=== PATIENT | male | born 1955 | race Two or more races ===

== ENCOUNTER → 2016-05-04 | Outpatient (CLI) | payer BC ==
--- NOTE | 2016-05-04 09:31 | MR ---
EXAMINATION TYPE: MR cervical spine wo con DATE OF EXAM: 05/04/2016 7:42 AM COMPARISON: NONE HISTORY: csp disc degeneration, neck and right shoulder pain TECHNIQUE: Multiplanar, multisequence images of the cervical spine were acquired. C2-C3: No evidence for degenerative disc disease. No disc bulge/herniation or protrusion. No Canal stenosis. Foramina are patent bilaterally. C3-C4: Broad-based disc bulges anterior thecal sac compression. This may be slightly greater to the l eft paracentral left lateral direction. There is severe left and moderate right foraminal stenosis. C orrelate with radicular symptoms. C4-C5: Small central disc protrusion is present with anterior thecal sac contact. No AP spinal canal stenosis is present. Cord contact may be present. There is moderate bilateral foraminal narrowing fro m uncovertebral joint hypertrophy. C5-C6: There is central disc bulging some left paracentral and left lateral disc bulge may be present at the origin of the foramen. Correlate with left radicular symptoms. Uncovertebral joint hypertroph y is contributing to bilateral foraminal narrowing. Some endplate spurring is present bilaterally. No definite cord contact is evident. This is in close approximation with spinal cord however. C6-C7: Some minimal subsequent ligamentous central disc herniation may be present. Mild broad-based d isc bulge is present without cord contact. Mild anterior thecal sac flattening is present. Uncoverteb ral joint hypertrophy is present with moderate left and mild right foraminal narrowing. C7-T1: Uncovertebral joint hypertrophy is causing bilateral mild foraminal narrowing. Mild disc bulgi ng is anterior thecal sac contact. No cord contact is evident. No spinal canal stenosis is present. Cervical segments are intact. There is normal alignment. Cervical spinal cord is of normal signal. Craniovertebral junction relationships are within normal limits. IMPRESSION: Foraminal stenosis greatest at C3-4 on the left. 4 moderate foraminal narrowing is present within the mid cervical spine from uncovertebral joint hypertrophy. 2. Disc bulging notably at C3-4 C4-5 with anterior thecal sac compression. This comes in close approx imation with spinal cord without deformity. 3. Correlate with left C5-C6 radicular symptoms do uncovertebral joint hypertrophy, left paracentral left lateral disc bulge and endplate spurring.
== END | disposition home or self-care (01) ==
LOC: RADMRIMAIN 07:05
PROVIDERS: ATTEND Internal Medicine
DX: M48.02 Spinal stenosis, cervical region (principal); M50.221 Other cervical disc displacement at C4-C5 level; M50.222 Other cervical disc displacement at C5-C6 level; M50.30 Other cervical disc degeneration, unspecified cervical region
CPT/HCPCS: 72141

== ENCOUNTER → 2021-11-11 | Outpatient (CLI) | payer BC, MEDICARE ==
[~2021-11-11] MED LIST: BEBTELOVIMAB (EUA) 175 MG/2 ML VIAL IV NR; SODIUM CHLORIDE 0.9% 500 ML 500 ML in EMPTY BAG 1 BAG IV PRN
[2021-11-11 14:03] VITALS: TEMP 98.4
[2021-11-11 14:27] VITALS: BP 143/73; PULSE 71; RESP 16
== END ==
LOC: PROCWHC3 12:45
PROVIDERS: ATTEND Nurse Practitioner Adult Health
DX: U07.1 COVID-19 (principal); Z88.0 Allergy status to penicillin; Z88.1 Allergy status to other antibiotic agents; Z91.030 Bee allergy status
CPT/HCPCS: Q0222; M0222

== ENCOUNTER → 2023-05-19 | Outpatient (CLI) | payer MEDICARE ==
--- NOTE | 2023-05-25 14:00 | MR ---
EXAMINATION TYPE: MR sacroiliac joints wo con DATE OF EXAM: 05/19/2023 COMPARISON: None HISTORY: Low back pain into left side x4 months CONTRAST: 0 mL intravenous Gadavist. TECHNIQUE: Multiplanar, multisequence images of the lumbar spine were acquired. Images were obtained through the sacrum and coccyx. FINDINGS: Cord terminates at the L1 level. Sacrum: The sacrum from S2 through the coccyx has a normal signal no spinal canal stenosis sacrum spa ce is normal. There is abnormal signal within the S1 level. Please see the L5-S1 disc level for addit ional discussion. L5-S1: There is diminished signal through the disc space. This is slightly hyperintense on the invers ion recovery and T2 weighted sequences There is loss of signal through the L5 and S1 vertebral body l evels. There is a collection of increased signal within the S1 vertebral body which is hyperintense o n T2 and hypointense on T1 weighted sequences. This extends towards the posterior superior endplate o f S1. This extends to nearly the osseous 1 S2 disc level. This appears to be fairly well marginated. Sagittal inversion recovery weighted sequences couple of small rounded areas are in the inferior endp late of L5. Consider osteomyelitis within the differential. Discitis should be considered at this lev el. L4-L5: No significant disc bulge or disc herniation. No spinal canal stenosis. No foraminal stenosi s. Mild facet hypertrophy is present. L3-L4: There is narrowing of disc height. Minimal endplate changes are present. No spinal canal sten osis. Mild foraminal narrowing is present.. L2-L3: No significant disc bulge or disc herniation. No spinal canal stenosis. No foraminal stenosi s. L1-L2: No significant disc bulge or disc herniation. No spinal canal stenosis. No foraminal stenosi s. T12-L1: No significant disc bulge or disc herniation. No spinal canal stenosis. No foraminal stenos is. IMPRESSION: 1. Signal abnormality within the L5 and S1 levels with hyperintense fairly well delineated collection s within the inferior L5 and superior S1 levels. Differential diagnosis should include discitis and o steomyelitis. Recommend contrast MRI [place] spine for closer evaluation. 2. Mild degenerative disc change L3-4 without stenosis.
== END | disposition home or self-care (01) ==
LOC: RADMRIMAIN 20:45
PROVIDERS: ATTEND Psychiatry & Neurology Neurology
DX: M51.36 Other intervertebral disc degeneration, lumbar region (principal); M54.42 Lumbago with sciatica, left side; M46.1 Sacroiliitis, not elsewhere classified
CPT/HCPCS: 72148; 72195

== ENCOUNTER → 2023-06-09 | Outpatient (CLI) | payer MEDICARE ==
--- NOTE | 2023-06-09 12:03 | MR ---
EXAMINATION TYPE: MR lumbar spine w con DATE OF EXAM: 06/09/2023 COMPARISON: Noncontrast MRI 05/19/2023 HISTORY: 68-year-old male M54.42, LBP, abnormal MRI lumbar 05-19-23. Technique: Multiplanar, multisequence images of the lumbar spine were obtained before and after admin istration of 7.5 mL intravenous Gadavist gadolinium contrast. FINDINGS: The previous extensive edema and marrow replacement involving the L5 and S1 vertebral bodies and to a lesser extent the superior aspect of the S2 vertebral body shows avid postcontrast enhancement. Ther e are more focal nodular enhancing areas at the inferior endplate of L5, more extensively along the s uperior endplate of S1, and in a fingerlike extension extending down the S1 vertebral body to the S2 superior endplate. Mild intradiscal enhancement L5-S1. Corresponding paravertebral soft tissue thickening and enhancement and mild ventral epidural enhancem ent at these involved levels. No evident canal compromise. There may be severe right and moderate to severe left neuroforaminal kelsi nosis at L5-S1. Also moderate to severe on the left at L4-L5 and moderate on both sides at L3-L4 and on the right at L4-L5. IMPRESSION: 1. Correlate for extensive osteomyelitis L5 and S1 vertebral bodies with extension into the superior aspect of the S2 vertebral body. Discitis at L5-S1 is not as pronounced. 2. Paravertebral soft tissue thickening with inflammatory enhancement and mild ventral epidural enhan cement along the involved levels as well. No discrete abscess.
== END | disposition home or self-care (01) ==
LOC: RADMRIMAIN 07:17
PROVIDERS: ATTEND Psychiatry & Neurology Neurology
DX: M79.89 Other specified soft tissue disorders (principal); M54.42 Lumbago with sciatica, left side
CPT/HCPCS: 72149; A9585

== ENCOUNTER → 2023-06-12 | Outpatient (CLI) | payer MEDICARE ==
[2023-06-12 20:07] LABS: Basophils # (A) 0.1 k/uL (0-0.2); Basophils % (A) 1 %; Eosinophils # (A) 0.2 k/uL (0-0.7); Eosinophils % (A) 2 %; HCT 36.4 % (39.0-53.0); HGB 12.1 gm/dL (13.0-17.5); Lymphocytes # (A) 2.5 k/uL (1.0-4.8); Lymphocytes % (A) 26 %; MCH 32.6 pg (25.0-35.0); MCHC 33.2 g/dL (31.0-37.0); MCV 98.1 fL (80.0-100.0); Macrocytosis Slight; Mean Platelet Volume 7.1; Monocytes # (A) 0.7 k/uL (0-1.0); Monocytes % (A) 7 %; Neutrophils # (A) 5.8 k/uL (1.3-7.7); Neutrophils % (A) 60 %; Platelet Count 396 k/uL (150-450); RBC 3.71 m/uL (4.30-5.90); RDW 15.3 % (11.5-15.5); WBC 9.7 k/uL (3.8-10.6)
[2023-06-12 20:21] LABS: Appearance,Urine Clear (Clear); Bilirubin,Urine Negative (Negative); Blood,Urine Negative (Negative); Color,Urine Colorless; Glucose,Urine (UA) Negative (Negative); Ketones,Urine Negative (Negative); Leukocyte Esterase,Urine Negative (Negative); Nitrite,Urine Negative (Negative); Protein,Urine Negative (Negative); Specific Gravity,Urine 1.014 (1.001-1.035); Urobilinogen,Urine <2.0 mg/dL (<2.0)
[2023-06-12 23:08] LABS: Erythrocyte Sedimentation Rate 16 mm/Hr (0-20)
== END | disposition home or self-care (01) ==
LOC: LABMAIN 19:01
PROVIDERS: ATTEND Psychiatry & Neurology Neurology
DX: M86.9 Osteomyelitis, unspecified (principal)
CPT/HCPCS: 81003; 85025; 85652; 86140; 87040; 87086

== ENCOUNTER 2023-06-16 14:23 | Inpatient (IN) | payer MEDICARE ==
[2023-06-16] MEDS ORDERED: VANCOMYCIN IV PER PHARMACY 1 EACH MISC MISCELLANE PRN (15:46)
[2023-06-16] MEDS: cefTRIAXone IN SWFI 1,000 MG/10 ML SYRINGE IVP STA (16:24)
[2023-06-16] MEDS: MORPHINE SULFATE 4 MG/ML SYRINGE IVP STA (16:24)
[2023-06-16] MEDS: VANCOMYCIN 1,250 MG in SODIUM CHLORIDE 0.9% 250 ML IVPB STA (16:24)
--- NOTE | 2023-06-16 16:33 | P.PN ---
Progress Note - Text Progress Note Date: 06/16/23 Full consult pending Spoke with 80 over the phone per report the patient was sent in for MRI abnormal findings and evaluation of lower extremity weakness. The patient has a history of trauma several months ago for which he was treated however he continued to progress and get worse MRI was done which shows now hyperintense signal on STIR and T2 images of the L5 vertebral body as well as S1-S2 vertebral bodies with likely osteomyelitis discitis-like findings. There is moderate to severe for aminal stenosis and central stenosis at L4 5 and L5-S1 related to this. There is no epidural abscess that is visible at this time. The patient is being worked up currently labs are pending what has been done to show no signs of sepsis at this time. Due to the patient's age and condition we did recommend further evaluation with computed tomography scan of the thoracolumbar spine labs to rule out any sort of pathologic disease as well as a thorough neuro exam to assess for need of MRI of cervical and thoracic spine. These are warranted anyways due to neural axial imaging and potential infection in these areas as well. Currently the patient is neurovascularly intact per report he does have some lower extremity weakness and radiculopathy of which is newer for him. He has some back pain as well. The patient is currently being treated with vancomycin and cefepime. He will be admitted to medicine with spine surgery and infectious disease consults.
--- NOTE | 2023-06-16 16:47 | ED ---
General Adult HPI - General Chief complaint: Recheck/Abnormal Lab/Rx Stated complaint: Abn labs Time Seen by Provider: 06/16/23 15:23 Source: patient Mode of arrival: ambulatory Limitations: no limitations - History of Present Illness Initial comments: Chay is a 68yo M who is sent to the ER via vehicle from his neurologist office. Patient has been dealing with low back pain and left leg sciatica since a fall around [facility] of last year. Symptoms have been progressively worsening patient is now exhibiting left foot drop. Neurologist has performed an outpatient MRI of the spine and SI joints as well as the MRI of the lumbar spine with contrast which was performed 7 days ago and was concerning for extensive osteomyelitis with discitis. Patient states that he has had progressively worsening pain in his low back he has been taking increasing doses of his pain medication with minimal relief. Patient does note some pain down his left leg and trouble with walking. - Related Data Home Medications Medication Instructions Recorded Confirmed HYDROcodone/APAP 10-325MG [[place] 1 tab PO Q6HR PRN 06/16/23 06/16/23 10-325] Metoprolol Succinate [Metoprolol 25 mg PO DAILY 06/16/23 06/16/23 Succinate ER] clonazePAM [KlonoPIN] 1 mg PO DAILY 06/16/23 06/16/23 traZODone HCL 100 mg PO BID 06/16/23 06/16/23 Allergies Allergy/AdvReac Type Severity Reaction Status Date / Time bee venom protein (honey bee) Allergy Unknown Unknown Verified 06/16/23 16:33 doxycycline Allergy Unknown Unknown Verified 06/16/23 16:33 Penicillins Allergy Unknown Unknown Verified 06/16/23 16:33 Childhood Review of Systems ROS Statement: Those systems with pertinent positive or pertinent negative responses have been documented in the HPI. ROS Other: All systems not noted in ROS Statement are negative. Past Medical History Past Medical History: No Reported History History of Any Multi-Drug Resistant Organisms: None Reported Past Surgical History: No Surgical Hx Reported Past Psychological History: No Psychological Hx Reported Smoking Status: Current every day smoker Past Alcohol Use History: Occasional Past Drug Use History: Marijuana General Exam Limitations: no limitations Head exam: Present: atraumatic Eye exam: Present: normal appearance ENT exam: Present: normal exam Neck exam: Present: normal inspection Respiratory exam: Present: normal lung sounds bilaterally. Absent: respiratory distress Cardiovascular Exam: Present: regular rate GI/Abdominal exam: Absent: distended Rectal exam: Present: deferred Extremities exam: Present: full ROM Back exam: Present: tenderness, paraspinal tenderness, vertebral tenderness Neurological exam: Present: alert, oriented X3 Expanded Motor strength exam: RLE: 4 (decreased strength in dorsiflexion ), LLE: 5 DTR: Patellar (R): 2+, Patellar (L): 1+ Eye Response: (4) open spontaneously Motor Response: (6) obeys commands Verbal Response: (5) oriented Psychiatric exam: Present: normal affect, normal mood Skin exam: Present: warm, dry, intact Course Vital Signs 06/16/23 06/16/23 14:31 17:44 Temperature 97.8 F Pulse Rate 74 60 Respiratory 20 18 Rate Blood Pressure 188/93 173/86 O2 Sat by Pulse 98 98 Oximetry Medical Decision Making - Medical Decision Making Was pt. sent in by a medical professional or institution (, PA, WELDING TECHNICIAN, urgent care, hospital, or [facility]...) When possible be specific @ -Yes sent by Dr. Marinelli neurologist Did you speak to anyone other than the patient for history (EMS, parent, family, police, friend...)? What history was obtained from this source @ -No Did you review nursing and triage notes (agree or disagree)? Why? @ -I reviewed and agree with nursing and triage notes Were old charts reviewed (outside hosp., previous admission, EMS record, old EKG, old radiological studies, urgent care reports/EKG's, [facility] records)? Report findings @ -Previous labs and MRI imaging was reviewed Differential Diagnosis (chest pain, altered mental status, abdominal pain women, abdominal pain men, vaginal bleeding, weakness, fever, dyspnea, syncope, headache, dizziness, GI bleed, back pain, seizure, CVA, palpatations, mental health)? @ -Differential includes osteomyelitis/discitis, metastatic disease EKG interpreted by me (3pts min.). @ -As above X-rays interpreted by me (1pt min.). @ -None done CT interpreted by me (1pt min.). @ -CT of the thorax and lumbar spine was performed reviewed by me I do see some lytic appearing lesions in L5-S1 as well as inflammatory changes at the disc. No obvious fractures or malalignment. U/S interpreted by me (1pt. min.). @ -None done What testing was considered but not performed or refused? (CT, X-rays, U/S, labs)? Why? @ -MRI skull to pelvis will be done inpatient per Dr. Patel's and What meds were considered but not given or refused? Why? @ -None Did you discuss the management of the patient with other professionals (professionals i.e. Dr., PA, WELDING TECHNICIAN, lab, RT, psych nurse, social worker psychiatric, motor vehicle representative, teacher, corporate officer, case management assistant)? Give summary @ -Discussed with admitting physician Dr. Hurtado as well as spine surgeon Dr. Patelson Was smoking cessation discussed for >3mins.? @ -No Was critical care preformed (if so, how long)? @ -No Were there social determinants of health that impacted care today? How? (Homelessness, low income, unemployed, alcoholism, drug addiction, transportation, low edu. Level, literacy, decrease access to med. care, [place] [facility], rehab)? @ -No Was there de-escalation of care discussed even if they declined (Discuss DNR or withdrawal of care, Hospice)? DNR status @ -No What co-morbidities impacted this encounter? (DM, HTN, Smoking, COPD, CAD, Cancer, CVA, ARF, Chemo, Hep., AIDS, mental health diagnosis, sleep apnea, morbid obesity)? @ -None Was patient admitted / discharged? Hospital course, mention meds given and route, prescriptions, significant lab abnormalities, going to OR and other pertinent info. @ -Admit The patient was seen and evaluated, history is obtained from the patient and review of the patient's labs and imaging. Patient has MRI concerning for osteomyelitis with discitis. These results were discussed with the spine surgeon who has concern for osteomyelitis and discitis versus metastatic disease. Labs were obtained including a septic workup, PSA, serum and urine electropheresis. ESR and CRP had been performed on Wednesday and were not elevated, Dr. Patel send stated these will be repeated during admission for trending. Undiagnosed new problem with uncertain prognosis? @ -Yes Drug Therapy requiring intensive monitoring for toxicity (Heparin, Nitro, Insulin, Cardizem)? @ -No Were any procedures done? @ -No Diagnosis/symptom? @ -Lumbar spine osteomyelitis and discitis Acute, or Chronic, or Acute on Chronic? @ -Default Uncomplicated (without systemic symptoms) or Complicated (systemic symptoms)? @ -Complicated Side effects of treatment? @ -No Exacerbation, Progression, or Severe Exacerbation? @ -No Poses a threat to life or bodily function? How? (Chest pain, [place], [place], pneumonia, PE, COPD, DKA, ARF, appy, cholecystitis, CVA, Diverticulitis, Homicidal, Suicidal, threat to staff... and all critical care pts) @ -Yes can advance to epidural abscess sepsis septic shock and - Lab Data Result diagrams: 06/16/23 16:19 06/16/23 16:19 Lab Results 06/16/23 06/16/23 06/16/23 Range/Units 16:19 16:19 16:19 WBC 11.3 H (3.8-10.6) k/uL RBC 3.79 L (4.30-5.90) m/uL Hgb 12.2 L (13.0-17.5) gm/dL Hct 37.7 L (39.0-53.0) % MCV 99.5 (80.0-100.0) fL MCH 32.1 (25.0-35.0) pg MCHC 32.2 (31.0-37.0) g/dL RDW 15.1 (11.5-15.5) % Plt Count 399 (150-450) k/uL MPV 7.1 Neutrophils % 64 % Lymphocytes % 24 % Monocytes % 7 % Eosinophils % 2 % Basophils % 1 % Neutrophils # 7.2 (1.3-7.7) k/uL Lymphocytes # 2.7 (1.0-4.8) k/uL Monocytes # 0.8 (0-1.0) k/uL Eosinophils # 0.2 (0-0.7) k/uL Basophils # 0.1 (0-0.2) k/uL Macrocytosis Slight PT 10.1 (10.0-12.5) sec INR 0.9 (<1.2) APTT 23.8 (22.0-30.0) sec Sodium 139 (137-145) mmol/L Potassium 4.1 (3.5-5.1) mmol/L Chloride 103 (98-107) mmol/L Carbon Dioxide 30 (22-30) mmol/L Anion Gap 6 mmol/L BUN 9 (9-20) mg/dL Creatinine 0.67 (0.66-1.25) mg/dL Est GFR (CKD-EPI)AfAm >90 (>60 ml/min/1.73 sqM) Est GFR (CKD-EPI)NonAf >90 (>60 ml/min/1.73 sqM) Glucose 83 (74-99) mg/dL Plasma Lactic Acid Paulo (0.7-2.0) mmol/L Calcium 9.4 (8.4-10.2) mg/dL Total Bilirubin 0.6 (0.2-1.3) mg/dL AST 33 (17-59) U/L ALT 19 (4-49) U/L Alkaline Phosphatase 100 (38-126) U/L Total Protein 7.7 (6.3-8.2) g/dL Albumin 4.2 (3.5-5.0) g/dL 06/16/23 Range/Units 16:19 WBC (3.8-10.6) k/uL RBC (4.30-5.90) m/uL Hgb (13.0-17.5) gm/dL Hct (39.0-53.0) % MCV (80.0-100.0) fL MCH (25.0-35.0) pg MCHC (31.0-37.0) g/dL RDW (11.5-15.5) % Plt Count (150-450) k/uL MPV Neutrophils % % Lymphocytes % % Monocytes % % Eosinophils % % Basophils % % Neutrophils # (1.3-7.7) k/uL Lymphocytes # (1.0-4.8) k/uL Monocytes # (0-1.0) k/uL Eosinophils # (0-0.7) k/uL Basophils # (0-0.2) k/uL Macrocytosis PT (10.0-12.5) sec INR (<1.2) APTT (22.0-30.0) sec Sodium (137-145) mmol/L Potassium (3.5-5.1) mmol/L Chloride (98-107) mmol/L Carbon Dioxide (22-30) mmol/L Anion Gap mmol/L BUN (9-20) mg/dL Creatinine (0.66-1.25) mg/dL Est GFR (CKD-EPI)AfAm (>60 ml/min/1.73 sqM) Est GFR (CKD-EPI)NonAf (>60 ml/min/1.73 sqM) Glucose (74-99) mg/dL Plasma Lactic Acid Paulo 0.7 (0.7-2.0) mmol/L Calcium (8.4-10.2) mg/dL Total Bilirubin (0.2-1.3) mg/dL AST (17-59) U/L ALT (4-49) U/L Alkaline Phosphatase (38-126) U/L Total Protein (6.3-8.2) g/dL Albumin (3.5-5.0) g/dL Disposition Clinical Impression: Osteomyelitis of lumbar spine, Discitis, Foot drop, left Disposition: ADMITTED IP TO THIS [facility] Condition: Serious Is patient prescribed a controlled substance at d/c from ED?: No
[2023-06-16] MEDS ORDERED: NALOXONE 0.4 MG/ML 1 ML VIAL IV PRN (16:50)
[2023-06-16 16:53] LABS: Basophils # (A) 0.1 k/uL (0-0.2); Basophils % (A) 1 %; Eosinophils # (A) 0.2 k/uL (0-0.7); Eosinophils % (A) 2 %; HCT 37.7 % (39.0-53.0); HGB 12.2 gm/dL (13.0-17.5); Lymphocytes # (A) 2.7 k/uL (1.0-4.8); Lymphocytes % (A) 24 %; MCH 32.1 pg (25.0-35.0); MCHC 32.2 g/dL (31.0-37.0); MCV 99.5 fL (80.0-100.0); Macrocytosis Slight; Mean Platelet Volume 7.1; Monocytes # (A) 0.8 k/uL (0-1.0); Monocytes % (A) 7 %; Neutrophils # (A) 7.2 k/uL (1.3-7.7); Neutrophils % (A) 64 %; Platelet Count 399 k/uL (150-450); RBC 3.79 m/uL (4.30-5.90); RDW 15.1 % (11.5-15.5); WBC 11.3 k/uL (3.8-10.6)
--- NOTE | 2023-06-16 17:01 | CT ---
EXAMINATION TYPE: CT thor lumbar spine wo con DATE OF EXAM: 06/16/2023 COMPARISON: Recent MRI 06/09/2023 HISTORY: abnormal MRI, pain following fall one month ago CT DLP: 765.[address] of the thoracic and lumbar spine was performed. Bone and soft tissue window settings a re submitted as well as coronal and sagittal reconstructions. Thoracic spine: No evidence for thoracic spine fracture. Discitis or bony destructive process to suggest osteomyelitis. Moderate to severe multilevel degenera tive disc space narrowing greatest at T11-12 through T8-9. Ventral spondylosis. No evidence for centr al stenosis. Correlate with MRI. Mucous debris is seen at the level of the demond. Visualized lung fi elds are within normal limits. L1-L2: Normal disc space height. No disc herniation protrusion or central stenosis. No facet joint arthropathy. No evidence for foraminal encroachment. L2-L3: Vacuum disc. Posterior disc bulge. Mild encapsulating spur. Spondylosis noted. No central sten osis appreciated at this time. L3-L4: Moderate disc desiccation with moderate circumferential disc bulge greatest posterocentrally i nto the right. There is evidence of moderate central stenosis and right foraminal encroachment. L4-L5: Vacuum disks noted. Posterior disc bulge. No evidence for disc herniation although there is br oad-based posterior disc bulge with effacement of ventral thecal sac and bilateral lateral recess kelsi nosis. Mild central stenosis difficult to exclude. Bilateral foraminal encroachment left greater than right. L5-S1: Abnormal sclerosis and lucency involving the middle vertebral body of L5 as well as the inferi or endplate in addition to the S1 vertebral segment. Findings are compatible with a discitis with und erlying osteomyelitis. Epidural thickening redemonstrated as was seen on recent MRI. Paraspinal infla mmatory change noted without drainable abscess at this time.No obvious epidural abscess component alt selam MRI is much more sensitive No paraspinal masses are identified. Lumbar segments are free if fracture. IMPRESSION: 1. L5-S1 discitis with L5 and S1 osteomyelitis. No obvious epidural collection on this unenhanced bk dy. MRI with contrast is more sensitive. Epidural thickening redemonstrated as was seen on recent MRI . Paraspinal inflammatory change noted without drainable abscess at this time.
[2023-06-16 17:04] LABS: ALT 19 U/L (4-49); AST 33 U/L (17-59); African American GFR (CKD) >90 (>60 ml/min/1.73 sqM); Albumin 4.2 g/dL (3.5-5.0); Alkaline Phosphatase 100 U/L (38-126); Anion Gap 6 mmol/L; Blood Urea Nitrogen 9 mg/dL (9-20); Calcium 9.4 mg/dL (8.4-10.2); Carbon Dioxide 30 mmol/L (22-30); Chloride 103 mmol/L (98-107); Glucose 83 mg/dL (74-99); Non-African American GFR(CKD) >90 (>60 ml/min/1.73 sqM); Potassium 4.1 mmol/L (3.5-5.1); Sodium 139 mmol/L (137-145); Total Bilirubin 0.6 mg/dL (0.2-1.3); Total Protein 7.7 g/dL (6.3-8.2)
[2023-06-16 17:11] LABS: INR 0.9 (<1.2); Partial Thromboplastin Time 23.8 sec (22.0-30.0); Prothrombin Time 10.1 sec (10.0-12.5)
[2023-06-16] MEDS: MORPHINE SULFATE 4 MG/ML SYRINGE IV PRN (17:46)
[2023-06-16] MEDS: HYDROcodone/APAP 5-325MG 1 EACH TAB PO PRN (19:00)
[2023-06-17] MEDS ORDERED: VANCOMYCIN IV PER PHARMACY 1 EACH MISC MISCELLANE PRN (00:50)
[2023-06-17] MEDS: ALPRAZolam 0.5 MG TAB PO PRN (01:08)
--- NOTE | 2023-06-17 01:12 | P.HPIM ---
History of Present Illness H&P Date: 06/16/23 Chief Complaint: Low back pain lower extremity weakness 68-year-old male no significant past medical history Patient coming in for evaluation of vertebral spine osteomyelitis. Patient had sustained showed an episode of weakness and pain in his lower extremity around giving of last year since then he has been having some chronic low back pain with radiculopathy to the bilateral lower extremities mainly left lower extremity he has been through multiple doctors physical therapy occupational therapy resulting in minimal steady improvements he had multiple imaging of his lower back and recently had an MRI of his lumbar spine which was suspicious for osteomyelitis discitis for which his neurologist recommended he comes to the hospital for further evaluation patient otherwise denies any fevers chills denies any open wounds denies any history of surgery denies any IV drug abuse he denies any significant unintentional weight loss he reports that he gained some weight initially after the injury however since his physical therapy and increased activity he has been losing that extra weight he denies any bleeding denies any difficulties with urination or bowel movements Patient is able to ambulate however he has an awkward walk due to weakness in his left lower extremity therefore he seems to have some degree of ataxia but denies any falling He also reports some decreased hearing in his right ear but denies any vision changes headache or any other focal neurodeficits patient denies any chest pain trouble breathing fevers chills nausea vomiting GI bleeding abdominal pain MRI of the lumbar spine was concerning for extensive osteomyelitis L5 and S1 lev tebral bodies with extension into the superior aspect of this to vertebral body discitis at L5-S1 is not as pronounced paravertebral soft tissue thickening with inflammatory enhancement and mild ventral epidural enhancement along the involved levels as well no discrete abscess review of systems Pertinent positives as noted in HPI. All other systems were reviewed and are negative on exam Constitutional: No acute distress, conversant, pleasant Eyes: Anicteric sclerae, moist conjunctiva, Pupils equal round reactive to light ENMT: NC/AT Oropharynx clear, no erythema, or exudates Neck: Supple, no masses, or JVD No carotid bruits No thyromegaly Lungs: Clear to auscultation Clear to percussion Normal respiratory effort, no accessory muscle use Cardiovascular: Heart regular in rate and rhythm, No murmurs, gallops, or rubs No peripheral edema Abdominal: Soft Nontender, no guarding, rebound or rigidity Abdomen moving with respiration Normoactive bowel sounds No point tenderness over the lumbar spine Extremities: No digital cyanosis No clubbing Pedal pulses intact and symmetrical Radial pulses intact and symmetrical No calf tenderness Psychiatric: Alert and oriented to person, place and time Appropriate affect fair judgement Neuro Muscles Strength 5/5 in bilateral upper extremities, 3 out of 5 in le ft lower extremity 4 out of 5 in right lower extremity Sensation to light touch grossly present throughout Cranial nerves II-XII grossly intact Lymphatics: no palpable cervical or supraclavicular lymph nodes Past Medical History Past Medical History: No Reported History History of Any Multi-Drug Resistant Organisms: None Reported Past Surgical History: No Surgical Hx Reported Past Psychological History: No Psychological Hx Reported Smoking Status: Current every day smoker Past Alcohol Use History: Occasional Past Drug Use History: Marijuana Medications and Allergies Home Medications Medication Instructions Recorded Confirmed Type HYDROcodone/APAP 10-325MG [[place] 1 tab PO Q6HR PRN 06/16/23 06/16/23 History 10-325] Metoprolol Succinate [Metoprolol 25 mg PO DAILY 06/16/23 06/16/23 History Succinate ER] clonazePAM [KlonoPIN] 1 mg PO DAILY 06/16/23 06/16/23 History traZODone HCL 100 mg PO BID 06/16/23 06/16/23 History Allergies Allergy/AdvReac Type Severity Reaction Status Date / Time bee venom protein (honey bee) Allergy Unknown Unknown Verified 06/16/23 16:33 doxycycline Allergy Unknown Unknown Verified 06/16/23 16:33 Penicillins Allergy Unknown Unknown Verified 06/16/23 16:33 Childhood Physical Exam Vitals: Vital Signs Temp Pulse Pulse Resp BP BP Pulse Ox 06/16/23 21:24 98.0 F 62 18 183/91 98 06/16/23 20:00 18 166/86 97 06/16/23 17:44 60 18 173/86 98 06/16/23 14:31 97.8 F 74 20 188/93 98 Intake and Output 06/16/23 06/16/23 06/17/23 14:59 22:59 06:59 Other: Weight 73.482 kg 73.482 kg Results CBC & Chem 7: 06/16/23 16:19 06/16/23 16:19 Labs: Abnormal Lab Results - Last 24 Hours (Table) 04/24/24 Range/Units 16:19 WBC 11.3 H (3.8-10.6) k/uL RBC 3.79 L (4.30-5.90) m/uL Hgb 12.2 L (13.0-17.5) gm/dL Hct 37.7 L (39.0-53.0) % Assessment and Plan Assessment: 68-year-old male with no significant past medical history has been having chronic low back pain since a fall due to lower extremity weakness back in December 2022 he went through physical therapy with gradual slow improvement [place] recently had an MRI of his lower back which was concerning for his neurologist regarding possible osteomyelitis and discitis at level of L5-S1 for which he presented to the hospital I discussed the case with ED doctor and accepted the admission for chronic low back pain with left lower extremity radiculopathy with imaging findings concerning for osteomyelitis/discitis with anticipated length of stay more than 2 midnights Osteomyelitis/discitis in the lumbar sacral spine Follow-up cultures Vancomycin dosing by pharmacy Orthopedic spine consult ID consult Tylenol for fever White count 11.3 Afebrile Fall precautions Pain control with [place] 10 and as needed every 6 hours 1 tab orally Morphine 4 mg IV push every 6 hours as needed Check ESR CRP Check blood cultures MRI of the lumbar spine was concerning for extensive osteomyelitis L5 and S1 vertebral bodies with extension into the superior aspect of this to vertebral body discitis at L5-S1 is not as pronounced paravertebral soft tissue thickening with inflammatory enhancement and mild ventral epidural enhancement along the involved levels as well no discrete abscess Rest of blood work unremarkable sodium 139 potassium 4.1 BUN 9 creatinine 0.67 Patient reports decreased hearing right ear with occasional headache check brain CT scan without contrast Full code DVT prophylaxis heparin subcu 3 times daily
[2023-06-17 03:42] LABS: Protein, Total 7.9 g/dL (6.2-8.2)
[2023-06-17] MEDS ORDERED: VANCOMYCIN 1,250 MG in SODIUM CHLORIDE 0.9% 250 ML IVPB SCH (04:00)
[2023-06-17] MEDS: VANCOMYCIN 1,250 MG in SODIUM CHLORIDE 0.9% 250 ML IVPB SCH (05:57)
--- NOTE | 2023-06-17 08:40 | P.CNOR ---
History of Present Illness - [facility] Consult date: 06/17/23 Requesting physician: Blanche Deleon Consult reason: low back pain, other (Spinal osteomyelitis) History of present illness: History of Presenting Illness Patient is a pleasant 68-year-old male who presented to the ER for evaluation of possible lumbar spine osteomyelitis. Patient reports that he was sent in by Dr. Marinelli after reviewing MRI results. Patient states back in he had a severe fall with hitting his head with LOC. Patient reports that he did lay around home for approximately 1 week. He did not seek medical attention. Patient reports he continued with moderate amount of low back pain that radiated into the bilateral lower extremities associated with numbness and tingling, he reports the left lower extremity is worse. Patient states he was sent to see Dr. Marinelli by Dr. Velasquez for an evaluation and pain management. Patient states he did multiple rounds of physical therapy without relief. Patient does report that he lives with his spouse. He is normally independent. Patient states he is aware of his unsteady gait, although he denies using any assistive devices. Patient reports no medical or orthopedic history. MRI of the lumbar spine with contrast was taken on 06/09/2023 and demonstrated ex tensive osteomyelitis at L5 and S1 vertebral bodies with extension into the superior aspect of the S2 vertebral body. Discitis at L5-S1 is not as pronounced. Paravertebral soft tissue thickening with inflammatory enhancement and mild ventral epidural enhancement along the involved levels as well. No discrete abscess. Patient seen and examined this morning. Patient is resting in bed. Patient reports a moderate amount of lumbar pain that radiates into the bilateral lower extremities, associated with numbness and tingling. Patient demonstrates left lower extremity weakness during exam. Review of Systems Pertinent positives and negatives as discussed in HPI, a complete review of systems was performed and all other systems are negative. Physical Examination General: The patient is awake and alert, in no acute distress Skin: Skin is warm and dry with no obvious rashes or lesions. Eye: Pupils are equal, round and reactive to light, extra-ocular movements are intact; there is normal conjunctiva bilaterally. Neck: The neck is supple, there is no tenderness and ROM intact. Cardiovascular: There is a regular rate and rhythm. No murmur, rub or gallop is appreciated. Respiratory: Respirations are non-labored, breath sounds are equal. Gastrointestinal: Soft, non-distended, non-tender abdomen. Back: There is moderate tenderness to palpation in the midline lumbar region. There is no obvious deformity. Musculoskeletal: ROM limited secondary to pain. Bilateral upper extremities 5/5, Right lower extremity 4+/5, Left lower extremity knee flexor 4/5, ankle dorsiflexor 4-/5, ankle plantarflexion 3+/5 and extensor hallucis 3+/5. Neurological: CN 2-12 intact. There are no obvious motor or sensory deficits. Movement and coordination equal and intact. Sensory exam to light touch intact C5-T1 and intact from L2-S1. Reflexes 2/4 in bilateral upper and lower extremities. Negative Hoffmans, babinski, and clonus signs. Psychiatric: Cooperative, appropriate mood & affect, normal judgment. Assessment and Plan Osteomyelitis/discitis in the lumbar sacral spine Lumbar pain Bilateral lower extremity radiculopathy Left lower extremity weakness At this time we recommend surgical intervention of a biopsy of S1 scheduled for tomorrow, 06/18/2023. Patient has also been boarded for an L4-S1 decompression and fusion for 06/22/2023. Continue with IV antibiotic therapy. Patient will be NPO at Midnight for biopsy tomorrow. Continue with pain management. Awaiting labs of SED rate and CRP. MRI of the Cervical and Thoracic Spine w& w/o contrast have been order to further evaluate the spine in entirety. 2. Appreciate medical management 3. Pain management -continue with IV morphine and oral [place]. Toradol and Gabapentin have been ordered. 4. GI prophylaxis - senna 5. DVT prophylaxis - heparin 6. PT/OT - weightbearing as tolerated with a walker as needed. LSO brace has been ordered. 7. Appreciate consult I reviewed and discussed this case with my attending Dr. Hogan, whom has reviewed this chart and films and is in agreement with assessment and plan of care as outlined above. I have personally seen and examined the patient, performed the documentation and the assessment and plan as written. Number of minutes spent on the visit: 35m. Past Medical History Past Medical History: No Reported History History of Any Multi-Drug Resistant Organisms: None Reported Past Surgical History: No Surgical Hx Reported Past Psychological History: No Psychological Hx Reported Smoking Status: Current every day smoker Past Alcohol Use History: Occasional Past Drug Use History: Marijuana Medications and Allergies Home Medications Medication Instructions Recorded Confirmed Type HYDROcodone/APAP 10-325MG [[place] 1 tab PO Q6HR PRN 06/16/23 06/16/23 History 10-325] Metoprolol Succinate [Metoprolol 25 mg PO DAILY 06/16/23 06/16/23 History Succinate ER] clonazePAM [KlonoPIN] 1 mg PO DAILY 06/16/23 06/16/23 History traZODone HCL 100 mg PO BID 06/16/23 06/16/23 History Allergies Allergy/AdvReac Type Severity Reaction Status Date / Time bee venom protein (honey bee) Allergy Unknown Unknown Verified 06/16/23 16:33 doxycycline Allergy Unknown Unknown Verified 06/16/23 16:33 Penicillins Allergy Unknown Unknown Verified 06/16/23 16:33 Childhood Results - Labs Labs: Abnormal Lab Results - Last 24 Hours (Table) 06/16/23 Range/Units 16:19 WBC 11.3 H (3.8-10.6) k/uL RBC 3.79 L (4.30-5.90) m/uL Hgb 12.2 L (13.0-17.5) gm/dL Hct 37.7 L (39.0-53.0) % H & H 06/16/23 Range/Units 16:19 Hgb 12.2 L (13.0-17.5) gm/dL Hct 37.7 L (39.0-53.0) % Coagulation 06/16/23 Range/Units 16:19 INR 0.9 (<1.2) Result Diagrams: 06/16/23 16:19 06/16/23 16:19
[2023-06-17 08:42] LABS: Basophils # (A) 0.1 k/uL (0-0.2); Basophils % (A) 1 %; Eosinophils # (A) 0.4 k/uL (0-0.7); Eosinophils % (A) 5 %; HCT 35.7 % (39.0-53.0); HGB 11.1 gm/dL (13.0-17.5); Lymphocytes # (A) 2.6 k/uL (1.0-4.8); Lymphocytes % (A) 26 %; MCH 31.5 pg (25.0-35.0); MCV 101.6 fL (80.0-100.0); Macrocytosis Slight; Mean Platelet Volume 7.8; Monocytes % (A) 10 %; Neutrophils # (A) 5.5 k/uL (1.3-7.7); Neutrophils % (A) 56 %; Platelet Count 426 k/uL (150-450); RBC 3.52 m/uL (4.30-5.90); RDW 14.9 % (11.5-15.5); WBC 9.8 k/uL (3.8-10.6)
[2023-06-17] MEDS: HEPARIN SODIUM,PORCINE 5,000 UNIT/ML 1 ML VIAL SQ SCH (09:46)
[2023-06-17] MEDS: METOPROLOL SUCCINATE (ER) 25 MG TAB.ER.24H PO SCH (09:46)
[2023-06-17] MEDS: KETOROLAC 15 MG/ML 1 ML VIAL IVP SCH (09:47)
[2023-06-17] MEDS: GABAPENTIN 300 MG CAP PO SCH (09:47)
[2023-06-17 11:07] LABS: African American GFR (CKD) >90 (>60 ml/min/1.73 sqM); Anion Gap 4 mmol/L; Blood Urea Nitrogen 9 mg/dL (9-20); Carbon Dioxide 35 mmol/L (22-30); Chloride 102 mmol/L (98-107); Glucose 66 mg/dL (74-99); Non-African American GFR(CKD) >90 (>60 ml/min/1.73 sqM); Potassium 4.2 mmol/L (3.5-5.1); Sodium 141 mmol/L (137-145)
--- NOTE | 2023-06-17 11:19 | CT ---
EXAMINATION TYPE: CT brain wo con DATE OF EXAM: 06/17/2023 COMPARISON: None HISTORY: 68-year-old male right sided hearing loss, occasional headaches TECHNIQUE: Examination was done in axial plane without intravenous contrast. Coronal and sagittal r econstructions performed. CT DLP: 1168 mGycm Automated exposure control for dose reduction was used. FINDINGS: There is no evidence of acute intracranial hemorrhage, acute ischemic changes, mass, mass-effect, or extra-axial fluid collection. There is no effacement of cerebral sulci or basal subarachnoid cister ns. There is no hydrocephalus. There is no midline shift. Arellano-white matter distinction is preserv ed. Moderate to severe mucosal thickening throughout the ethmoid air cells. Mild within the left greater than right maxillary sinuses and right frontal sinus. Slight rightward nasal septal deviation. Mastoi d air cells well pneumatized. Orbits and globes appear intact. IMPRESSION: No acute intracranial abnormality seen. Moderate to severe chronic bilateral ethmoid sinus disease an d mild elsewhere throughout the paranasal sinuses.
[2023-06-17] MEDS: ALPRAZolam 1 MG TAB PO STA (12:58)
[2023-06-17] MEDS: HYDROcodone/APAP 10-325MG 1 EACH TAB PO PRN (12:58)
--- NOTE | 2023-06-17 15:01 | P.PN ---
Progress Note - Text Progress Note Date: 06/17/23 Attempted to see pt. He was in MRI. Will follow up in AM. Plan for biopsy of the S1 region tomorrow with subsequent plans of decompression, fixation and evacuation of L4-S1 on Wednesday06/22/23. There is severe erosion of the S1 endplate and body due to purulence and infection. There is severe collapse of L5-S1 as well as L4-5. There is pending instability of the L5-S1 region due to the bony erosion. This will allow for treatment of the instability, infection and the neurological issues patient is having as well as the severe back pain. Cont with abx per ID. Pt needs Echo of heart to look for vegitations. Blood cx pending. Cont pain control. LSO brace ordered.
--- NOTE | 2023-06-17 16:01 | P.PN ---
Subjective Progress Note Date: 06/17/23 Hospital Course: 68-year-old male with history of hypertension, anxiety presenting from outpati ent surgery office with concern for persistent low back pain of left leg pain for few months. Had outpatient MRI concerning for extensive osteomyelitis with discitis involving L5-S1. MRI shows L5-S1 discitis with L5-S1 osteomyelitis, no obvious epidural collection, epidural thickening redemonstrated. Paraspinal inflammatory changes noted. Pertinent Imaging: Subjective: Pertinent positives and negatives as discussed above, a complete review of systems was performed and all other systems are negative. Vitals Signs Reviewed. General: Nontoxic, no distress, appears at stated age Derm: Warm, dry Head: Atraumatic, normocephalic, symmetric Eyes: EOMI, no lid lag, anicteric sclera Mouth: No lip lesion, mucus membranes moist Cardiovascular: S1S2 reg, no murmur Lungs: CTA bilateral, no rhonchi, no rales, no accessory muscle use Abdominal: Soft, nontender to palpation, no guarding, no appreciable organomegaly Ext: 3/5 strength in left lower extremity, 4/5 strength in right lower e xtremity, 5/5 strength in bilateral upper extremities Neuro: CN II-XI grossly intact, no focal neuro deficits Psych: Alert, oriented, appropriate affect Data Reviewed Today: Pertinent Labs: WBC 9.8, hemoglobin 11.1, creatinine 0.71, CRP 1.1 Imaging: Head CT shows no acute intracranial abnormalities, moderate to severe chronic bilateral ethmoid sinus disease Assessment and Plan: Active: Discitis/osteomyelitis of lumbosacral spine - Orthopedic spine surgery note reviewed, continue IV antibiotics, MRI pending with contrast - On IV vancomycin, monitor renal function - ID consult pending - Pain control with IV morphine as needed, Toradol 15 IV every 6 hours, oral [place] as needed, monitor for sedation - Also on gabapentin 300 mg 3 times daily - Blood cultures pending Chronic: Hypertension DVT ppx: Subcu heparin Code status: Full code Anticipated discharge place: Pending clinical course Anticipated discharge time: Pending clinical course Objective - Vital Signs Vital signs: Vital Signs Temp 98.7 F 06/17/23 15:20 Pulse 67 06/17/23 15:20 Resp 16 06/17/23 15:20 BP 132/78 06/17/23 15:20 Pulse Ox 97 04/25/24 15:20 FiO2 Intake & Output 06/16/23 06/17/23 06/17/23 18:59 06:59 18:59 Intake Total 637 Balance 637 Weight 73.482 kg Intake: Oral 637 Other: # Voids 2 - Labs CBC & Chem 7: 06/17/23 05:57 06/17/23 10:00 Labs: Abnormal Lab Results - Last 24 Hours (Table) 06/16/23 06/17/23 06/17/23 Range/Units 16:19 05:57 05:57 WBC 11.3 H (3.8-10.6) k/uL RBC 3.79 L 3.52 L (4.30-5.90) m/uL Hgb 12.2 L 11.1 L (13.0-17.5) gm/dL Hct 37.7 L 35.7 L (39.0-53.0) % MCV 101.6 H (80.0-100.0) fL Carbon Dioxide (22-30) mmol/L Glucose (74-99) mg/dL C-Reactive Protein 1.10 H (0.00-0.80) mg/dL 06/17/23 Range/Units 10:00 WBC (3.8-10.6) k/uL RBC (4.30-5.90) m/uL Hgb (13.0-17.5) gm/dL Hct (39.0-53.0) % MCV (80.0-100.0) fL Carbon Dioxide 35 H (22-30) mmol/L Glucose 66 L (74-99) mg/dL C-Reactive Protein (0.00-0.80) mg/dL
[2023-06-17] MEDS: VANCOMYCIN TROUGH DUE 1 EACH MISC MISCELLANE ONE (18:18)
[2023-06-17 18:50] LABS: Albumin 4.35 g/dL (3.80-4.90); Gamma Globulin 1.34 g/dL (0.70-1.50)
[2023-06-17] MEDS: HYDROcodone/APAP 10-325MG 1 EACH TAB PO ONE (18:55)
--- NOTE | 2023-06-17 22:03 | MR ---
EXAMINATION TYPE: MR cspine/tspine wo/w con DATE OF EXAM: 06/17/2023 COMPARISON: MRI cervical spine 2017. CT thoracic and lumbar spine one day earlier. HISTORY: Rule out Osteomyelitis, pain and fever. TECHNIQUE: Multiplanar, multisequence imaging of cervical and thoracic spine are performed without an d with IV contrast, patient injected with 7.5 cc of gadolinium. FINDINGS: C-SPINE: Sagittal images of the cervical spine show the craniocervical junction to remain within normal limits . The cervical and upper thoracic spinal cord is grossly normal in caliber and signal. Vertebral al ignment is stable and satisfactory. The vertebral body heights are maintained. [id number] mult ilevel disc space narrowing C5-C6 through C7-T1 levels greatest at the latter with heterogeneous pleu ritic type II endplate changes anteriorly. No suspicious osseous edema or abnormal enhancement.. Axial images show C2-C3 level to remain within normal limits. Axial images at C3-C4 levels demonstrate central disc protrusion mildly effacing anterior thecal sac and uncovertebral facet degenerative changes bilaterally causing mild to moderate left greater than r ight bilateral neural foraminal narrowing. Axial images at C4-C5 levels from broad-based right paracentral/foraminal disc protrusion effacing an terolateral thecal sac and causing moderate to advanced right with [id number] left-sided neural foraminal narrowing. Axial images at C5-C6 level broad-based posterior disc protrusion effacing anterior thecal sac and ca using moderate left greater than right bilateral neural foraminal narrowing. Artifact degradation on axial images is noted. Axial images at C6-C7 level redemonstrate mild broad disc bulge minimally effacing the anterior theca l sac and causing mild to moderate bilateral neural foraminal narrowing causing. Axial images at C7-T1 level shows mild broad-based disc bulge mildly effaces the anterior thecal sac and causing moderate left greater than right bilateral neural foraminal narrowing. IMPRESSION: No suspicious edema or enhancement to suggest acute osteomyelitis. Multilevel degenerativ e changes are redemonstrated with interval degenerative progression from 2017 MRI noted most prominen t in the mid cervical spine levels. T-SPINE: Spinal cord shows normal course, caliber, and signal as it courses the thoracic spine. Vertebral bod y heights and alignment are satisfactory. There is heterogeneous diminished T1 and slight increased T 2 signal with postcontrast enhancement involving the T8 vertebra extending into the adjacent disc spa miles and adjacent endplates of the T7 and T9 vertebra. Acute osteomyelitis at this level needs to be c onsidered. Posterior disc herniations at this level effaces anterior thecal sac. Additional posterior disc herniations are seen at T10-T11 on sagittal image 8. Smaller posterior disc herniation is noted at T2-T3 and T6-T7 along with T11-T12 levels. No additional abnormal enhancement is seen. IMPRESSION: Acute discitis/osteomyelitis involving the inferior T7 vertebra through the superior T9 v ertebra is suspected as detailed above.
--- NOTE | 2023-06-17 23:08 | P.CONS ---
History of Present Illness - Reason for Consult Consult date: 06/17/23 - History of Present Illness Patient is a 68-year-old male with no significant past medical history however the patient did have a fall around [facility], and the patient was trying to get to his car and since then has developed lower back pain for the patient has been referred to Dr. Marinelli from neurology by his PCP and the patient has been under care of him patient apparently recently did have an MRI that was suspicious for osteomyelitis and discitis Dr. Marinelli did call me yesterday about him and wanted the patient to be seen in the office keeping in mind his history and diagnosis and need for urgent treatment with IV antibiotic therapy Dr. Marinelli was advised to send the patient to the ER patient was subsequently sent to the ER for further evaluation patient denies high-grade fever or any chills and no fever have been recorded subsequently patient was not tachycardic hypotensive or hypoxic patient did have a white count of 11.3 his creatinine has been 17 creatinine 0.67 electrolytes are normal liver enzymes are normal CRP is 1.10 PSA 0.5 patient did have a lumbar and thoracic CT L4-S1 discitis with L5-S1 osteomyelitis no obvious epidural collection on this unenhanced study patient did have a cervical and thoracic spine MRI acute discitis/osteomyelitis involving the inferior T7 vertebra closely. T10 vertebra suspected and the patient lumbar spine MRI was done on 06/09/2023 mention to correlate for extensive osteomyelitis L5-S1 vertebral bodies extension into the superior aspect of S2 vertebral bodies paravertebral soft tissue thickening patient is currently on vancomycin infectious disease was consulted today for further management of antibiotic therapy patient has been evaluated by spine surgery who is planning for decompression fixation and evacuation of L4-S1 for 06/22/2023 Past Medical History Past Medical History: No Reported History History of Any Multi-Drug Resistant Organisms: None Reported Past Surgical History: No Surgical Hx Reported Past Psychological History: No Psychological Hx Reported Smoking Status: Current every day smoker Past Alcohol Use History: Occasional Past Drug Use History: Marijuana Medications and Allergies Home Medications Medication Instructions Recorded Confirmed Type HYDROcodone/APAP 10-325MG [Blythe 1 tab PO Q6HR PRN 06/16/23 06/16/23 History 10-325] Metoprolol Succinate [Metoprolol 25 mg PO DAILY 06/16/23 06/16/23 History Succinate ER] clonazePAM [KlonoPIN] 1 mg PO DAILY 06/16/23 06/16/23 History traZODone HCL 100 mg PO BID 06/16/23 06/16/23 History Allergies Allergy/AdvReac Type Severity Reaction Status Date / Time bee venom protein (honey bee) Allergy Unknown Unknown Verified 06/16/23 16:33 doxycycline Allergy Unknown Unknown Verified 06/16/23 16:33 Penicillins Allergy Unknown Unknown Verified 06/16/23 16:33 Childhood Physical Exam Vitals: Vital Signs Temp Pulse Pulse Resp BP BP BP 06/17/23 15:20 98.7 F 67 16 132/78 06/17/23 08:00 70 16 06/17/23 07:49 98.7 F 70 16 146/70 06/17/23 02:57 97.7 F 63 16 138/71 06/16/23 21:24 98.0 F 62 18 183/91 06/16/23 20:00 18 166/86 06/16/23 17:44 60 18 173/86 Pulse Ox 06/17/23 15:20 97 06/17/23 08:00 06/17/23 07:49 99 06/17/23 02:57 96 06/16/23 21:24 98 06/16/23 20:00 97 06/16/23 17:44 98 Intake and Output 06/17/23 06/17/23 06/17/23 06:59 14:59 22:59 Intake Total 637 Balance 637 Intake: Oral 637 Other: # Voids 2 Results CBC & Chem 7: 06/17/23 05:57 06/17/23 10:00 Labs: Abnormal Lab Results - Last 24 Hours (Table) 06/17/23 06/17/23 06/17/23 Range/Units 05:57 05:57 10:00 RBC 3.52 L (4.30-5.90) m/uL Hgb 11.1 L (13.0-17.5) gm/dL Hct 35.7 L (39.0-53.0) % MCV 101.6 H (80.0-100.0) fL Carbon Dioxide 35 H (22-30) mmol/L Glucose 66 L (74-99) mg/dL C-Reactive Protein 1.10 H (0.00-0.80) mg/dL Assessment and Plan Plan: 1patient presented to hospital with chronic pain to the lower back area and this patient has been diagnosed with osteomyelitis discitis involving L5-S1 area patient did have a history of trauma but no history of any fever or any chills and did have normal sed rate 2-patient did have multiple antibiotic allergy to penicillin and doxycycline 3-await surgical decompression and deep culture that will guide further antibiotic therapy keeping in mind identification of the pathogen is important and the patient does not look toxic it may be ortiz to hold on any empiric antibiotic therapy at this point will discuss further with spine surgery for now patient is covered with the vancomycin We will follow on clinical condition and cultures to further adjust medication if needed Thank you for this consultation we will follow the patient along with you Dictation was produced using [email or web address] dictation software. please excuse any grammatical, word or spelling errors. Time with Patient: Greater than 30
[2023-06-18 07:16] LABS: African American GFR (CKD) >90 (>60 ml/min/1.73 sqM); Anion Gap 6 mmol/L; Blood Urea Nitrogen 14 mg/dL (9-20); Calcium 9.4 mg/dL (8.4-10.2); Carbon Dioxide 29 mmol/L (22-30); Chloride 104 mmol/L (98-107); Glucose 89 mg/dL (74-99); Non-African American GFR(CKD) >90 (>60 ml/min/1.73 sqM); Potassium 4.5 mmol/L (3.5-5.1); Sodium 139 mmol/L (137-145)
[2023-06-18] MEDS: LIDOCAINE 1% INJ 10MG/ML (20 ML MDV) SQ ONE (10:27)
[2023-06-18 10:29] LABS: HCT 37.8 % (39.6-50.0); HGB 12.1 g/dL (13.0-17.0); MCH 31.8 pg (27.0-32.0); MCV 99.2 FL (80.0-97.0); Mean Platelet Volume 9.2 FL (9.5-12.2); NRBC Per 100 WBC 0 X 10*3/uL (0.00-0.01); Platelet Count 379 X 10*3/uL (140-440); RBC 3.81 X 10*6/uL (4.40-5.60); RDW 15.3 % (11.5-14.5); WBC 9.48 X 10*3/uL (4.50-10.00)
[2023-06-18 10:30] LABS: Basophils # (A) 0.09 X 10*3/uL (0.00-0.10); Basophils % (A) 0.9 %; Eosinophils # (A) 0.38 X 10*3/uL (0.04-0.35); Lymphocytes # (A) 2.77 X 10*3/uL (0.90-5.00); Lymphocytes % (A) 29.2 %; Monocytes # (A) 1.14 X 10*3/uL (0.20-1.00); Neutrophils # (A) 5.06 X 10*3/uL (1.80-7.70); Neutrophils % (A) 53.5 %
--- NOTE | 2023-06-18 10:39 | P.OP ---
Date of Procedure: 06/18/23 Description of Procedure: Date of Procedure: Preoperative Diagnosis: Need for long-term IV antibiotic access. Postoperative Diagnosis: Same. Procedure(s) Performed: Ultrasound-guided cannulation left brachial vein. Insertion of peripherally inserted central catheter under fluoroscopic guidance. Anesthesia: local (1% Xylocaine.) Surgeon: David Estimated Blood Loss (ml): 5 IV fluids (ml): 0 Urine output (ml): 0 Pathology: none sent Condition: stable Disposition: no change Indications for Procedure: Patient is a 68-year-old male with evidence of spinal infection. Patient will require long-term IV antibiotics as an outpatient patient is offered a PICC line to allow for intravenous administration of antibiotics. Description of Procedure: Patient was brought to the special procedure suite. The left upper extremity sterilely prepped and draped in usual manner. Ultrasound was utilized to ident tri the brachial vein, as the basilic appeared too small and the cephalic was not visualized, which was normally compressible free of visible thrombus. Permenant image was stored. 1% Xylocaine was utilized for local anesthesia tissues overlying the vein. Through this anesthetized area and with the aid of ultrasound a micropuncture needle was utilized to cannulate the vein. Once cannulated, Softip guidewire was advanced into the vein. The needle was withdrawn and a micropuncture sheath and dilator advanced over the guidewire. The guidewire was withdrawn and exchanged for the PICC guidewire and measured 40 cm to the cavoatrial junction. The catheter was cut to size and advanced into the cavoatrial junction without resistance. The sheath was peeled away. Blood was easily withdrawn through the catheter and the catheter was then flushed with heparinized saline solution and secured to the skin. Patient tolerated procedure well and was returned to their room in satisfactory and stable condition.
[2023-06-18] MEDS: LACTATED RINGERS 1,000 ML IV ONE (15:00)
[2023-06-18] MEDS ORDERED: ONDANSETRON 4 MG/2 ML VIAL ONE (15:02)
[2023-06-18] MEDS: ONDANSETRON 4 MG/2 ML VIAL IVP ONE (15:02)
[2023-06-18] MEDS: DEXAMETHASONE SOD PHOSPHATE 4 MG/ML 1 ML VIAL IV ONE (15:03)
[2023-06-18] MEDS: BUPIVACAINE (PF) 0.5% 30 ML VIAL SQ ONE ×2 (15:05→15:48)
[2023-06-18] MEDS: LIDOCAINE 2%-EPI 1:100,000 20 ML VIAL SQ ONE ×2 (15:05→15:48)
[2023-06-18] MEDS ORDERED: LIDOCAINE 1% INJ 10MG/ML (20 ML MDV) ONE (15:17)
[2023-06-18] MEDS ORDERED: GLYCOPYRROLATE 0.2 MG/ML 2 ML VIAL ONE (15:17)
[2023-06-18] MEDS ORDERED: HYDROmorphone (PF) 1 MG/ML ONE (15:17)
[2023-06-18] MEDS ORDERED: fentaNYL (PF) 50 MCG/ML 2 ML AMP ONE (15:17)
[2023-06-18] MEDS ORDERED: ROCURONIUM 10 MG/ML (5 ML VIAL) IV ONE (15:17)
[2023-06-18] MEDS ORDERED: MIDAZOLAM 2 MG/2 ML VIAL ONE (15:17)
[2023-06-18] MEDS ORDERED: PROPOFOL 10 MG/ML 20 ML VIAL IV ONE (15:17)
[2023-06-18] MEDS ORDERED: NEOSTIGMINE 1 MG/ML 10 ML VIAL ONE (15:17)
[2023-06-18] MEDS ORDERED: SUCCINYLCHOLINE CHLORIDE 200 MG/10 ML VIAL IV ONE (15:17)
--- NOTE | 2023-06-18 16:47 | XR ---
Fluoroscopy History: KYPHOPLASTY DAP: 13.521 Gycm2 FT: 1:54 LUMBAR BIOPSY L5 AND S1
--- NOTE | 2023-06-18 17:01 | P.OP ---
Date of Procedure: 06/18/23 Preoperative Diagnosis: 1. L5-S1 OSTEMYELITIS DISCITIS 2. 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 LE WEAKNESS 4. LOW BACK PAIN 5. [facility]operative Diagnosis: 1. L5-S1 OSTEMYELITIS DISCITIS 2. 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 LE WEAKNESS 4. LOW BACK PAIN 5. [facility] Procedure(s) Performed: 1. L5 AND S1 VERTEBRAL BODY BIOPSY Implants: NONE Anesthesia: GETA Surgeon: Roberto Hogan Estimated Blood Loss (ml): 5 IV fluids (ml): 200 Urine output (ml): 0 Pathology: other (X2 SPECIMINE SENT OF L5 AND S1 BOTH FOR CULTURE AND PATHOLOGY) Condition: stable Disposition: PACU Indications for Procedure: Spine Surgery Clinical and Risk Review Chay Luque is a 68 yo male presenting for evaluation of severe low back pain, MRI findings and LE weakness. Pt has a hx of trauma to the lumbar region back in December and he had been worked up by an outside neurologist for this for the past few months. Finally MRI was done, and the patient was found to have extensive chnages at L5-S1 and was promptly sent to ED for evaluation. . It was my pleasure to have seen and examined Chay In our visit today we have had a chance to go over subjective complaints, physical examination findings and treatments including the natural course history without intervention and various interventional options. The patients imaging demonstrates Hyperintense signal on STIR and T2 of the L5 and S1-2 vertebral body with hyperintense disc signal as well as tracking phelgmon into the the eroding S1 and L5 vertebral bodies. There is severe collapse of the disc space at L4-5 and L5-S1 due to these changes. There are extensive other chnages noted in the spine, no large epidural colleciton at this time, but b/l foraminal stenosis is present as well as central stenosis due to the collapse and pyogenic burden noted in this region. No fractures noted. On physical exam, Chay demonstrates weakness in his LLE with foot drop that is new in onset and worsening as well as weakness in b/l LE and severe low back pain that prevents him to standing or doing much of anything currently. He states no bowel or bladder issues. 4/5 in LE b/l with DF on the left being 3/5. The remainder show a degree of weakness, but no focal deficits. Back shows TTP midline as well as paraspinal. He is otherwise NV intact. There are no open wounds. I have explained to the patient that as their condition progresses it will cause further neurological deficits and eventual paralysis. Based on the patients imaging, physical exam, and the rapid progression and disabling nature of their symptoms, at this time I recommend surgery in the form or a: L5 and S1 bipopsy. I discussed the risk and benefits of this procedure at length with Chay Novaklett The patient son and at bedside agreed to considered pursuing the procedure abovementioned. Prior to surgery, she should follow up with her PCP (Cardio, ID, IM etc) for clearance. Questions were invited and answered, and the patient wishes to proceed as outlined below. Currently, I am recommendin. L5 and S1 vertebral body bipopsy 2. Follow up with PCP for surgical clearance 3. Review of surgical risks and benefits as well as an educational packet on the proposed surgical procedure. Risks: All surgical procedures come with inherent risks, including those related to pos itioning, anesthesia, intraoperative findings, and postoperative complications. It is important to understand that surgery does not come with any guarantee of a successful outcome as complications and adverse events are always possible. The patient was given a handout in office today discussing the surgical procedure and risks associated with the intervention, both of which were discussed with the patient. These risks include but are not limited to the following: * Experiencing same, different or even worse symptoms in back, neck, arms, or legs compared to before surgery. * Requiring further surgery or other forms of treatment presently or at some time in the future at same or other levels of the intended spine surgery. * On an extreme but fortunately relatively rare basis severe complication such as blindness, stroke, heart attack, temporary and/or permanent nerve injury, paralysis, coma, or may occur, sometimes without known explanation. * Surgical complications may include but are not limited to risk of infection, fluid accumulation in the surgical dissection site, including a seroma or hematoma, that requires additional surgery, wound drainage, bleed ing, new numbness or weakness, vision changes/loss, spinal fluid leakage, non- healing and/or infected incision, headaches, difficulty or inability to swallow, hoarseness, hemopneumothorax, pneumothorax, impotence, retrograde ejaculation, vaginal dryness; injury to nerves, spinal cord, blood vessels, lymphatics or other vital organs (i.e., bowel injury, injury to the great vessels); heterotopic bone formation; complications related to the hardware such as screws, rods, cages including misplaced hardware, device failure, instrumentation at the wrong spine level, hardware fracture/breakage, or jensen rdware loosening; vertebral failure of the spinal column above or below the newly placed hardware; retained surgical instrumentations or devices and the need for further surgery. * Medical risks of the planned spine surgery include but are not limited to generalized Infections to the whole body or local areas outside of the surgical site (sepsis), heart attack, bleeding, anaphylaxis, meningitis, seizure, epilepsy, hearing loss, burn prieto, laceration of the head or other areas of the body, bruising, hypersensitivity of the skin, bladder over distension; allergic reaction; shoulder injury related to positioning; fat, blood and air clots to other areas of the body like heart, lungs, brain; failure of internal organs such as lungs, kidneys, liver and excessive bleeding. If blood transfusions are necessary, note that transfusions may cause intolerance reactions such as anaphylaxis or other complex reactions. * Despite best efforts, the results of spine surgery might not heal in terms of bone, soft tissues such as skin, fascia, ligaments, and joints. Additionally, in order to achieve best possible results, spine surgery may be carried out beyond the initially planned levels and involve decompression, fusion including insertion of hardware at levels other than the original intended area of surgical interest change some portions of the procedure in order to ensure the best possible outcomes. * With spine surgery and spinal fusion, there are different off label uses of instrumentation (devices, implants and hardware) as well as biological substances (bone morphogenic proteins, demineralized bone matrix) as well as using extra bone from allograft sources (i.e. cadaver bone) or autograft (iliac crest bone, ribs, or the spine itself). The patient has been given information about these practices and their inherent risks and benefits. The patient has had a chance to review all the listed information, has been given print outs detailing this information, and has had all his/her questions answered to their satisfaction. It was my pleasure to have seen and examined Chay Luque. In our visit today we have had a chance to go over my understanding of our patient's current condition, the natural course history without intervention and various interventional options. Questions were invited and answered, and the patient wishes to proceed as outlined above. I have seen and examined the patient for 25 minutes and we have spent more than 50% of the time in repeat and detailed counseling about the patient's condition, its natural course history with out and as much as can be predicted with surgery and re-review of various surgical treatment options. In conclusion, Chay Luque and and son requested we proceed with the above suggested surgery and are willing to accept risks and limitations of the suggested surgery as nature of the disease process and our best attempts at treatment for the condition. Thank you again for allowing us to be part of your patient's care. Please don't hesitate to contact me if you have any further questions. Signed and authenticated by: Roberto [facility] [address] [place] [id number] Description of Procedure: The patient was seen and examined in the preoperative area. All preoperative protocols were followed. Informed consent was obtained risks and benefits of the procedure were discussed at length. Risks including bleeding infection damage to the surrounding tissue and risk of reoperation were discussed with the patient. Risk of anesthesia up to and including was a discussed with the patient. These are outlined in the risk review. They were willing to accept these risks and all of the risks of surgery. The patient was given a weight- based dose of antibiotics in the form of vancomycin from floor. The patient was seen and evaluated by the anesthesia team who deemed them fit for surgery. The site was marked, the patient was willing to proceed with the procedure. The patient was transferred to the operative suite by the Department of anesthesia. They were then drifted off to sleep by the department anesthesia and GETA was performed. The patient tolerated this well. [Hernandez catheter was placed by nursing staff, atraumatically]. Once confirmation of lines and ventilation the patient was transferred to a [prone Bereket table very carefully]. All bony prominences including wrists, elbows, axilla, chest, hips, and thighs, and feet were padded very well. Special attention was paid to the genitalia and these were padded accordingly. SCDs were placed on bilateral lower extremities and were connected. Arms were well padded and placed [on arm boards up and out in the 90/90 position]. Once in position, again we confirmed good ventilation capabilities and that lines were running appropriately. The patient's lumbosacral spine was then exposed. 1010s were placed outlining the incision site. Standard alcohol was used to clean the incision site and allowed to dry. C-arm was used to biomark the patient and confirm level for incision which was marked with a skin marker. Operative briefing was performed with all teams and everyone in agreement to proceed. The patient was then prepped and draped in a normal sterile fashion. Timeout was then performed and all parties were in agreement with the procedure to be performed. Biplanar fluoroscopy was used to identify the L5-S1 level. 18-gauge spinal needle was used to kitty this level on AP and lateral fluoroscopy. Skin amrita was then made and Jamshidi introduced into the sacral vertebral body this was passed into the area of the midportion of the body anteriorly and superiorly just underneath the endplate where there is a large void. Biopsy was taken from this region. There is a lot of hard bone and sclerotic bone around the area however there was a soft nidus refills. Attention was then drawn to the L5 vertebral body for higher yield biopsy Jamshidi was introduced through the pedicle into this region into the [facility] under biplanar fluoroscopy. Once this was accomplished a biopsy was taken of this area and sent as well. There is no gross purulence that can be seen but there is phlegmon which was collected within the biopsies at each level. Once this was accomplished if she was removed the wounds were cleaned and closed with simple stitch followed by glue and dressed with a sterile Band-Aid. The patient was transferred back to their hospital bed atraumatically. Patient was then awakened and extubated by the department of anesthesia having tolerated the procedure very well with no complications. They were transferred to the postoperative care unit in stable condition.
--- NOTE | 2023-06-18 18:05 | P.PN ---
Subjective Progress Note Date: 06/18/23 Hospital Course: 68-year-old male with history of hypertension, anxiety presenting from outpati ent surgery office with concern for persistent low back pain of left leg pain for few months. Had outpatient MRI concerning for extensive osteomyelitis with discitis involving L5-S1. MRI shows L5-S1 discitis with L5-S1 osteomyelitis, no obvious epidural collection, epidural thickening redemonstrated. Paraspinal inflammatory changes noted. 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 No acute events overnight. Pertinent positives and negatives as discussed above, a complete review of systems was performed and all other systems are negative. Vitals Signs Reviewed. General: Nontoxic, no distress, appears at stated age Derm: Warm, dry Head: Atraumatic, normocephalic, symmetric Eyes: EOMI, no lid lag, anicteric sclera Mouth: No lip lesion, mucus membranes moist Cardiovascular: S1S2 reg, no murmur Lungs: CTA bilateral, no rhonchi, no rales, no accessory muscle use Abdominal: Soft, nontender to palpation, no guarding, no appreciable organomegaly Ext: 3/5 strength in left lower extremity, 4/5 strength in right lower extremity, 5/5 strength in bilateral upper extremities Neuro: CN II-XI grossly intact, no focal neuro deficits Psych: Alert, oriented, appropriate affect Data Reviewed Today: Pertinent Labs: WBC 9.48, hemoglobin 12.1, creatinine 0.74. Imaging: Cervical and thoracic spine MRI shows acute discitis/osteomyelitis involving the inferior T7 vertebra through the superior T9 vertebra. Assessment and Plan: Active: Discitis/osteomyelitis of thoracic and lumbosacral spine - Orthopedic spine surgery following, continue IV antibiotics - On IV vancomycin, monitor renal function -ID following, patient received a PICC line - Pain control with IV morphine as needed, Toradol 15 IV every 6 hours, oral Bivins as needed, monitor for sedation - Also on gabapentin 300 mg 3 times daily - Blood cultures pending Chronic: Hypertension DVT ppx: Subcu heparin Code status: Full code Anticipated discharge place: Pending clinical course Anticipated discharge time: Pending clinical course Objective - Vital Signs Vital signs: Vital Signs Temp 98.4 F 06/18/23 14:19 Pulse 68 06/18/23 14:19 Resp 18 06/18/23 14:19 BP 190/91 06/18/23 14:19 Pulse Ox 98 06/18/23 14:19 FiO2 Intake & Output 06/17/23 06/18/23 06/18/23 18:59 06:59 18:59 Intake Total 755 200 Output Total 3 Balance 752 200 Intake: IV 200 Oral 755 Output: Urine 3 Other: Voiding Method Toilet # Voids 1 - Labs CBC & Chem 7: 06/18/23 06:10 06/18/23 06:10 Labs: Abnormal Lab Results - Last 24 Hours (Table) 06/18/23 Range/Units 06:10 RBC 3.81 L (4.40-5.60) X 10*6/uL Hgb 12.1 L (13.0-17.0) g/dL Hct 37.8 L (39.6-50.0) % MCV 99.2 H (80.0-97.0) FL RDW 15.3 H (11.5-14.5) % MPV 9.2 L (9.5-12.2) FL Monocytes # 1.14 H (0.20-1.00) X 10*3/uL Eosinophils # 0.38 H (0.04-0.35) X 10*3/uL Microbiology - Last 24 Hours (Table) 06/16/23 16:09 Blood Culture - Preliminary Blood 06/16/23 15:50 Blood Culture - Preliminary Blood
[2023-06-18] MEDS: LISINOPRIL-HCTZ 10-12.5 MG 1 EACH TAB PO SCH (18:33)
--- NOTE | 2023-06-18 18:44 | IR ---
EXAMINATION TYPE: IR cvc insert >=5 years DATE OF EXAM: 06/18/2023 FLUOROSCOPY: Fluoroscopy time not provided. Images during placement of a left-sided PICC line for ant ibiotic administration. 7 images are provided. Radiation dose not provided.
[2023-06-19 05:27] LABS: African American GFR (CKD) >90 (>60 ml/min/1.73 sqM); Anion Gap 2 mmol/L; Blood Urea Nitrogen 26 mg/dL (9-20); Calcium 8.5 mg/dL (8.4-10.2); Carbon Dioxide 31 mmol/L (22-30); Chloride 102 mmol/L (98-107); Glucose 114 mg/dL (74-99); Non-African American GFR(CKD) 85 (>60 ml/min/1.73 sqM); Potassium 4.6 mmol/L (3.5-5.1); Sodium 135 mmol/L (137-145)
[2023-06-19] MEDS: VANCOMYCIN TROUGH DUE 1 EACH MISC MISCELLANE ONE (05:57)
--- NOTE | 2023-06-19 07:57 | P.PN ---
Subjective Progress Note Date: 06/18/23 Principal diagnosis: Reason for follow-up is abnormal MRI with a question of discitis/osteomyelitis Patient is a 68-year-old male with no significant past medical history however the patient did have a fall around Thanksgiving since then the patient has been dealing with the lower back pain with recent outpatient MRI suspicious for discitis/osteomyelitis for which the patient has been admitted to the hospital. On today's evaluation that is 06/18/2023, the patient continues to be afebrile, the patient is on room air and breathing comfortably, the Pt denies having any chest pain or cough, the patient denies having any abdominal pain no vomiting or any diarrhea patient still complaining of lower back pain but denies any worsening and no weakness to the lower extremity. Patient white count of 9.48 creatinine 0.74 blood culture so far negative Objective - Vital Signs Vital signs: Vital Signs Temp 97.2 F L 06/18/23 16:35 Pulse 77 06/18/23 17:05 Resp 16 06/18/23 17:05 BP 178/77 06/18/23 17:05 Pulse Ox 100 06/18/23 17:05 FiO2 Intake & Output 06/18/23 06/18/23 06/19/23 06:59 18:59 06:59 Intake Total 1550 Output Total 5 Balance 1545 Intake: IV 700 Intake, IV Titration 250 Amount Vancomycin 1,250 mg In 250 Sodium Chloride 0.9% 250 ml @ 125 mls/hr IVPB Q12H [facility] Rx#:[id number] Oral 600 Output: Estimated Blood Loss 5 Other: Voiding Method Toilet # Voids 1 - Exam GENERAL DESCRIPTION: An elderly male lying in bed in no distress RESPIRATORY SYSTEM: Unlabored breathing , decreased breath sounds at bases HEART: S1 S2 regular rate and rhythm , ABDOMEN: Soft , no tenderness EXTREMITIES: No edema feet - Labs CBC & Chem 7: 06/18/23 06:10 06/19/23 04:03 Labs: Abnormal Lab Results - Last 24 Hours (Table) 06/18/23 Range/Units 06:10 RBC 3.81 L (4.40-5.60) X 10*6/uL Hgb 12.1 L (13.0-17.0) g/dL Hct 37.8 L (39.6-50.0) % MCV 99.2 H (80.0-97.0) FL RDW 15.3 H (11.5-14.5) % MPV 9.2 L (9.5-12.2) FL Monocytes # 1.14 H (0.20-1.00) X 10*3/uL Eosinophils # 0.38 H (0.04-0.35) X 10*3/uL Microbiology - Last 24 Hours (Table) 06/16/23 16:09 Blood Culture - Preliminary Blood 06/16/23 15:50 Blood Culture - Preliminary Blood Assessment and Plan (1) Discitis Current Visit: Yes Status: Acute Code(s): M46.40 - DISCITIS, UNSPECIFIED, SITE UNSPECIFIED SNOMED Code(s): 4816359 (2) Osteomyelitis of lumbar spine Current Visit: Yes Status: Acute Code(s): M46.26 - OSTEOMYELITIS OF VERTEBRA, LUMBAR REGION SNOMED Code(s): 392081720 Plan: 1patient presented to hospital with chronic pain to the lower back area and this patient has been diagnosed with osteomyelitis discitis involving L5-S1 area patient did have a history of trauma but no history of any fever or any chills and did have normal sed rate 2-patient did have multiple antibiotic allergy to penicillin and doxycycline 3-patient is status post biopsy of the affected area await pathology covered with empiric vancomycin and monitor clinical course closely Family at the bedside questions answered Dictation was produced using [employer] dictation software. please excuse any grammatical, word or spelling errors. Time with Patient: Less than 30
[2023-06-19 09:28] LABS: Basophils # (A) 0.04 X 10*3/uL (0.00-0.10); Basophils % (A) 0.5 %; Eosinophils # (A) 0 X 10*3/uL (0.04-0.35); Eosinophils % (A) 0 %; HCT 28.7 % (39.6-50.0); HGB 9.3 g/dL (13.0-17.0); Lymphocytes # (A) 1.63 X 10*3/uL (0.90-5.00); Lymphocytes % (A) 19.1 %; MCH 31.5 pg (27.0-32.0); MCHC 32.4 g/dL (32.0-37.0); MCV 97.3 FL (80.0-97.0); Mean Platelet Volume 9.4 FL (9.5-12.2); Monocytes # (A) 1.25 X 10*3/uL (0.20-1.00); Monocytes % (A) 14.7 %; NRBC Per 100 WBC 0 X 10*3/uL (0.00-0.01); Neutrophils # (A) 5.58 X 10*3/uL (1.80-7.70); Neutrophils % (A) 65.5 %; Platelet Count 302 X 10*3/uL (140-440); RBC 2.95 X 10*6/uL (4.40-5.60); WBC 8.52 X 10*3/uL (4.50-10.00)
[2023-06-19] MEDS ORDERED: SENNOSIDES 8.6 MG TAB PO PRN (11:50)
--- NOTE | 2023-06-19 11:52 | P.PN ---
Subjective Progress Note Date: 06/19/23 Principal diagnosis: 1. L5-S1 OSTEMYELITIS DISCITIS 2. 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 LE WEAKNESS 4. LOW BACK PAIN Patient was seen at bedside this morning lying in the right lateral recumbent position. Patient says he has already been up this morning walk around the room in the hallway with his brace on. Patient is wondering when his results from the biopsies of the spine will come back. Patient says he has urinated since surgery yesterday. Patient says he has not had a bowel movement yet. Patient denies any other issues at this time. Patient denies chest pain, fever, nausea, vomiting, change in vision, loss of bowel/bladder control. Objective - Vital Signs Vital signs: Vital Signs Temp 98.3 F 06/19/23 07:44 Pulse 50 L 06/19/23 07:44 Resp 18 06/19/23 07:44 BP 175/71 06/19/23 07:44 Pulse Ox 99 06/19/23 07:44 FiO2 Intake & Output 06/18/23 06/19/23 06/19/23 18:59 06:59 18:59 Intake Total 1550 900 Output Total 5 Balance 1545 900 Intake: IV 700 Intake, IV Titration 250 Amount Vancomycin 1,250 mg In 250 Sodium Chloride 0.9% 250 ml @ 125 mls/hr IVPB Q12H [facility] Rx#:[id number] Oral 600 900 Output: Estimated Blood Loss 5 Other: # Voids 3 - Exam Incision appear to be clean, dry, intact. Negative for any active drainage. Sensation is equal, symmetric, bilateral intact throughout the upper and lower extremities. There is some generalized tenderness to patient diffusely throughout the low back. Patient does have full range of motion throughout bilateral upper extremities on exam. Full range of motion throughout right lower extremity on exam. Limited range of motion in the left hip in flexion e xtension and left knee in flexion extension secondary to referred pain to the back and stiffness. 5/5 in all major motor groups in bilateral upper extremities. 4+/5 in all major motor groups in right lower extremity. 4-/5 in resisted left hip flexion extension and left knee flexion extension. Left ankle 3+/5 in resisted dorsi/plantarflexion. Radial pulse intact, 2+ bilaterally. Cap refill under 3 seconds in digits of upper extremities. DP pulses palpable bilaterally. Negative Homans bilaterally. Negative clonus bilaterally. Negative Albina bilaterally. - Labs CBC & Chem 7: 06/19/23 04:03 06/19/23 04:03 Labs: Abnormal Lab Results - Last 24 Hours (Table) 06/19/23 06/19/23 Range/Units 04:03 04:03 RBC 2.95 L (4.40-5.60) X 10*6/uL Hgb 9.3 L (13.0-17.0) g/dL Hct 28.7 L (39.6-50.0) % MCV 97.3 H (80.0-97.0) FL RDW 15.0 H (11.5-14.5) % MPV 9.4 L (9.5-12.2) FL Monocytes # 1.25 H (0.20-1.00) X 10*3/uL Eosinophils # 0 L (0.04-0.35) X 10*3/uL Sodium 135 L (137-145) mmol/L Carbon Dioxide 31 H (22-30) mmol/L BUN 26 H (9-20) mg/dL Glucose 114 H (74-99) mg/dL Microbiology - Last 24 Hours (Table) 06/16/23 16:09 Blood Culture - Preliminary Blood 06/16/23 15:50 Blood Culture - Preliminary Blood Assessment and Plan Assessment: 1. L5-S1 OSTEMYELITIS DISCITIS 2. 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 LE WEAKNESS 4. LOW BACK PAIN -Postop day 1 status post L5 and S1 vertebral body biopsies Plan: 1. 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 Patient stable at bedside this morning. Weight-bear as tolerated with walker and assistance as needed. And brace on while up and about. Pain medication as needed. Surgery has been scheduled for 06/22/2023L4-S1 decompression and fusion. Patient to be n.p.o. at midnight Wednesday night. We will continue to follow patient during his stay in hospital. 2. Appreciate medical management 3. Pain management -Toradol; Omar; gabapentin 4. DVT prophylaxis -heparin 5. GI prophylaxis -senna 6. PT/OT -weightbearing as tolerated with walker and a brace on while up and about 7. Encourage incentive spirometer use Time with Patient: Less than 30
--- NOTE | 2023-06-19 13:26 | P.PN ---
Subjective Progress Note Date: 06/19/23 Hospital Course: 68-year-old male with history of hypertension, anxiety presenting from outpati ent surgery office with concern for persistent low back pain of left leg pain for few months. Had outpatient MRI concerning for extensive osteomyelitis with discitis involving L5-S1. MRI shows L5-S1 discitis with L5-S1 osteomyelitis, no obvious epidural collection, epidural thickening redemonstrated. Paraspinal inflammatory changes noted. 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 Cervical and thoracic spine MRI shows acute discitis/osteomyelitis involving the inferior T7 vertebra through the superior T9 vertebra. Status post lumbar biopsy. Subjective: Patient seen and examined at bedside. No acute events overnight. Having back pain. Pertinent positives and negatives as discussed above, a complete review of syste ms was performed and all other systems are negative. Vitals Signs Reviewed. General: Nontoxic, no distress, appears at stated age Derm: Warm, dry Head: Atraumatic, normocephalic, symmetric Eyes: EOMI, no lid lag, anicteric sclera Mouth: No lip lesion, mucus membranes moist Cardiovascular: S1S2 reg, no murmur Lungs: CTA bilateral, no rhonchi, no rales, no accessory muscle use Abdominal: Soft, nontender to palpation, no guarding, no appreciable organomegaly Ext: 3/5 strength in left lower extremity, 4/5 strength in right lower extremity, 5/5 strength in bilateral upper extremities Neuro: CN II-XI grossly intact, no focal neuro deficits Psych: Alert, oriented, appropriate affect Data Reviewed Today: Pertinent Labs: WBC 8.53, hemoglobin 9.3, sodium 135, creatinine 0.90 Imaging: No new imaging Assessment and Plan: Active: Discitis/osteomyelitis of thoracic and lumbosacral spine - Orthopedic spine surgery note reviewed, scheduled for decompression and fusion on Wednesday - On IV vancomycin, monitor renal function -ID following, patient received a PICC line - Pain control with IV morphine as needed, Toradol 15 IV every 6 hours, oral [place] as needed, monitor for sedation - Also on gabapentin 300 mg 3 times daily - Blood cultures no growth to date Hypertension Started on lisinopril and hydrochlorothiazide 10-12 0.5 DVT ppx: Subcu heparin Code status: Full code Anticipated discharge place: Pending clinical course Anticipated discharge time: Pending clinical course Objective - Vital Signs Vital signs: Vital Signs Temp 98.3 F 06/19/23 07:44 Pulse 50 L 06/19/23 07:44 Resp 18 06/19/23 07:44 BP 175/71 06/19/23 07:44 Pulse Ox 99 06/19/23 07:44 FiO2 Intake & Output 06/18/23 06/19/23 06/19/23 18:59 06:59 18:59 Intake Total 1550 900 Output Total 5 Balance 1545 900 Intake: IV 700 Intake, IV Titration 250 Amount Vancomycin 1,250 mg In 250 Sodium Chloride 0.9% 250 ml @ 125 mls/hr IVPB Q12H [facility] Rx#:[id number] Oral 600 900 Output: Estimated Blood Loss 5 Other: # Voids 3 - Labs CBC & Chem 7: 06/19/23 04:03 06/19/23 04:03 Labs: Abnormal Lab Results - Last 24 Hours (Table) 06/19/23 06/19/23 Range/Units 04:03 04:03 RBC 2.95 L (4.40-5.60) X 10*6/uL Hgb 9.3 L (13.0-17.0) g/dL Hct 28.7 L (39.6-50.0) % MCV 97.3 H (80.0-97.0) FL RDW 15.0 H (11.5-14.5) % MPV 9.4 L (9.5-12.2) FL Monocytes # 1.25 H (0.20-1.00) X 10*3/uL Eosinophils # 0 L (0.04-0.35) X 10*3/uL Sodium 135 L (137-145) mmol/L Carbon Dioxide 31 H (22-30) mmol/L BUN 26 H (9-20) mg/dL Glucose 114 H (74-99) mg/dL Microbiology - Last 24 Hours (Table) 06/16/23 16:09 Blood Culture - Preliminary Blood 06/16/23 15:50 Blood Culture - Preliminary Blood
[2023-06-20 09:53] LABS: Basophils # (A) 0.08 X 10*3/uL (0.00-0.10); Basophils % (A) 0.8 %; Eosinophils # (A) 0.26 X 10*3/uL (0.04-0.35); Eosinophils % (A) 2.7 %; HGB 9.5 g/dL (13.0-17.0); Lymphocytes # (A) 2.49 X 10*3/uL (0.90-5.00); MCHC 31.7 g/dL (32.0-37.0); Mean Platelet Volume 9.6 FL (9.5-12.2); Monocytes # (A) 0.85 X 10*3/uL (0.20-1.00); Monocytes % (A) 8.9 %; NRBC Per 100 WBC 0 X 10*3/uL (0.00-0.01); Neutrophils # (A) 5.85 X 10*3/uL (1.80-7.70); Neutrophils % (A) 61.3 %; Platelet Count 291 X 10*3/uL (140-440); RBC 2.97 X 10*6/uL (4.40-5.60); RDW 15.4 % (11.5-14.5); WBC 9.56 X 10*3/uL (4.50-10.00)
[2023-06-20 09:56] LABS: BUN/Creat Ratio 21.12 Ratio (12.00-20.00); Blood Urea Nitrogen 16.9 mg/dL (9.0-27.0); Calcium 8.7 mg/dL (8.7-10.3); Carbon Dioxide 26.5 mmol/L (21.6-31.8); Chloride 104 mmol/L (96-109); Glucose 87 mg/dL (70-110); Potassium 4.1 mmol/L (3.5-5.5); Sodium 141 mmol/L (135-145)
--- NOTE | 2023-06-20 10:54 | FL ---
EXAMINATION TYPE: FL guidance operating room Intraoperative/procedural fluoroscopic services were pro vided. Total fluoroscopy time is 1 minute 54 seconds with a total of 8 submitted images to PACS. Plea se see the operative/procedural note for further details. DAP: 13.521 Gycm2
--- NOTE | 2023-06-20 13:56 | P.PN ---
Subjective Progress Note Date: 06/20/23 Principal diagnosis: 1. L5-S1 OSTEMYELITIS DISCITIS 2. 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 LE WEAKNESS 4. LOW BACK PAIN Patient was seen at bedside this morning lying in the right lateral recumbent position. Patient says he has already been up this morning walk around the room in the hallway with his brace on. Patient is wondering when his results from the biopsies of the spine will come back. Patient says he has urinated since surgery. Patient says he has not had a bowel movement yet. Patient denies any other issues at this time. Patient denies chest pain, fever, nausea, vomiting, change in vision, loss of bowel/bladder control. Objective - Vital Signs Vital signs: Vital Signs Temp 97.8 F 06/20/23 07:38 Pulse 64 06/20/23 07:38 Resp 18 06/20/23 07:38 BP 151/78 06/20/23 07:38 Pulse Ox 93 L 06/20/23 07:38 FiO2 Intake & Output 06/19/23 06/20/23 06/20/23 18:59 06:59 18:59 Intake Total 900 240 Balance 900 240 Intake: Oral 900 240 Other: Voiding Method Toilet Toilet Toilet # Voids 4 3 - Exam Incision appear to be clean, dry, intact. Negative for any active drainage. Sensation is equal, symmetric, bilateral intact throughout the upper and lower extremities. There is some generalized tenderness to patient diffusely throughout the low back. Patient does have full range of motion throughout bilateral upper extremities on exam. Full range of motion throughout right lower extremity on exam. Limited range of motion in the left hip in flexion extension and left knee in flexion extension secondary to referred pain to the back and stiffness. 5/5 in all major motor groups in bilateral upper extremities. 4+/5 in all major motor groups in right lower extremity. 4-/5 in resisted left hip flexion extension and left knee flexion extension. Left ankle 3+/5 in resisted dorsi/plantarflexion. Radial pulse intact, 2+ bilaterally. Cap refill under 3 seconds in digits of upper extremities. DP pulses palpable bilaterally. Negative Homans bilaterally. Negative clonus bilaterally. Negative Albina bilaterally. - Labs CBC & Chem 7: 06/20/23 05:58 06/20/23 05:58 Labs: Abnormal Lab Results - Last 24 Hours (Table) 06/20/23 06/20/23 Range/Units 05:58 05:58 RBC 2.97 L (4.40-5.60) X 10*6/uL Hgb 9.5 L (13.0-17.0) g/dL Hct 30.0 L (39.6-50.0) % MCV 101.0 H (80.0-97.0) FL MCHC 31.7 L (32.0-37.0) g/dL RDW 15.4 H (11.5-14.5) % BUN/Creatinine Ratio 21.12 H (12.00-20.00) Ratio Microbiology - Last 24 Hours (Table) 06/18/23 16:20 Gram Stain - Preliminary Back Wound Culture - Preliminary 06/18/23 16:20 Gram Stain - Preliminary Back Wound Culture - Preliminary 06/16/23 16:09 Blood Culture - Preliminary Blood 06/16/23 15:50 Blood Culture - Preliminary Blood Assessment and Plan Assessment: 1. L5-S1 OSTEMYELITIS DISCITIS 2. 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 LE WEAKNESS 4. LOW BACK PAIN -Postop day 1 status post L5 and S1 vertebral body biopsies Plan: 1. 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 Patient stable at bedside this morning. Weight-be ar as tolerated with walker and assistance as needed. And brace on while up and about. Pain medication as needed. Surgery has been scheduled for 06/22/2023L4-S1 decompression and fusion. Patient to be n.p.o. at midnight Wednesday night. We will continue to follow patient during his stay in hospital. 2. Appreciate medical management 3. Pain management -Toradol; [place]; gabapentin 4. DVT prophylaxis -heparin 5. GI prophylaxis -senna 6. PT/OT -weightbearing as tolerated with walker and a brace on while up and about 7. Encourage incentive spirometer use Time with Patient: Less than 30
--- NOTE | 2023-06-20 14:17 | P.PN ---
Subjective Progress Note Date: 06/20/23 Hospital Course: 68-year-old male with history of hypertension, anxiety presenting from outpati ent surgery office with concern for persistent low back pain of left leg pain for few months. Had outpatient MRI concerning for extensive osteomyelitis with discitis involving L5-S1. MRI shows L5-S1 discitis with L5-S1 osteomyelitis, no obvious epidural collection, epidural thickening redemonstrated. Paraspinal inflammatory changes noted. 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 Cervical and thoracic spine MRI shows acute discitis/osteomyelitis involving the inferior T7 vertebra through the superior T9 vertebra. Status post lumbar biopsy. Cultures pending. Subjective: Patient seen and examined at bedside. No acute events overnight. Having back pain. Pertinent positives and negatives as discussed above, a complete review of systems was performed and all other systems are negative. Vitals Signs Reviewed. General: Nontoxic, no distress, appears at stated age Derm: Warm, dry Head: Atraumatic, normocephalic, symmetric Eyes: EOMI, no lid lag, anicteric sclera Mouth: No lip lesion, mucus membranes moist Cardiovascular: S1S2 reg, no murmur Lungs: CTA bilateral, no rhonchi, no rales, no accessory muscle use Abdominal: Soft, nontender to palpation, no guarding, no appreciable organomegaly Ext: 3/5 strength in left lower extremity, 4/5 strength in right lower extremity, 5/5 strength in bilateral upper extremities Neuro: CN II-XI grossly intact, no focal neuro deficits Psych: Alert, oriented, appropriate affect Data Reviewed Today: Pertinent Labs: WBC 9.56, hemoglobin 9.5, sodium 141, creatinine 0.8 Imaging: No new imaging Assessment and Plan: Active: Discitis/osteomyelitis of thoracic and lumbosacral spine - Orthopedic spine surgery note reviewed, scheduled for decompression and fusion on Wednesday - On IV vancomycin, monitor renal function -ID following, patient received a PICC line - Pain control with IV morphine as needed, Toradol 15 IV every 6 hours, oral [place] as needed, monitor for sedation - Also on gabapentin 300 mg 3 times daily - Blood cultures no growth to date Hypertension Continue on lisinopril and hydrochlorothiazide 10-12 0.5 Continue metoprolol succinate 25 daily DVT ppx: Subcu heparin Code status: Full code Anticipated discharge place: Pending clinical course Anticipated discharge time: Pending clinical course Objective - Vital Signs Vital signs: Vital Signs Temp 97.8 F 06/20/23 07:38 Pulse 64 06/20/23 07:38 Resp 18 06/20/23 07:38 BP 151/78 06/20/23 07:38 Pulse Ox 93 L 06/20/23 07:38 FiO2 Intake & Output 06/19/23 06/20/23 06/20/23 18:59 06:59 18:59 Intake Total 900 240 Balance 900 240 Intake: Oral 900 240 Other: Voiding Method Toilet Toilet Toilet # Voids 4 3 - Labs CBC & Chem 7: 06/20/23 05:58 06/20/23 05:58 Labs: Abnormal Lab Results - Last 24 Hours (Table) 06/20/23 06/20/23 Range/Units 05:58 05:58 RBC 2.97 L (4.40-5.60) X 10*6/uL Hgb 9.5 L (13.0-17.0) g/dL Hct 30.0 L (39.6-50.0) % MCV 101.0 H (80.0-97.0) FL MCHC 31.7 L (32.0-37.0) g/dL RDW 15.4 H (11.5-14.5) % BUN/Creatinine Ratio 21.12 H (12.00-20.00) Ratio Microbiology - Last 24 Hours (Table) 06/18/23 16:20 Gram Stain - Preliminary Back Wound Culture - Preliminary 06/18/23 16:20 Gram Stain - Preliminary Back Wound Culture - Preliminary 06/16/23 16:09 Blood Culture - Preliminary Blood 06/16/23 15:50 Blood Culture - Preliminary Blood
--- NOTE | 2023-06-20 15:51 | P.PN ---
Subjective Progress Note Date: 06/19/23 Principal diagnosis: Reason for follow-up is abnormal MRI with a question of discitis/osteomyelitis Patient is a 68-year-old male with no significant past medical history however the patient did have a fall around Thanksgiving since then the patient has been dealing with the lower back pain with recent outpatient MRI suspicious for discitis/osteomyelitis for which the patient has been admitted to the hospital. On today's evaluation that is 06/19/2023, Patient is afebrile patient is currently on room air and denies having any shortness of breath, the patient denies any chest pain or cough, the patient denies any nausea vomiting did not have any abdominal pain and no diarrhea, still complaining of pain to the low back area but no worsening Patient did have white count of 8.5, creatinine 0.92 Objective - Vital Signs Vital signs: Vital Signs Temp 97.7 F 06/19/23 14:00 Pulse 55 L 06/19/23 14:00 Resp 18 06/19/23 14:00 BP 159/77 06/19/23 14:00 Pulse Ox 99 06/19/23 14:00 FiO2 Intake & Output 06/18/23 06/19/23 06/19/23 18:59 06:59 18:59 Intake Total 1550 900 Output Total 5 Balance 1545 900 Intake: IV 700 Intake, IV Titration 250 Amount Vancomycin 1,250 mg In 250 Sodium Chloride 0.9% 250 ml @ 125 mls/hr IVPB Q12H [facility] Rx#:[id number] Oral 600 900 Output: Estimated Blood Loss 5 Other: Voiding Method Toilet # Voids 3 - Exam GENERAL DESCRIPTION: An elderly male lying in bed in no distress RESPIRATORY SYSTEM: Unlabored breathing , decreased breath sounds at bases HEART: S1 S2 regular rate and rhythm , ABDOMEN: Soft , no tenderness EXTREMITIES: No edema feet - Labs CBC & Chem 7: 06/20/23 05:58 06/20/23 05:58 Labs: Abnormal Lab Results - Last 24 Hours (Table) 06/19/23 06/19/23 Range/Units 04:03 04:03 RBC 2.95 L (4.40-5.60) X 10*6/uL Hgb 9.3 L (13.0-17.0) g/dL Hct 28.7 L (39.6-50.0) % MCV 97.3 H (80.0-97.0) FL RDW 15.0 H (11.5-14.5) % MPV 9.4 L (9.5-12.2) FL Monocytes # 1.25 H (0.20-1.00) X 10*3/uL Eosinophils # 0 L (0.04-0.35) X 10*3/uL Sodium 135 L (137-145) mmol/L Carbon Dioxide 31 H (22-30) mmol/L BUN 26 H (9-20) mg/dL Glucose 114 H (74-99) mg/dL Microbiology - Last 24 Hours (Table) 06/16/23 16:09 Blood Culture - Preliminary Blood 06/16/23 15:50 Blood Culture - Preliminary Blood Assessment and Plan (1) Discitis Current Visit: Yes Status: Acute Code(s): M46.40 - DISCITIS, UNSPECIFIED, SITE UNSPECIFIED SNOMED Code(s): 1809695 (2) Osteomyelitis of lumbar spine Current Visit: Yes Status: Acute Code(s): M46.26 - OSTEOMYELITIS OF VERTEBRA, LUMBAR REGION SNOMED Code(s): 333018218 Plan: 1patient presented to hospital with chronic pain to the lower back area and this patient has been diagnosed with osteomyelitis discitis involving L5-S1 area patient did have a history of trauma but no history of any fever or any chills and did have normal sed rate 2-patient did have multiple antibiotic allergy to penicillin and doxycycline 3-patient is status post biopsy of the affected area await pathology covered, cultures currently pending patient is covered with the vancomycin Dictation was produced using [employer] dictation software. please excuse any grammatical, word or spelling errors. Time with Patient: Less than 30
--- NOTE | 2023-06-20 15:52 | P.PN ---
Subjective Progress Note Date: 06/20/23 Principal diagnosis: Reason for follow-up is abnormal MRI with a question of discitis/osteomyelitis Patient is a 68-year-old male with no significant past medical history however the patient did have a fall around Thanksgiving since then the patient has been dealing with the lower back pain with recent outpatient MRI suspicious for discitis/osteomyelitis for which the patient has been admitted to the hospital. On today's evaluation that is06/20/2023, patient has been afebrile, patient is breathing comfortably and is currently on room air, patient denies having any significant cough no chest pain shortness of breath, patient denies nausea vomiting or diarrhea and no abdominal pain, denies any worsening lower back pain still complaining of a lot of anxiety. Patient white count is 9.56, creatinine 0.8 blood culture has been negative so far back cultures currently pending Objective - Vital Signs Vital signs: Vital Signs Temp 98.8 F 06/20/23 14:00 Pulse 62 06/20/23 14:00 Resp 17 06/20/23 14:00 BP 182/87 06/20/23 14:00 Pulse Ox 97 06/20/23 14:00 FiO2 Intake & Output 06/19/23 06/20/23 06/20/23 18:59 06:59 18:59 Intake Total 900 240 Balance 900 240 Intake: Oral 900 240 Other: Voiding Method Toilet Toilet Toilet # Voids 4 3 - Exam GENERAL DESCRIPTION: An elderly male lying in bed in no distress RESPIRATORY SYSTEM: Unlabored breathing , decreased breath sounds at bases HEART: S1 S2 regular rate and rhythm , ABDOMEN: Soft , no tenderness EXTREMITIES: No edema feet - Labs CBC & Chem 7: 06/20/23 05:58 06/20/23 05:58 Labs: Abnormal Lab Results - Last 24 Hours (Table) 06/20/23 06/20/23 Range/Units 05:58 05:58 RBC 2.97 L (4.40-5.60) X 10*6/uL Hgb 9.5 L (13.0-17.0) g/dL Hct 30.0 L (39.6-50.0) % MCV 101.0 H (80.0-97.0) FL MCHC 31.7 L (32.0-37.0) g/dL RDW 15.4 H (11.5-14.5) % BUN/Creatinine Ratio 21.12 H (12.00-20.00) Ratio Microbiology - Last 24 Hours (Table) 06/18/23 16:20 Gram Stain - Preliminary Back Wound Culture - Preliminary 06/18/23 16:20 Gram Stain - Preliminary Back Wound Culture - Preliminary 06/16/23 16:09 Blood Culture - Preliminary Blood 06/16/23 15:50 Blood Culture - Preliminary Blood Assessment and Plan (1) Discitis Current Visit: Yes Status: Acute Code(s): M46.40 - DISCITIS, UNSPECIFIED, SITE UNSPECIFIED SNOMED Code(s): 1430881 (2) Osteomyelitis of lumbar spine Current Visit: Yes Status: Acute Code(s): M46.26 - OSTEOMYELITIS OF VERTEBRA, LUMBAR REGION SNOMED Code(s): 038039531 Plan: 1patient presented to hospital with chronic pain to the lower back area and this patient has been diagnosed with osteomyelitis discitis involving L5-S1 area patient did have a history of trauma but no history of any fever or any chills and did have normal sed rate 2 patient with multiple antibiotic ALLERGIES that would limit the number of antibiotic safe to use 3-patient is status post biopsy of the affected area await pathology and cultures currently pending 4-patient on vancomycin will monitor his kidney function and Vanco trough closely Family at the bedside questions answered Dictation was produced using [employer] dictation software. please excuse any grammatical, word or spelling errors. Time with Patient: Less than 30
--- NOTE | 2023-06-21 08:18 | P.PN ---
Subjective Progress Note Date: 06/21/23 Principal diagnosis: 1. L5-S1 osteomyelitis discitis 2. 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 Left lower extremity weakness 4. Mechanical low back pain Patient seen and examined this morning. Patient was resting comfortably in bed. He states he continues with low back pain; that is being managed on current regimen. Patient states he has been ambulatory within room and hallway, tolerating activity well. Patient does report that he is scared and concerned about surgical procedure scheduled for tomorrow. Emotional support provided and questions answered at this time. Informed patient that our service will be around tomorrow morning if he has any further questions. Patient will be NPO at DC. No acute concerns at this time. Objective - Vital Signs Vital signs: Vital Signs Temp 98.7 F 06/21/23 02:15 Pulse 80 06/21/23 02:15 Resp 20 06/21/23 02:15 BP 174/70 06/21/23 02:15 Pulse Ox 93 L 06/21/23 02:15 FiO2 Intake & Output 06/20/23 06/21/23 06/21/23 18:59 06:59 18:59 Intake Total 240 900 Balance 240 900 Intake: Oral 240 900 Other: Voiding Method Toilet Toilet # Voids 3 3 - Exam General: The patient is awake and alert, in no acute distress. Skin: Skin is warm and dry with no obvious rashes or lesions. Eye: Pupils are equal, round and reactive to light, extra-ocular movements are intact; there is normal conjunctiva bilaterally. Neck: The neck is supple, there is no tenderness and ROM intact. Respiratory: Respirations are non-labored, breath sounds are equal. Gastrointestinal: Soft, non-distended, non-tender abdomen. Back: There is moderate tenderness to palpation in the midline lumbar region. There is no obvious deformity. Musculoskeletal: ROM limited secondary to pain. Bilateral upper extremities 5/5, Right lower extremity 4+/5, Left lower extremity knee flexor 4/5, ankle dorsiflexor 4-/5, ankle plantarflexion 3+/5 and extensor hallucis 3+/5. Neurological: CN 2-12 intact. There are no obvious motor or sensory deficits. Movement and coordination equal and intact. Sensory exam to light touch intact C5-T1 and intact from L2-S1. Reflexes 2/4 in bilateral upper and lower extremities. Negative Hoffmans, babinski, and clonus signs. Psychiatric: Cooperative, appropriate mood & affect, normal judgment. - Labs CBC & Chem 7: 06/20/23 05:58 06/20/23 05:58 Labs: Abnormal Lab Results - Last 24 Hours (Table) 06/20/23 06/20/23 Range/Units 05:58 05:58 RBC 2.97 L (4.40-5.60) X 10*6/uL Hgb 9.5 L (13.0-17.0) g/dL Hct 30.0 L (39.6-50.0) % MCV 101.0 H (80.0-97.0) FL MCHC 31.7 L (32.0-37.0) g/dL RDW 15.4 H (11.5-14.5) % BUN/Creatinine Ratio 21.12 H (12.00-20.00) Ratio Microbiology - Last 24 Hours (Table) 06/18/23 16:20 Gram Stain - Preliminary Back Wound Culture - Preliminary 06/18/23 16:20 Gram Stain - Preliminary Back Wound Culture - Preliminary 06/16/23 16:09 Blood Culture - Preliminary Blood 06/16/23 15:50 Blood Culture - Preliminary Blood Assessment and Plan Assessment: -Postop day 3: L5 and S1 vertebral body biopsy 1. L5-S1 osteomyelitis discitis 2. 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 Left lower extremity weakness 4. Mechanical low back pain Plan: -Appreciate cruise consultant and team management. -2D ECHO has been ordered -Patient to be NPO at DC for scheduled L4-S1 decompression and fusion, tomorrow 06/22/23. -Activity: Ambulate QID, OOB all meals, up and about, limit lifting bending twisting to less than 5 lbs. Use walker or cane if needed for stability. -Daily PT/OT, increase ambulation strength and balance. -Brace when up and about, not needed in bed or chair -Pain control: Adequate at this time -Meds: reviewed -GI ppx: senna, MOM -DVT PPX: Heparin -Encourage IS 10x/hr -Dispo: Clinically pending *I reviewed and discussed this case with my attending Dr. Hogan, whom has reviewed this chart and films and is in agreement with assessment and plan of care as outlined above. I have personally seen and examined the patient, performed the documentation and the assessment and plan as written. Number of minutes spent on the visit: 30m.
[2023-06-21 08:39] LABS: HCT 31.7 % (39.6-50.0); HGB 10.2 g/dL (13.0-17.0); MCH 32.1 pg (27.0-32.0); MCHC 32.2 g/dL (32.0-37.0); MCV 99.7 FL (80.0-97.0); NRBC Per 100 WBC 0.07 X 10*3/uL (0.00-0.01); Platelet Count 266 X 10*3/uL (140-440); RBC 3.18 X 10*6/uL (4.40-5.60); RDW 15.4 % (11.5-14.5); WBC 13.24 X 10*3/uL (4.50-10.00)
[2023-06-21 08:50] LABS: BUN/Creat Ratio 15.25 Ratio (12.00-20.00); Blood Urea Nitrogen 12.2 mg/dL (9.0-27.0); Calcium 9.2 mg/dL (8.7-10.3); Carbon Dioxide 26.3 mmol/L (21.6-31.8); Chloride 101 mmol/L (96-109); Glucose 83 mg/dL (70-110); Magnesium 2.1 mg/dL (1.5-2.4); Potassium 4.1 mmol/L (3.5-5.5); Sodium 140 mmol/L (135-145)
[2023-06-21 10:05] LABS: Basophils # (A) 0.12 X 10*3/uL (0.00-0.10); Basophils % (A) 0.9 %; Eosinophils # (A) 0.24 X 10*3/uL (0.04-0.35); Eosinophils % (A) 1.8 %; Lymphocytes # (A) 2.89 X 10*3/uL (0.90-5.00); Lymphocytes % (A) 21.8 %; Monocytes # (A) 1.65 X 10*3/uL (0.20-1.00); Monocytes % (A) 12.5 %; Neutrophils # (A) 8.29 X 10*3/uL (1.80-7.70); Neutrophils % (A) 62.6 %; RBC Morphology Normal (Normal)
--- NOTE | 2023-06-21 12:20 | P.PN ---
Subjective Progress Note Date: 06/21/23 Principal diagnosis: Reason for follow-up is abnormal MRI with a question of discitis/osteomyelitis Patient is a 68-year-old male with no significant past medical history however the patient did have a fall around Thanksgiving since then the patient has been dealing with the lower back pain with recent outpatient MRI suspicious for discitis/osteomyelitis for which the patient has been admitted to the hospital. On today's evaluation that is 06/21/2023,the patient did have a low-grade fever of 99.8 However denies any fever or any chills, patient is breathing comfortably on room air, the patient denies chest pain shortness of breath and no significant cough, patient denies abdominal pain, no nausea vomiting or diarrhea, denies any worsening lower back pain Patient white count is slightly to 13.24, creatinine 0.8 culture have been negative so far Objective - Vital Signs Vital signs: Vital Signs Temp 99.1 F 06/21/23 08:00 Pulse 63 06/21/23 08:00 Resp 17 06/21/23 08:00 BP 157/57 06/21/23 08:00 Pulse Ox 98 06/21/23 08:00 FiO2 Intake & Output 06/20/23 06/21/23 06/21/23 18:59 06:59 18:59 Intake Total 240 900 Balance 240 900 Intake: Oral 240 900 Other: Voiding Method Toilet Toilet Toilet # Voids 3 3 - Exam GENERAL DESCRIPTION: An elderly male lying in bed in no distress RESPIRATORY SYSTEM: Unlabored breathing , decreased breath sounds at bases HEART: S1 S2 regular rate and rhythm , ABDOMEN: Soft , no tenderness EXTREMITIES: No edema feet - Labs CBC & Chem 7: 06/21/23 05:16 06/21/23 05:16 Labs: Abnormal Lab Results - Last 24 Hours (Table) 06/21/23 06/21/23 Range/Units 05:16 05:16 WBC 13.24 H (4.50-10.00) X 10*3/uL RBC 3.18 L (4.40-5.60) X 10*6/uL Hgb 10.2 L (13.0-17.0) g/dL Hct 31.7 L (39.6-50.0) % MCV 99.7 H (80.0-97.0) FL MCH 32.1 H (27.0-32.0) pg RDW 15.4 H (11.5-14.5) % MPV 9.0 L (9.5-12.2) FL Immature Gran # 0.05 H (0.00-0.04) X 10*3/uL Neutrophils # 8.29 H (1.80-7.70) X 10*3/uL Monocytes # 1.65 H (0.20-1.00) X 10*3/uL Basophils # 0.12 H (0.00-0.10) X 10*3/uL NRBC/100 WBC Diff 0.07 H (0.00-0.01) X 10*3/uL Anion Gap 12.70 H (4.00-12.00) mmol/L Microbiology - Last 24 Hours (Table) 06/18/23 16:20 Gram Stain - Final Back Wound Culture - Final 06/18/23 16:20 Gram Stain - Final Back Wound Culture - Final Assessment and Plan (1) Discitis Current Visit: Yes Status: Acute Code(s): M46.40 - DISCITIS, UNSPECIFIED, SITE UNSPECIFIED SNOMED Code(s): 5064009 (2) Osteomyelitis of lumbar spine Current Visit: Yes Status: Acute Code(s): M46.26 - OSTEOMYELITIS OF VERTEBRA, LUMBAR REGION SNOMED Code(s): 165719741 Plan: 1patient presented to hospital with chronic pain to the lower back area and this patient has been diagnosed with osteomyelitis discitis involving L5-S1 area patient did have a history of trauma but no history of any fever or any chills and did have normal sed rate 2 patient with multiple antibiotic ALLERGIES that would limit the number of antibiotic safe to use 3-patient is status post biopsy of the affected area await pathology and cultures are so far negative if the biopsy is negative for osteomyelitis/discitis we will discontinue vancomycin for now continue with he did have slight elevation white count today will be monitored closely Dictation was produced using [employer] dictation software. please excuse any grammatical, word or spelling errors. Time with Patient: Less than 30
--- NOTE | 2023-06-21 13:49 | CA ---
Transthoracic Echo Report Name: Chay Luque Age: 68 Gender: M : 1955 Exam Date: 06/21/2023 08:10 Exam Location: [facility] Ht (in): 70 Wt (lb): 162 Ordering Physician: Roberto Hogan DO Attending/Referring Phys: Route Driver Salesperson Leatha Smith RDCS Procedure CPT: Indications: r/o cardiac vegitations. osteomyelitis spine Cardiac Hx: Technical Quality: Fair Contrast 1: Total Dose (mL): Contrast 2: Total Dose (mL): MEASUREMENTS (Male / Female) Normal Values 2D ECHO LV Diastolic Diameter PLAX 4.1 cm 4.2 - 5.9 / 3.9 - 5.3 cm LV Systolic Diameter PLAX 2.6 cm IVS Diastolic Thickness 1.2 cm 0.6 - 1.0 / 0.6 - 0.9 cm LVPW Diastolic Thickness 1.2 cm 0.6 - 1.0 / 0.6 - 0.9 cm LV Relative Wall Thickness 0.6 RV Internal Dim ED PLAX 2.4 cm LA Systolic Diameter LX 3.3 cm 3.0 - 4.0 / 2.7 - 3.8 cm LV Diastolic Volume MOD BP 53.4 cm??? 67 - 155 / 56 - 104 cm??? LV Systolic Volume MOD BP 21.4 cm??? 22 - 58 / 19 - 49 cm??? LV Ejection Fraction MOD BP 59.9 % >= 55 % LV Cardiac Index MOD BP 1107.2 cm???/min???m??? LV Diastolic Volume MOD 4C 57.9 cm??? LV Systolic Volume MOD 4C 23.1 cm??? LV Ejection Fraction MOD 4C 60.0 % LV Cardiac Index MOD 4C 1202.9 cm???/min???m??? LV Diastolic Length 4C 6.5 cm LV Systolic Length 4C 5.7 cm LV Diastolic Volume MOD 2C 46.5 cm??? LV Systolic Volume MOD 2C 18.9 cm??? LV Ejection Fraction MOD 2C 59.4 % LV Cardiac Index MOD 2C 954.7 cm???/min???m??? LV Diastolic Length 2C 6.9 cm LV Systolic Length 2C 6.1 cm LA Volume 36.8 cm??? 18 - 58 / 22 - 52 cm??? LA Volume Index 19.3 cm???/m??? 16 - 28 cm???/m??? M-MODE Aortic Root Diameter MM 3.5 cm LA Systolic Diameter MM 2.8 cm LA Ao Ratio MM 0.8 AV Cusp Separation MM 1.9 cm DOPPLER AV Peak Velocity 168.2 cm/s AV Peak Gradient 11.3 mmHg MV Area PHT 1.7 cm??? Mitral E Point Velocity 115.4 cm/s Mitral A Point Velocity 114.9 cm/s Mitral E to A Ratio 1.0 MV Deceleration Time 440.4 ms TR Peak Velocity 270.1 cm/s TR Peak Gradient 29.2 mmHg FINDINGS Left Ventricle Left ventricular ejection fraction is estimated at 55-60 %. Mildly increased septal wall thickness. Normal left ventricular systolic function with no obvious regional wall motion abnormalities. Left ventricular cavity size normal. Right Ventricle Mild right ventricular dilatation. Right ventricular systolic pressure within normal limits. Right Atrium Mild right atrial dilatation. Left Atrium Mild left atrial dilatation. Mitral Valve Structurally normal mitral valve. Mild mitral regurgitation. Aortic Valve Trileaflet aortic valve. No aortic valve stenosis or regurgitation. No vegetations seen. Tricuspid Valve Structurally normal tricuspid valve. Mild tricuspid regurgitation. Pulmonic Valve Structurally normal pulmonic valve. Trace pulmonic regurgitation. Pericardium No pericardial or pleural effusion. Aorta Normal size aortic root and proximal ascending aorta. CONCLUSIONS Normal LV systolic function No significant valvular abnormalities noted No pericardial effusion Previewed by: Dr. Natanael Cook MD (Electronically Signed) Final Date: 21 June 2023 13:48
--- NOTE | 2023-06-21 15:32 | P.PN ---
Subjective Progress Note Date: 06/21/23 Hospital Course: 68-year-old male with history of hypertension, anxiety presenting from outpati ent surgery office with concern for persistent low back pain of left leg pain for few months. Had outpatient MRI concerning for extensive osteomyelitis with discitis involving L5-S1. MRI shows L5-S1 discitis with L5-S1 osteomyelitis, no obvious epidural collection, epidural thickening redemonstrated. Paraspinal inflammatory changes noted. 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 Cervical and thoracic spine MRI shows acute discitis/osteomyelitis involving the inferior T7 vertebra through the superior T9 vertebra. Status post lumbar biopsy. Cultures no growth to date. Biopsy pending Subjective: Patient seen and examined at bedside. No acute events overnight. Having back pain. Pertinent positives and negatives as discussed above, a complete review of systems was performed and all other systems are negative. Vitals Signs Reviewed. General: Nontoxic, no distress, appears at stated age Derm: Warm, dry Head: Atraumatic, normocephalic, symmetric Eyes: EOMI, no lid lag, anicteric sclera Mouth: No lip lesion, mucus membranes moist Cardiovascular: S1S2 reg, no murmur Lungs: CTA bilateral, no rhonchi, no rales, no accessory muscle use Abdominal: Soft, nontender to palpation, no guarding, no appreciable organ omegaly Ext: 3/5 strength in left lower extremity, 4/5 strength in right lower extremity, 5/5 strength in bilateral upper extremities Neuro: CN II-XI grossly intact, no focal neuro deficits Psych: Alert, oriented, appropriate affect Data Reviewed Today: Pertinent Labs: WBC 13.24, hemoglobin 10.2, creatinine 0.8, magnesium 2.1 Imaging: Cardiogram did not show any valvular abnormalities Assessment and Plan: Active: Discitis/osteomyelitis of thoracic and lumbosacral spine - Orthopedic spine surgery note reviewed, scheduled for decompression and fusion tomorrow, Discussed management with ID, should possibly intervene on thoracic spine as well - On IV vancomycin, monitor renal function PICC line in place - Pain control with IV morphine as needed, Toradol 15 IV every 6 hours, oral Kouts as needed, monitor for sedation - Also on gabapentin 300 mg 3 times daily - Blood cultures and biopsy cultures no growth to date Hypertension Continue on lisinopril and hydrochlorothiazide 10-12 0.5 Continue metoprolol succinate 25 daily DVT ppx: Subcu heparin Code status: Full code Anticipated discharge place: Pending clinical course Anticipated discharge time: Pending clinical course Objective - Vital Signs Vital signs: Vital Signs Temp 99.1 F 06/21/23 08:00 Pulse 63 06/21/23 08:00 Resp 17 06/21/23 08:00 BP 157/57 06/21/23 08:00 Pulse Ox 98 06/21/23 08:00 FiO2 Intake & Output 06/20/23 06/21/23 06/21/23 18:59 06:59 18:59 Intake Total 240 900 Balance 240 900 Intake: Oral 240 900 Other: Voiding Method Toilet Toilet Toilet # Voids 3 3 - Labs CBC & Chem 7: 06/21/23 05:16 06/21/23 05:16 Labs: Abnormal Lab Results - Last 24 Hours (Table) 06/21/23 06/21/23 Range/Units 05:16 05:16 WBC 13.24 H (4.50-10.00) X 10*3/uL RBC 3.18 L (4.40-5.60) X 10*6/uL Hgb 10.2 L (13.0-17.0) g/dL Hct 31.7 L (39.6-50.0) % MCV 99.7 H (80.0-97.0) FL MCH 32.1 H (27.0-32.0) pg RDW 15.4 H (11.5-14.5) % MPV 9.0 L (9.5-12.2) FL Immature Gran # 0.05 H (0.00-0.04) X 10*3/uL Neutrophils # 8.29 H (1.80-7.70) X 10*3/uL Monocytes # 1.65 H (0.20-1.00) X 10*3/uL Basophils # 0.12 H (0.00-0.10) X 10*3/uL NRBC/100 WBC Diff 0.07 H (0.00-0.01) X 10*3/uL Anion Gap 12.70 H (4.00-12.00) mmol/L Microbiology - Last 24 Hours (Table) 06/18/23 16:20 Anaerobic Culture - Preliminary Back 06/18/23 16:20 Anaerobic Culture - Preliminary Back 06/18/23 16:20 Gram Stain - Final Back Wound Culture - Final 06/18/23 16:20 Gram Stain - Final Back Wound Culture - Final
[2023-06-22 06:50] LABS: African American GFR (CKD) >90 (>60 ml/min/1.73 sqM); Anion Gap 6 mmol/L; Blood Urea Nitrogen 14 mg/dL (9-20); Calcium 8.8 mg/dL (8.4-10.2); Carbon Dioxide 28 mmol/L (22-30); Chloride 107 mmol/L (98-107); Glucose 84 mg/dL (74-99); Non-African American GFR(CKD) >90 (>60 ml/min/1.73 sqM); Potassium 5.3 mmol/L (3.5-5.1); Sodium 141 mmol/L (137-145)
[2023-06-22 06:54] LABS: Basophils # (A) 0.1 k/uL (0-0.2); Basophils % (A) 1 %; Eosinophils # (A) 0.4 k/uL (0-0.7); Eosinophils % (A) 4 %; HGB 10.2 gm/dL (13.0-17.5); Lymphocytes # (A) 2.1 k/uL (1.0-4.8); Lymphocytes % (A) 20 %; MCHC 32.8 g/dL (31.0-37.0); MCV 97.6 fL (80.0-100.0); Monocytes # (A) 1.1 k/uL (0-1.0); Monocytes % (A) 11 %; Neutrophils # (A) 6.4 k/uL (1.3-7.7); Neutrophils % (A) 61 %; RBC 3.18 m/uL (4.30-5.90); RDW 15.1 % (11.5-15.5); WBC 10.4 k/uL (3.8-10.6)
[2023-06-22 06:55] LABS: Platelet Count 186 k/uL (150-450)
--- NOTE | 2023-06-22 07:20 | P.PN ---
Progress Note - Text Progress Note Date: 06/22/23 Spine Surgery Clinical and Risk Review Chay Luque is a 68 yo male presenting for evaluation of severe low back pain for >6 mo with increasing pain, weakness in RLE with foot drop and new onset paresthesias. It was my pleasure to have seen and examined Chay Luque. In our visit today we have had a chance to go over subjective complaints, physical examination findings and treatments including the natural course history without intervention and various interventional options. The patients imaging demonstrates L5-S1 severe erosive changes consistent with discitis osteomyelitis. There is T2 increased signal intensity in the L5 and S1/2 bodies with phlegmon substance in the S1 body eroding into the S2 body. There is anterior phlegmon noted tenting the ALL and tracking inferiorly. There is also PLL tenting with epidural phlegmon suspected in this area which is hyperintense on FLAIR and T2 and dark on T1. There is also area suggestive of discitis starting at L2-3 and T8-9 which is less intense at this ttime. CT shows severe bony erosive changes in L5 and S1 due to the infective process. No fractures present at this time. 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 He is not showing any severe signs of this at this time. On physical exam,Chay Luquedemonstrates Severe low back pain with motion, debilitating him to the point of not being able to perform ADLs at this time which has progressed since Dec 2022. He states new onset paresthesias into LE b/l and has 3/5 DF on the LLE which has progressed. He has 4/5 strength in LLE HF, KF, KE and PF while he has 4+/5 in all facets of the RLE. He has decreased sensation L3-5 on the left. He is otherwise NV intact distally. Neg babinski, Neg clonus, +terry's b/l UE, non brisk and DTR are 2+/4. Limited ROM secondary to pain at this time. Neg SLR. I have explained to the patient that as their condition progresses it will cause further neurological deficits and eventual paralysis. Based on the patients imaging, physical exam, and the rapid progression and disabling nature of their symptoms, at this time I recommend surgery in the form or a: L4-S1 decompression, biopsy, epidural evacuation and instrumented fusion with antibiotic spacer placement. I discussed the risk and benefits of this procedure at length with Chay Luque. The patient son and spouse agreed to considered pursuing the procedure abovementioned. Prior to surgery, she should follow up with her PCP (Cardio, ID, IM etc) for clearance. Questions were invited and answered, and the patient wishes to proceed as outlined below. Currently, I am recommendin. L4-S1 decompression, biopsy, epidural evacuation and instrumented fusion with antibiotic spacer placement 2. Follow up with PCP for surgical clearance 3. Review of surgical risks and benefits as well as an educational packet on the proposed surgical procedure. Risks: All surgical procedures come with inherent risks, including those related to positioning, anesthesia, intraoperative findings, and postoperative complications. It is important to understand that surgery does not come with any guarantee of a successful outcome as complications and adverse events are always possible. The patient was given a handout in office today discussing the surgical procedure and risks associated with the intervention, both of which were discussed with the patient. These risks include but are not limited to the following: * Experiencing same, different or even worse symptoms in back, neck, arms, or legs compared to before surgery. * Requiring further surgery or other forms of treatment presently or at some time in the future at same or other levels of the intended spine surgery. * On an extreme but fortunately relatively rare basis severe complication such as blindness, stroke, heart attack, temporary and/or permanent nerve injury, paralysis, coma, or may occur, sometimes without known explanation. * Surgical complications may include but are not limited to risk of infection, fluid accumulation in the surgical dissection site, including a seroma or hematoma, that requires additional surgery, wound drainage, bleeding, new numbness or weakness, vision changes/loss, spinal fluid leakage, non-healing and/or infected incision, headaches, difficulty or inability to swallow, hoarseness, hemopneumothorax, pneumothorax, impotence, retrograde ejaculation, vaginal dryness; injury to nerves, spinal cord, blood vessels, lymphatics or other vital organs (i.e., bowel injury, injury to the great vessels); heterotopic bone formation; complications related to the hardware such as screws, rods, cages including misplaced hardware, device failure, instrumentation at the wrong spine level, hardware fracture/breakage, or hardware loosening; vertebral failure of the spinal column above or below the newly placed hardware; retained surgical instrumentations or devices and the need for further surgery. * Medical risks of the planned spine surgery include but are not limited to generalized Infections to the whole body or local areas outside of the surgical site (sepsis), heart attack, bleeding, anaphylaxis, meningitis, seizure, epilepsy, hearing loss, burn prieto, laceration of the head or other areas of the body, bruising, hypersensitivity of the skin, bladder over distension; allergic reaction; shoulder injury related to positioning; fat, blood and air clots to other areas of the body like heart, lungs, brain; failure of internal organs such as lungs, kidneys, liver and excessive bleeding. If blood transfusions are necessary, note that transfusions may cause intolerance reactions such as anaphylaxis or other complex reactions. * Despite best efforts, the results of spine surgery might not heal in terms of bone, soft tissues such as skin, fascia, ligaments, and joints. Additionally, in order to achieve best possible results, spine surgery may be carried out beyond the initially planned levels and involve decompression, fusion including insertion of hardware at levels other than the original intended area of surgical interest change some portions of the procedure in order to ensure the best possible outcomes. * With spine surgery and spinal fusion, there are different off label uses of instrumentation (devices, implants and hardware) as well as biological substances (bone morphogenic proteins, demineralized bone matrix) as well as using extra bone from allograft sources (i.e. cadaver bone) or autograft (iliac crest bone, ribs, or the spine itself). The patient has been given information about these practices and their inherent risks and benefits. The patient has had a chance to review all the listed information, has been given print outs detailing this information, and has had all his/her questions answered to their satisfaction. It was my pleasure to have seen and examined Chay Luque. In our visit today we have had a chance to go over my understanding of our patient's current condition, the natural course history without intervention and various interventional options. Questions were invited and answered, and the patient wishes to proceed as outlined above. I have seen and examined the patient for 25 minutes and we have spent more than 50% of the time in repeat and detailed counseling about the patient's condition, its natural course history with out and as much as can be predicted with surgery and re-review of various surgical treatment options. In conclusion, Chay Luque and son and spouse requested we proceed with the above suggested surgery and are willing to accept risks and limitations of the suggested surgery as nature of the disease process and our best attempts at treatment for the condition. Thank you again for allowing us to be part of your patient's care. Please don't hesitate to contact me if you have any further questions. Signed and authenticated by: Roberto Ellsworth [facility] [address] [address]
[2023-06-22] MEDS: IV FLUID CONTINUATION 800 ML IV ONE (09:15)
[2023-06-22] MEDS ORDERED: ONDANSETRON 4 MG/2 ML VIAL ONE ×2 (09:47→09:53)
[2023-06-22] MEDS ORDERED: TRANEXAMIC 1,000 MG/100ML-NACL PREMIX BAG ONE (09:53)
[2023-06-22] MEDS ORDERED: KETAMINE HCL IN 0.9 % NACL 50 MG/5 ML SYRINGE ONE (09:53)
[2023-06-22] MEDS ORDERED: SUGAMMADEX SODIUM 200 MG/2 ML SDV IV ONE (09:53)
[2023-06-22] MEDS ORDERED: PROPOFOL 10 MG/ML 20 ML VIAL IV ONE (09:53)
[2023-06-22] MEDS ORDERED: HYDROmorphone (PF) 1 MG/ML ONE (09:53)
[2023-06-22] MEDS ORDERED: MIDAZOLAM 2 MG/2 ML VIAL ONE (09:53)
[2023-06-22] MEDS ORDERED: NEOSTIGMINE 1 MG/ML 10 ML VIAL ONE (09:53)
[2023-06-22] MEDS ORDERED: SUCCINYLCHOLINE CHLORIDE 200 MG/10 ML VIAL IV ONE (09:53)
[2023-06-22] MEDS ORDERED: fentaNYL (PF) 50 MCG/ML 2 ML AMP ONE (09:53)
[2023-06-22] MEDS ORDERED: ROCURONIUM 10 MG/ML (5 ML VIAL) IV ONE (09:53)
[2023-06-22] MEDS ORDERED: LIDOCAINE 1% INJ 10MG/ML (20 ML MDV) ONE (09:53)
[2023-06-22] MEDS: ACETAMINOPHEN TAB 500 MG TAB PO STA (09:53)
[2023-06-22] MEDS ORDERED: ePHEDrine 50 MG/ML 1 ML VIAL ONE (09:53)
[2023-06-22] MEDS ORDERED: GLYCOPYRROLATE 0.2 MG/ML 2 ML VIAL ONE (09:53)
[2023-06-22] MEDS: ONDANSETRON 4 MG/2 ML VIAL IVP ONE (09:54)
[2023-06-22] MEDS: LACTATED RINGERS 1,000 ML IV ONE ×2 (10:20→14:20)
[2023-06-22] MEDS: THROMBIN (BOVINE) 5,000 UNIT VIAL TOPICAL ONE ×2 (10:43)
[2023-06-22] MEDS: TOBRAMYCIN SULFATE 1.2 GM VIAL MISCELLANE ONE (12:07)
[2023-06-22] MEDS: VANCOMYCIN 1,000 MG VIAL MISCELLANE ONE ×2 (12:08)
[2023-06-22] MEDS: ceFAZolin 3,000 MG in SODIUM CHLORIDE 0.9% IRRIGATIO 3,000 ML IRRIGATION ONE (13:29)
[2023-06-22] MEDS: GENTAMICIN 80 MG in SODIUM CHLORIDE 0.9% IRRIGATIO 3,000 ML IRRIGATION ONE (13:29)
[2023-06-22 14:03] VITALS: BMI 23.2
[2023-06-22] MEDS ORDERED: SENNOSIDES-DOCUSATE SODIUM 1 EACH TAB PO PRN (14:15)
--- NOTE | 2023-06-22 14:18 | P.OP ---
Date of Procedure: 06/22/23 Preoperative Diagnosis: 1. L5-S1 OSTEOMYELITIS DISCITIS WITH BONY ENDPLATE EROSION 2. L4-S1 SPONDYLOSIS WITH STENOSIS 3. LLE WEAKNESS, DROP FOOT 4. LE PARESTHESIAS 5. LOW BACK PAIN 6. COMPLEX MEDICAL PATIENT Postoperative Diagnosis: 1. L5-S1 OSTEOMYELITIS DISCITIS WITH BONY ENDPLATE EROSION 2. L4-S1 SPONDYLOSIS WITH STENOSIS 3. LLE WEAKNESS, DROP FOOT 4. LE PARESTHESIAS 5. LOW BACK PAIN 6. COMPLEX MEDICAL PATIENT Procedure(s) Performed: 1. L5-S1 INTRADISCAL OSTEOTOMY WITH COMPLETE DISCECTOMY AND PHLEGMON EVACUATION, 3 COLUMN, FOR DEFORMITY CORRECTION AND DECOMPRESSION 2. L4-5 INTRADISCAL OSTEOTOMY WITH COMPLETE DISCECTOMY FOR DEFORMITY CORRECTION, 3 COLUMN 3. L5-S1 POSTEROLATERAL AND INTERBODY FUSION 4. L4-5 POSTEOLATERAL AND INTERBODY FUSION 5. L4-5 AND L5-S1 BILATERAL LAMINECTOMY, COMPLETE FACETECTOMY AND FORAMINOTOMY FOR DECOMPRESSION AND DEFORMITY CORRECTION 6. L4-S1 SEGMENTAL INSTRUMENTATION 7. L4-5 AND L5-S1 INSERTION OF BIOMECHANICAL DEVICE 8. L5-S1 PLACEMENT OF ANTIBIOTIC CEMENT IN THE INTERBODY SPACE 9. USE OF [employer] NAVIGATION FOR SCREW PLACEMENT USE OF [facility] CPTMOD 22 THIS CASE TOOK 80% LONGER THAN EXPECTED DUE TO DEGREE OF LUMBAR DISEASE, HIGH TECHNICALITY OF THE CASE, COMORBID CONDITIONS AND SEVERITY OF BONY EROSION. 99515, 28739, 33258, 08597, 71013, 29581, 54136, 06835, 97015, 15774, 84725 Implants: -BERENICE EVEREST RODS AND SCREWS -GLOBUS SABLE CAGE 12MM, 15 DEG, 10-17MM, MED -BERENICE TRITANIUM 6 DEG 9X11MM, MED -PALICOSE ABX CEMENT L5-S1 -MAGNATOS (LEFT), AUTOGRAFT, ALLOGRAFT, CONTOUR (RIGHT) -STIMULAN BEADS Anesthesia: GETA Surgeon: Roberto Hogan Germination Worker #1: Toney Nichole (VIKKI Storey Was present and assisted with all aspects of the case from positioning to dressing placement) Estimated Blood Loss (ml): 350 IV fluids (ml): 1,500 Urine output (ml): 550 Pathology: other (L5, S1 biopsy and cultures, L5-S1 disc space and VB) Condition: stable Disposition: PACU Indications for Procedure: Chay Luque is a 68 yo male presenting for evaluation of severe low back pain for >6 mo with increasing pain, weakness in RLE with foot drop and new onset paresthesias. It was my pleasure to have seen and examined Chay Luque. In our visit today we have had a chance to go over subjective complaints, physical examination findings and treatments including the natural course history without intervention and various interventional options. The patients imaging demonstrates L5-S1 severe erosive changes consistent with discitis osteomyelitis. There is T2 increased signal intensity in the L5 and S1/2 bodies with phlegmon substance in the S1 body eroding into the S2 body. There is anterior phlegmon noted tenting the ALL and tracking inferiorly. There is also PLL tenting with epidural phlegmon suspected in this area which is hyperintense on FLAIR and T2 and dark on T1. There is also area suggestive of discitis starting at L2-3 and T8-9 which is less intense at this ttime. CT shows severe bony erosive changes in L5 and S1 due to the infective process. No fractures present at this time. 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 He is not showing any severe signs of this at this time. On physical exam,Chay Luquedemonstrates Severe low back pain with motion, debilitating him to the point of not being able to perform ADLs at this time which has progressed since Dec 2022. He states new onset paresthesias into LE b/l and has 3/5 DF on the LLE which has progressed. He has 4/5 strength in LLE HF, KF, KE and PF while he has 4+/5 in all facets of the RLE. He has decreased sensation L3-5 on the left. He is otherwise NV intact distally. Neg babinski, Neg clonus, +terry's b/l UE, non brisk and DTR are 2+/4. Limited ROM secondary to pain at this time. Neg SLR. I have explained to the patient that as their condition progresses it will cause further neurological deficits and eventual paralysis. Based on the patients imaging, physical exam, and the rapid progression and disabling nature of their symptoms, at this time I recommend surgery in the form or a: L4-S1 decompression, biopsy, epidural evacuation and instrumented fusion with antibiotic spacer placement. I discussed the risk and benefits of this procedure at length with Chay Luque. The patient son and spouse agreed to considered pursuing the procedure abovementioned. Prior to surgery, she should follow up with her PCP (Cardio, ID, IM etc) for clearance. Questions were invited and answered, and the patient wishes to proceed as outlined below. Currently, I am recommendin. L4-S1 decompression, biopsy, epidural evacuation and instrumented fusion with antibiotic spacer placement Description of Procedure: L4-S1 open Decompression and fusion INTRADISCAL X2 (TESFAYE) The patient was seen and examined in the preoperative area. All preoperative protocols were followed. Informed consent was obtained, risks and benefits of the procedure were discussed at length. Risks including bleeding infection damage to the surrounding tissue and risk of reoperation were discussed with the patient. Risk of anesthesia up to and including was discussed with the patient. These are outlined in the risk review. They were willing to accept these risks and all the risks of surgery. The patient was given a weight-based dose of antibiotics in the form of 2 g Ancef. The patient was seen and evaluated by the anesthesia team who deemed them fit for surgery. The site was marked, the patient was willing to proceed with the procedure. The patient was transferred to the operative suite by the Department of anesthesia. They were then drifted off to sleep by the department anesthesia and GETA was performed. The patient tolerated this well. Hernandez catheter was placed by nursing staff, a-traumatically. Once confirmation of lines and luli tilation the patient was transferred to a prone Bereket table very carefully. All bony prominences including wrists, elbows, axilla, chest, hips, and thighs, and feet were padded very well. Special attention was paid to the genitalia, and these were padded accordingly. SCDs were placed on bilateral lower extremities and were connected. Arms were well padded and placed on arm boards up and out in the 90/90 position. Once in position, again we confirmed good ventilation capabilities and that lines were running appropriately. The patients Lumbar spine was then exposed. 1010s were placed outlining the incision site. Standard alcohol was used to clean the incision site and allowed to dry. C-arm was used to needle localize the pedicles at L4-S1 and bio-kitty the patient and confirm level for incision which was marked with a skin marker. Operative briefing was performed with all teams and everyone in agreement to proceed. The patient was then prepped and draped in a normal sterile fashion. Timeout was then performed, and all parties agreed with the procedure to be performed. Midline skin incision was made over the previously bio-marked area and dissection taken down over the SP of L3-S1. L4-S1 was taken out over facet joints and TPs and a penfield 4 used to kitty the L4 pedicle. Lateral image used to confirm levels. Once confirmed, screws were proceeded to be placed b/l at p edicles from L4-S1 using [email or web address] Navigation. An SP clamp was used, 3D C arm spin obtained and confirmed to be accurate. Once this was confirmed screws were placed using a navigated obdulia, navigated awl-tap and navigated pick up and delivery driver. Once screws were placed they were confirmed to be in good position using AP and Lateral fluoroscopy. The wound was then irrigated. Screws were tested and all tested above 20 mA. We then proceeded to decompression and cage placement. Attention was then turned to interbody fusion at L5-S1 and osteotomy for deformity correction. There was exuberant scar and osteophyte formation, as well as deformity due to the erosion of the endplates and cystic formation around the neural elements. Bilateral laminectomy, complete facetectomy and foraminotomy performed at L5-S1 using high speed obdulia and Kerrison rongeur. The ligamentum was removed and the dural sac decompressed. Exiting and traversing roots visualized and decompressed. Neural elements were then protected, and disc space accessed with an osteotome. Intradiscal, 3 column osteotomy, was performed under fluoroscopic guidance using an osteotome to remove the entire disc. On one side, Sequential shaving then done under lateral imaging and complete discectomy is performed using mae, pituitary and curette. A large defect was encountered in the S1 VB endplate which was suspected due to CT scan, this was evacuated and all disc material was sent for cultures as well as pathology. Culture of the L5-S1 disc space was taken as well as S1 and L5 vertebral bodies. A Oskouian cell coverer was placed on one side and we proceeded to the other side for further removal. On the other side DAREK was done again and further disc removal was done as well as evacuation of phlegmon-like material. There was a better endplate on this side so it was elected to place the cage on the right. Once good bleeding endplates accomplished and good height baptism with trials, a combination of autograft, allograft and synthetic placed anterior in the disc space. The cage was then selected and impacted into place under lateral imaging. The cage was then expanded restoring height, lordosis and alignment. The cage was backfilled with bone graft through a funnel. The gang worker was removed and the area inspected. Good cage placement, stable cage and no injuries. Then on the other side the cell coverer was removed and Palicose cement with abx was made and placed in the intervertebral space here due to the large void and bone loss as well as for local abx control and placement. This was done without issues under fluoro guidance and was tamped down to be smooth. No issues with cementation were encountered. Area was irrigated copiously, and meticulous hemostasis achieved. We then proceeded to L4-5 interspace. Attention was then turned to interbody fusion at L4-5. Bilateral laminectomy, complete facetectomy and foraminotomy performed at L4-5 using high speed obdulia and Kerrison rongeur. The ligamentum was removed and the dural sac decompressed. Exiting and traversing roots visualized and decompressed. Neural elements were then protected, and disc space accessed with an osteotome. Intradiscal, 3 column osteotomy, was performed under fluoroscopic guidance using an osteotome to remove the entire disc. Sequential shaving then done under lateral imaging and complete discectomy performed using mae, pituitary and curette. Once good bleeding endplates accomplished and good height baptism with trials, a combination of autograft, allograft and synthetic placed anterior in the disc space. The cage was then selected and impacted into place under lateral imaging. Cage was filled and impacted which restored height and lordosis to this level as well. The gang worker was removed and the area inspected. Good cage placement, stable cage and no injuries. Area was irrigated copiously, and meticulous hemostasis achieved. The wound and disc spaces were irrigated and meticulous hemostasis achieved. Rods were then sized and selected and placed into S1 screws b/l. Set screws locked these in place and then sequentially reduced into L4 and L5 b/l for alignment baptism. This was accomplished. Set screws were then all placed and finally tightened. A cross link was selected and placed and finally tightened. TPs were then decorticated with a high speed obdulia. The wound was irrigated with 3L Ancef irrigation, 2L betadine, 1L irricept and 3L gentamicin irrigation and 3L NSS. Surgicel was placed over the dura. Autograft and MagnatOs placed in the Left PL gutter and Contour and autograft placed in the right PL gutter. then placed in the posterolateral gutters and impacted into place. Deep drain placed and secured to the skin. Final images confirmed good placement of hardware and good reduction of listhesis as well as baptism of height and lordosis. Fascia was then closed with #1 PDS. Deep subq closed with 0 Vicryl. Superficial subq closed with 2-0 Vicryl and skin with ashli. Wound edges approximated very well. Wound was then cleaned with alcohol and dried. Wounds dressed with Optifoam dressings. The patient was then transferred off the table back to their hospital bed a- traumatically. They were extubated by the department of anesthesia. They were then transferred to PACU in stable condition having tolerated the procedure with no complications.
--- NOTE | 2023-06-22 14:21 | FL ---
EXAMINATION TYPE: FL guidance operating room, XR lumbar spine 2 or 3V Intraoperative/procedural fluor oscopic services were provided. Total fluoroscopy time is 1 minute 35 seconds with a total of 10 subm itted images to PACS. Please see the operative/procedural note for further details. DAP: 12.75 Gycm2
--- NOTE | 2023-06-22 15:29 | P.PN ---
Subjective Progress Note Date: 06/22/23 Hospital Course: 68-year-old male with history of hypertension, anxiety presenting from outpati ent surgery office with concern for persistent low back pain of left leg pain for few months. Had outpatient MRI concerning for extensive osteomyelitis with discitis involving L5-S1. MRI shows L5-S1 discitis with L5-S1 osteomyelitis, no obvious epidural collection, epidural thickening redemonstrated. Paraspinal inflammatory changes noted. 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 Cervical and thoracic spine MRI shows acute discitis/osteomyelitis involving the inferior T7 vertebra through the superior T9 vertebra. Status post lumbar biopsy. Cultures no growth to date. Biopsy pending. Status post surgery Subjective: Patient seen and examined at bedside. No acute events overnight. Pertinent positives and negatives as discussed above, a complete review of systems was performed and all other systems are negative. Vitals Signs Reviewed. General: Nontoxic, no distress, appears at stated age Derm: Warm, dry, dressing, clean, dry, intact Head: Atraumatic, normocephalic, symmetric Eyes: EOMI, no lid lag, anicteric sclera Mouth: No lip lesion, mucus membranes moist Cardiovascular: S1S2 reg, no murmur Lungs: CTA bilateral, no rhonchi, no rales, no accessory muscle use Abdominal: Soft, nontender to palpation, no guarding, no appreciable organomegaly Ext: 3/5 strength in left lower extremity, 4/5 strength in right lower extremity, 5/5 strength in bilateral upper extremities Neuro: CN II-XI grossly intact, no focal neuro deficits Psych: Alert, oriented, appropriate affect Data Reviewed Today: Pertinent Labs: WBC 10.4, hemoglobin 10.2, potassium 3.7, creatinine 0.63 Imaging: No new imaging Assessment and Plan: Active: Discitis/osteomyelitis of thoracic and lumbosacral spine status post surgery -Operative note reviewed ID following - On IV vancomycin, monitor renal function PICC line in place - Pain control with IV morphine as needed, Toradol 15 IV every 6 hours, oral Holly as needed, oral Tylenol scheduled 650 every 6 hours monitor for sedation - Also on gabapentin 300 mg 3 times daily - Blood cultures and biopsy cultures no growth to date Hypertension Continue on lisinopril and hydrochlorothiazide 10-12 0.5 Continue metoprolol succinate 25 daily DVT ppx: CDs Code status: Full code Anticipated discharge place: Pending clinical course Anticipated discharge time: Pending clinical course Objective - Vital Signs Vital signs: Vital Signs Temp 97.6 F 06/22/23 14:14 Pulse 80 06/22/23 14:44 Resp 20 06/22/23 14:44 BP 154/64 06/22/23 14:44 Pulse Ox 97 06/22/23 14:44 FiO2 Intake & Output 06/21/23 06/22/23 06/22/23 18:59 06:59 18:59 Intake Total 1602 Output Total 900 Balance 702 Weight 73.48 kg Intake: IV 1602 Output: Urine 550 Estimated Blood Loss 350 Other: Voiding Method Toilet Toilet Toilet # Voids 4 3 - Labs CBC & Chem 7: 06/22/23 05:12 06/22/23 08:17 Labs: Abnormal Lab Results - Last 24 Hours (Table) 06/22/23 06/22/23 Range/Units 05:12 05:12 RBC 3.18 L (4.30-5.90) m/uL Hgb 10.2 L (13.0-17.5) gm/dL Hct 31.0 L (39.0-53.0) % Monocytes # 1.1 H (0-1.0) k/uL Potassium 5.3 H (3.5-5.1) mmol/L Creatinine 0.63 L (0.66-1.25) mg/dL Microbiology - Last 24 Hours (Table) 06/16/23 16:09 Blood Culture - Final Blood 06/16/23 15:50 Blood Culture - Final Blood 06/18/23 16:20 Anaerobic Culture - Preliminary Back 06/18/23 16:20 Anaerobic Culture - Preliminary Back
[2023-06-22] MEDS: TRANEXAMIC 1,000 MG/100ML-NACL 1,000 MG in SALINE 1 100ML.BAG IVPB ONE ×2 (15:45→15:51)
--- NOTE | 2023-06-22 15:56 | CT ---
EXAMINATION TYPE: CT lumbar spine wo con CT DLP: 968 mGycm, Automated exposure control for dose reduction was used. DATE OF EXAM: 06/22/2023 3:49 PM COMPARISON: 06/16/2023. CLINICAL INDICATION:Male, 68 years old with history of s/p L4-S1 decompr fusion; PHH, s/p L4-S1 decom pr fusion. TECHNIQUE: Multiple axial images were obtained from the midportion of T11 through the sacroiliac chris nts. Soft tissue and bone windows in coronal and sagittal planes were obtained and reviewed. 3-D ref ormats of the bones were created on a separate workstation and submitted for review. Contrast used: mL of , (None, if empty). Oral contrast used: (None, if empty). FINDINGS:Postsurgical changes to the lumbar spine with fixation hardware at L4, L5 and S1. Discectomy at L4-L5 and L5-S1. Hardware limits evaluation at these levels. Hardware appears intact. No evidence of fracture. Packing material seen in the posterior elements throughout the lower lumbar spine. Postsurgical changes in the soft tissues with foci of gas present. Drainage catheter with tubing in t he surgical bed. Posterior back skin ashli are present. Nonobstructing 2 mm renal calculi bilaterally. IMPRESSION: Postsurgical changes without evidence of immediate post operative complication.
[2023-06-22] MEDS: CYCLOBENZAPRINE 5 MG TAB PO PRN (16:03)
[2023-06-22] MEDS: HYDROmorphone 1 MG/ML 1 ML SYRINGE IVP PRN (16:03)
[2023-06-22] MEDS: ACETAMINOPHEN TAB 325 MG TAB PO SCH (17:41)
[2023-06-23] MEDS: HYDROmorphone 0.5 MG/0.5 ML SYRINGE IVP PRN (02:11)
[2023-06-23 04:48] LABS: African American GFR (CKD) >90 (>60 ml/min/1.73 sqM); Non-African American GFR(CKD) >90 (>60 ml/min/1.73 sqM)
[2023-06-23] MEDS: VANCOMYCIN TROUGH DUE 1 EACH MISC MISCELLANE ONE (05:16)
--- NOTE | 2023-06-23 07:31 | P.PN ---
Subjective Progress Note Date: 06/23/23 Principal diagnosis: 1. L5-S1 osteomyelitis discitis 2. 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 Left lower extremity weakness 4. Mechanical low back pain Patient seen and examined this morning. Patient is sitting upright in bed. He states he has been ambulatory since procedure and is tolerating activity well. He does report moderate low back pain, medications will be adjusted. Patient reports improvement in his low back and lower extremity pain and mobility since the procedure. Surgical incision to the lumbar spine, dressing is clean dry and intact. Hemovac present with 100 mL output overnight. Hernandez catheter may be discontinued this morning. Patient is very motivated with his activity level, patient may need reminder to take it easy. LSO brace is at bedside. Prescription for rolling walker has been provided. Continue to encourage patient to utilize incentive spirometer while awake. No acute concerns at this time. Objective - Vital Signs Vital signs: Vital Signs Temp 100.4 F H 06/23/23 02:14 Pulse 84 06/23/23 02:14 Resp 17 06/23/23 00:44 BP 158/61 06/23/23 00:44 Pulse Ox 95 06/23/23 02:14 FiO2 Intake & Output 06/22/23 06/22/23 06/23/23 06:59 18:59 06:59 Intake Total 1602 Output Total 980 720 Balance 622 -720 Weight 73.48 kg Intake: IV 1602 Output: Drainage 80 20 Right Lower Posterior 80 20 Back Urine 550 700 Estimated Blood Loss 350 Other: Voiding Method Toilet Toilet Indwelling Catheter # Voids 3 - Exam General: The patient is awake and alert, in no acute distress. Skin: Skin is warm and dry with no obvious rashes or lesions. Surgical incis ion to the lumbar spine, dressing is clean dry and intact. Hemovac is present with 100 mL output overnight. Eye: Pupils are equal, round and reactive to light, extra-ocular movements are intact; there is normal conjunctiva bilaterally. Neck: The neck is supple, there is no tenderness and ROM intact. Respiratory: Respirations are non-labored, breath sounds are equal. Gastrointestinal: Soft, non-distended, non-tender abdomen. Back: There is moderate tenderness to palpation in the midline lumbar region. There is no obvious deformity. Musculoskeletal: ROM limited secondary to pain. Bilateral upper extremities 5/5, Right lower extremity 4+/5, Left lower extremity knee flexor 4/5, ankle dorsiflexor 4/5, ankle plantarflexion 4-/5 and extensor hallucis 4-/5. Neurological: CN 2-12 intact. There are no obvious motor or sensory deficits. Movement and coordination equal and intact. Sensory exam to light touch intact C5-T1 and intact from L2-S1. Reflexes 2/4 in bilateral upper and lower extremities. Negative Hoffmans, babinski, and clonus signs. Psychiatric: Cooperative, appropriate mood & affect, normal judgment. - Labs CBC & Chem 7: 06/22/23 05:12 06/23/23 03:49 Labs: Abnormal Lab Results - Last 24 Hours (Table) 06/22/23 06/22/23 Range/Units 05:12 05:12 RBC 3.18 L (4.30-5.90) m/uL Hgb 10.2 L (13.0-17.5) gm/dL Hct 31.0 L (39.0-53.0) % Monocytes # 1.1 H (0-1.0) k/uL Potassium 5.3 H (3.5-5.1) mmol/L Creatinine 0.63 L (0.66-1.25) mg/dL Microbiology - Last 24 Hours (Table) 06/22/23 13:28 Gram Stain - Preliminary Other - Other 06/22/23 13:28 Gram Stain - Preliminary Other - Other 06/22/23 13:28 Gram Stain - Preliminary Back 06/16/23 16:09 Blood Culture - Final Blood 06/16/23 15:50 Blood Culture - Final Blood Assessment and Plan Assessment: -Postop day 1: L4-S1 decompression and fusion; Postop day 4: L5 and S1 ve rtebral body biopsy 1. L5-S1 osteomyelitis discitis 2. 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 Left lower extremity weakness 4. Mechanical low back pain Plan: -Appreciate senior financial consultant and team management. -Activity: Ambulate QID, OOB all meals, up and about, limit lifting bending twisting to less than 5 lbs. Use walker or cane if needed for stability. -Daily PT/OT, increase ambulation strength and balance. -Brace when up and about, not needed in bed or chair -Prescription for rolling walker has been provided. -Discontinue Hernandez catheter this morning. -Pain control: Medications have been adjusted -Meds: reviewed -GI ppx: senna, MOM -DVT PPX: Heparin, *JACKSON hose need to be applied, on during the day and off at night. -Hygiene: Keep incision clean and dry. -Drain: Continue to monitor and record output every shift. -Encourage IS 10x/hr -Dispo: Anticipate discharge home with home care in the next 48 hours. *I reviewed and discussed this case with my attending Dr. Hogan, whom has reviewed this chart and films and is in agreement with assessment and plan of care as outlined above. I have personally seen and examined the patient, performed the documentation and the assessment and plan as written. Number of minutes spent on the visit: 30m.
[2023-06-23 09:22] LABS: Basophils # (A) 0.07 X 10*3/uL (0.00-0.10); Basophils % (A) 0.8 %; Eosinophils # (A) 0.13 X 10*3/uL (0.04-0.35); Eosinophils % (A) 1.5 %; HCT 22.5 % (39.6-50.0); HGB 7.2 g/dL (13.0-17.0); Lymphocytes # (A) 1.54 X 10*3/uL (0.90-5.00); Lymphocytes % (A) 18.1 %; MCH 31.6 pg (27.0-32.0); MCV 98.7 FL (80.0-97.0); Mean Platelet Volume 9.1 FL (9.5-12.2); Monocytes # (A) 1.18 X 10*3/uL (0.20-1.00); Monocytes % (A) 13.8 %; NRBC Per 100 WBC 0 X 10*3/uL (0.00-0.01); Neutrophils # (A) 5.58 X 10*3/uL (1.80-7.70); Neutrophils % (A) 65.4 %; Platelet Count 248 X 10*3/uL (140-440); RBC 2.28 X 10*6/uL (4.40-5.60); RDW 15.5 % (11.5-14.5); WBC 8.53 X 10*3/uL (4.50-10.00)
[2023-06-23 10:14] LABS: BUN/Creat Ratio 9.22 Ratio (12.00-20.00); Blood Urea Nitrogen 8.3 mg/dL (9.0-27.0); Calcium 8.2 mg/dL (8.7-10.3); Carbon Dioxide 25.5 mmol/L (21.6-31.8); Chloride 100 mmol/L (96-109); Glucose 81 mg/dL (70-110); Potassium 3.9 mmol/L (3.5-5.5); Sodium 137 mmol/L (135-145)
[2023-06-23] MEDS: oxyCODONE-APAP 7.5-325MG 1 EACH TAB PO PRN (10:42)
[2023-06-23] MEDS: CYCLOBENZAPRINE 5 MG TAB PO SCH (10:43)
[2023-06-23] MEDS: SENNOSIDES-DOCUSATE SODIUM 1 EACH TAB PO SCH (10:43)
--- NOTE | 2023-06-23 13:21 | P.PN ---
Subjective Progress Note Date: 06/23/23 Hospital Course: 68-year-old male with history of hypertension, anxiety presenting from outpatient surgery office with concern for persistent low back pain of left leg pain for few months. Had outpatient MRI concerning for extensive osteomyelitis with discitis involving L5-S1. MRI shows L5-S1 discitis with L5-S1 osteomyelitis, no obvious epidural collection, epidural thickening redemonstrated. Paraspinal inflammatory changes noted. 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 Cervical and thoracic spine MRI shows acute discitis/osteomyelitis involving the inferior T7 vertebra through the superior T9 vertebra. Status post lumbar biopsy. Cultures no growth to date. Biopsy pending. Patient seen and examined at bedside. No acute events overnight. Pleasantly confused. Urinary catheter discontinued. Vitals Signs Reviewed. General: Nontoxic, no distress, appears at stated age Derm: Warm, dry, dressing, clean, dry, intact Head: Atraumatic, normocephalic, symmetric Eyes: EOMI, no lid lag, anicteric sclera Mouth: No lip lesion, mucus membranes moist Cardiovascular: S1S2 reg, no murmur Lungs: CTA bilateral, no rhonchi, no rales, no accessory muscle use Ext: 3/5 strength in left lower extremity, 4/5 strength in right lower extremity, 5/5 strength in bilateral upper extremities Neuro: no focal neuro deficits Psych: Alert, oriented, appropriate affect Data Reviewed Today: CBC Hg 7.2, Hct 22.5, MCV 98.7. BMP BUN 8.3, Ca 8.2. Vancomycin trough 21.2. Assessment and Plan: Discitis/osteomyelitis of thoracic and lumbosacral spine status post surgery -Operative note reviewed ID following - On IV vancomycin, monitor renal function PICC line in place - Pain control with IV morphine as needed, Toradol 15 IV every 6 hours, oral Casper as needed, oral Tylenol scheduled 650 every 6 hours monitor for sedation - Also on gabapentin 300 mg 3 times daily - Blood cultures and biopsy cultures no growth to date Acute blood loss anemia -Hg downtrending to 7.2. -Repeat CBC tomorrow. -Transfuse if Hg < 7. Hypertension Continue on lisinopril and hydrochlorothiazide 10-12 0.5 Continue metoprolol succinate 25 daily DVT ppx: CDs Code status: Full code Anticipated discharge place: Home Anticipated discharge time: Awaiting culture final results and ID recommendation of antibiotics Objective - Vital Signs Vital signs: Vital Signs Temp 100 F H 06/23/23 13:14 Pulse 88 06/23/23 13:14 Resp 16 06/23/23 13:14 BP 141/57 06/23/23 13:14 Pulse Ox 94 L 06/23/23 08:50 FiO2 Intake & Output 06/22/23 06/23/23 06/23/23 18:59 06:59 18:59 Intake Total 1602 0 Output Total 980 720 580 Balance 622 -720 -580 Weight 73.48 kg Intake: IV 1602 Blood Product 0 Rc As-1 Unit 0 [id number] Output: Drainage 80 20 80 Right Lower Posterior 80 20 80 Back Urine 550 700 500 Estimated Blood Loss 350 Other: Voiding Method Toilet Indwelling Catheter - Labs CBC & Chem 7: 06/23/23 03:49 06/23/23 03:49 Labs: Abnormal Lab Results - Last 24 Hours (Table) 06/22/23 06/23/23 06/23/23 Range/Units 08:33 03:49 03:49 RBC 2.28 L (4.40-5.60) X 10*6/uL Hgb 7.2 L (13.0-17.0) g/dL Hct 22.5 L (39.6-50.0) % MCV 98.7 H (80.0-97.0) FL RDW 15.5 H (11.5-14.5) % MPV 9.1 L (9.5-12.2) FL Monocytes # 1.18 H (0.20-1.00) X 10*3/uL BUN 8.3 L (9.0-27.0) mg/dL BUN/Creatinine Ratio 9.22 L (12.00-20.00) Ratio Calcium 8.2 L (8.7-10.3) mg/dL Crossmatch See Detail Microbiology - Last 24 Hours (Table) 06/18/23 16:20 Anaerobic Culture - Final Back 06/18/23 16:20 Anaerobic Culture - Final Back 06/22/23 13:28 Gram Stain - Preliminary Other - Other 06/22/23 13:28 Gram Stain - Preliminary Other - Other 06/22/23 13:28 Gram Stain - Preliminary Back
[2023-06-24] MEDS: MAGNESIUM HYDROXIDE 2,400 MG/30 ML CUP PO PRN (05:25)
[2023-06-24 06:12] LABS: HCT 29.3 % (39.0-53.0); HGB 9.1 gm/dL (13.0-17.5); MCH 30.6 pg (25.0-35.0); MCHC 31.1 g/dL (31.0-37.0); MCV 98.4 fL (80.0-100.0); Macrocytosis Slight; Mean Platelet Volume 7.2; Platelet Count 280 k/uL (150-450); RBC 2.98 m/uL (4.30-5.90); RDW 15.7 % (11.5-15.5)
[2023-06-24 06:31] LABS: African American GFR (CKD) >90 (>60 ml/min/1.73 sqM); Anion Gap 6 mmol/L; Blood Urea Nitrogen 11 mg/dL (9-20); Calcium 8.5 mg/dL (8.4-10.2); Carbon Dioxide 29 mmol/L (22-30); Chloride 105 mmol/L (98-107); Glucose 108 mg/dL (74-99); Non-African American GFR(CKD) >90 (>60 ml/min/1.73 sqM); Potassium 3.5 mmol/L (3.5-5.1); Sodium 140 mmol/L (137-145)
--- NOTE | 2023-06-24 12:22 | P.PN ---
Subjective Progress Note Date: 06/24/23 68-year-old male with history of hypertension, anxiety presenting from outpatient surgery office with concern for persistent low back pain of left leg pain for few months. Had outpatient MRI concerning for extensive osteomyelitis with discitis involving L5-S1. MRI shows L5-S1 discitis with L5-S1 osteo myelitis, no obvious epidural collection, epidural thickening redemonstrated. Paraspinal inflammatory changes noted. 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 Cervical and thoracic spine MRI shows acute discitis/osteomyelitis involving the inferior T7 vertebra through the superior T9 vertebra. Status post lumbar biopsy. Cultures no growth to date. Biopsy and wound culture pending. Patient seen and examined at bedside. No acute events overnight. Pain well management. Feels OK doing IV antibiotics at home. Cultures negative so far. CBC WBC 13, Hg 9.1, Hct 29.3. BMP glu 108. Maintained on Vancomycin dosed per pharmacy. General: Nontoxic, no distress, appears at stated age Derm: Warm, dry, dressing, clean, dry, intact Head: Atraumatic, normocephalic, symmetric Eyes: EOMI, no lid lag, anicteric sclera Mouth: No lip lesion, mucus membranes moist Cardiovascular: S1S2 reg, no murmur Lungs: CTA bilateral, no rhonchi, no rales, no accessory muscle use Ext: 3/5 strength in left lower extremity, 4/5 strength in right lower extremity, 5/5 strength in bilateral upper extremities Neuro: no focal neuro deficits Psych: Alert, oriented, appropriate affect Discitis/osteomyelitis of thoracic and lumbosacral spine status post surgery: Follow cultures. Blood cultures negative so far. Has PICC line in place. Vancomycin dosed per pharmacy. Rocephin 2g IV QD. Pain control with IV Dilaudid PRN per pain scale, Morphine 4 mg IV Q4H PRN severe pain, Percocet 7.5 mg PO Q4H PRN for pain, Tylenol scheduled 650 mg PO Q6H, Gabapentin 300 mg PO TID. Monitor renal function and trough. ID on board. Acute blood loss anemia: Repeat Hg 9.1. Transfuse if Hg < 7. Hypertension: Lisinopril-HCTZ 10-12.5 mg PO QD. Metoprolol 25 mg PO QD. CODE STATUS: FULL CODE DVT Prophylaxis:SCD GI Prophylaxis: Designated medical POA if patient is not able to make medical decisions for themselves: I have reviewed the following guidance consultant notes: Orthopedic Sx. I have reviewed the results of the following tests: CBC, BMP. I have ordered the following tests: CBC, BMP. I have discussed the care of this patient with the following independent histor abraham: Case management. I have independently interpreted the following test below: I have discussed the management of this patient with the following physician: Objective - Vital Signs Vital signs: Vital Signs Temp 98.5 F 06/24/23 07:10 Pulse 89 06/24/23 09:42 Resp 18 06/24/23 09:42 BP 147/67 06/24/23 07:10 Pulse Ox 94 L 06/24/23 08:17 FiO2 Intake & Output 06/23/23 06/24/23 06/24/23 18:59 06:59 18:59 Intake Total 310 Output Total 920 60 Balance -610 -60 Intake: Blood Product 310 Rc As-1 Unit 310 [id number] Output: Drainage 320 60 Right Lower Posterior 320 60 Back Urine 600 Other: Voiding Method Toilet Toilet Urinal Urinal # Voids 1 - Labs CBC & Chem 7: 06/24/23 05:40 06/24/23 05:40 Labs: Abnormal Lab Results - Last 24 Hours (Table) 06/22/23 06/24/23 06/24/23 Range/Units 08:33 05:40 05:40 WBC 13.0 H (3.8-10.6) k/uL RBC 2.98 L (4.30-5.90) m/uL Hgb 9.1 L (13.0-17.5) gm/dL Hct 29.3 L (39.0-53.0) % RDW 15.7 H (11.5-15.5) % Glucose 108 H (74-99) mg/dL Crossmatch See Detail Microbiology - Last 24 Hours (Table) 06/22/23 13:28 Gram Stain - Preliminary Back Wound Culture - Preliminary 06/22/23 13:28 Gram Stain - Preliminary Other - Other Wound Culture - Preliminary 06/22/23 13:28 Gram Stain - Preliminary Other - Other Wound Culture - Preliminary 06/18/23 16:20 Anaerobic Culture - Final Back 06/18/23 16:20 Anaerobic Culture - Final Back
--- NOTE | 2023-06-24 14:15 | P.PN ---
Subjective Progress Note Date: 06/24/23 Principal diagnosis: 1. L5-S1 osteomyelitis discitis 2. 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 Left lower extremity weakness 4. Mechanical low back pain Patient seen and examined this morning. Patient is resting comfortably in bed. Patient does report increased pain with activity. Surgical incision to the lumbar spine, edges are well-approximated with ashli intact. Hemovac drain has been removed and new surgical dressing applied. Patient reports that he is tolerating activity well with physical therapy. Patient reports that he does have decreased pain in his lower extremities and states that he feels stronger in his mobility. Patient is progressing well towards discharge. Anticipate discharge within the next 24 hours. No acute concerns. Objective - Vital Signs Vital signs: Vital Signs Temp 98.7 F 06/24/23 03:21 Pulse 74 06/24/23 03:21 Resp 16 06/24/23 03:21 BP 131/60 06/24/23 03:21 Pulse Ox 95 06/24/23 03:21 FiO2 Intake & Output 06/23/23 06/24/23 06/24/23 18:59 06:59 18:59 Intake Total 310 Output Total 920 60 Balance -610 -60 Intake: Blood Product 310 Rc As-1 Unit 310 [id number] Output: Drainage 320 60 Right Lower Posterior 320 60 Back Urine 600 Other: Voiding Method Toilet Urinal # Voids 1 - Exam General: The patient is awake and alert, in no acute distress. Skin: Skin is warm and dry with no obvious rashes or lesions. Surgical incision to the lumbar spine, edges are well-approximated with ashli intact. Hemovac drain has been removed and new surgical dressing has been applied. Eye: Pupils are equal, round and reactive to light, extra-ocular movements are intact; there is normal conjunctiva bilaterally. Neck: The neck is supple, there is no tenderness and ROM intact. Respiratory: Respirations are non-labored, breath sounds are equal. Gastrointestinal: Soft, non-distended, non-tender abdomen. Back: There is moderate tenderness to palpation in the midline lumbar region. There is no obvious deformity. Musculoskeletal: ROM limited secondary to pain. Bilateral upper extremities 5/5, Right lower extremity 4+/5, Left lower extremity knee flexor 4/5, ankle dorsiflexor 4/5, ankle plantarflexion 4-/5 and extensor hallucis 4-/5. Neurological: CN 2-12 intact. There are no obvious motor or sensory deficits. Movement and coordination equal and intact. Sensory exam to light touch intact C5-T1 and intact from L2-S1. Reflexes 2/4 in bilateral upper and lower extremities. Negative Hoffmans, babinski, and clonus signs. Psychiatric: Cooperative, appropriate mood & affect, normal judgment. - Labs CBC & Chem 7: 06/24/23 05:40 06/24/23 05:40 Labs: Abnormal Lab Results - Last 24 Hours (Table) 06/22/23 06/23/23 06/23/23 Range/Units 08:33 03:49 03:49 WBC (3.8-10.6) k/uL RBC 2.28 L (4.40-5.60) X 10*6/uL Hgb 7.2 L (13.0-17.0) g/dL Hct 22.5 L (39.6-50.0) % MCV 98.7 H (80.0-97.0) FL RDW 15.5 H (11.5-14.5) % MPV 9.1 L (9.5-12.2) FL Monocytes # 1.18 H (0.20-1.00) X 10*3/uL BUN 8.3 L (9.0-27.0) mg/dL BUN/Creatinine Ratio 9.22 L (12.00-20.00) Ratio Glucose (74-99) mg/dL Calcium 8.2 L (8.7-10.3) mg/dL Crossmatch See Detail 06/24/23 06/24/23 Range/Units 05:40 05:40 WBC 13.0 H (3.8-10.6) k/uL RBC 2.98 L (4.40-5.60) X 10*6/uL Hgb 9.1 L (13.0-17.0) g/dL Hct 29.3 L (39.6-50.0) % MCV (80.0-97.0) FL RDW 15.7 H (11.5-14.5) % MPV (9.5-12.2) FL Monocytes # (0.20-1.00) X 10*3/uL BUN (9.0-27.0) mg/dL BUN/Creatinine Ratio (12.00-20.00) Ratio Glucose 108 H (74-99) mg/dL Calcium (8.7-10.3) mg/dL Crossmatch Microbiology - Last 24 Hours (Table) 06/22/23 13:28 Gram Stain - Preliminary Back Wound Culture - Preliminary 06/22/23 13:28 Gram Stain - Preliminary Other - Other Wound Culture - Preliminary 06/22/23 13:28 Gram Stain - Preliminary Other - Other Wound Culture - Preliminary 06/18/23 16:20 Anaerobic Culture - Final Back 06/18/23 16:20 Anaerobic Culture - Final Back Assessment and Plan Assessment: -Postop day 2: L4-S1 decompression and fusion; Postop day 5: L5 and S1 vertebral body biopsy 1. L5-S1 osteomyelitis discitis 2. 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 Left lower extremity weakness 4. Mechanical low back pain Plan: -Appreciate business management consultant and team management. -Activity: Ambulate QID, OOB all meals, up and about, limit lifting bending twisting to less than 5 lbs. Use walker or cane if needed for stability. -Daily PT/OT, increase ambulation strength and balance. -Brace when up and about, not needed in bed or chair -Pain control: Medications have been adjusted -Meds: reviewed -GI ppx: senna, MOM -DVT PPX: Heparin, *JACKSON hose need to be applied, on during the day and off at night. -Hygiene: Keep incision clean and dry. -Encourage IS 10x/hr -Dispo: Anticipate discharge home with home care in the next 24 hours. *I reviewed and discussed this case with my attending Dr. Hogan, whom has reviewed this chart and films and is in agreement with assessment and plan of care as outlined above. I have personally seen and examined the patient, performed the documentation and the assessment and plan as written. Number of minutes spent on the visit: 30m.
[2023-06-24] MEDS: CYCLOBENZAPRINE 5 MG TAB PO SCH (15:55)
[2023-06-24] MEDS: VANCOMYCIN 1,250 MG in SODIUM CHLORIDE 0.9% 250 ML IVPB SCH (16:58)
[2023-06-24] MEDS: HEPARIN SODIUM,PORCINE 5,000 UNIT/ML 1 ML VIAL SQ SCH (21:04)
--- NOTE | 2023-06-25 07:47 | P.PN ---
Subjective Progress Note Date: 06/22/23 Principal diagnosis: Reason for follow-up is abnormal MRI with a question of discitis/osteomyelitis Patient is a 68-year-old male with no significant past medical history however the patient did have a fall around Thanksgiving since then the patient has been dealing with the lower back pain with recent outpatient MRI suspicious for discitis/osteomyelitis for which the patient has been admitted to the hospital. Patient is status post L5-S1 and short disc osteotomy discectomy phlegmon evaluation along with L4-5 and L5-S1 bilateral laminectomy facetectomy and foraminotomy antibiotic cement placement as well as screw placement procedure completed on 06/22/2023. On today's evaluation that is 06/22/2023,the patient remains to be afebrile, patient is on room air not requiring supplemental oxygen patient is slightly confused postprocedure however denies any chest pain no vomiting or diarrhea reported by the nursing staff Patient white count is down to 10.4, creatinine 0.63 Objective - Vital Signs Vital signs: Vital Signs Temp 97.8 F 06/22/23 09:25 Pulse 62 06/22/23 09:25 Resp 18 06/22/23 09:25 BP 178/75 06/22/23 09:25 Pulse Ox 97 06/22/23 09:25 FiO2 Intake & Output 06/21/23 06/22/23 06/22/23 18:59 06:59 18:59 Intake Total 1302 Output Total 900 Balance 402 Weight 73.48 kg Intake: IV 1302 Output: Urine 550 Estimated Blood Loss 350 Other: Voiding Method Toilet Toilet Toilet # Voids 4 3 - Exam GENERAL DESCRIPTION: An elderly male lying in bed in no distress RESPIRATORY SYSTEM: Unlabored breathing , decreased breath sounds at bases HEART: S1 S2 regular rate and rhythm , ABDOMEN: Soft , no tenderness EXTREMITIES: No edema feet - Labs CBC & Chem 7: 06/24/23 05:40 06/24/23 05:40 Labs: Abnormal Lab Results - Last 24 Hours (Table) 06/22/23 06/22/23 Range/Units 05:12 05:12 RBC 3.18 L (4.30-5.90) m/uL Hgb 10.2 L (13.0-17.5) gm/dL Hct 31.0 L (39.0-53.0) % Monocytes # 1.1 H (0-1.0) k/uL Potassium 5.3 H (3.5-5.1) mmol/L Creatinine 0.63 L (0.66-1.25) mg/dL Microbiology - Last 24 Hours (Table) 06/16/23 16:09 Blood Culture - Final Blood 06/16/23 15:50 Blood Culture - Final Blood 06/18/23 16:20 Anaerobic Culture - Preliminary Back 06/18/23 16:20 Anaerobic Culture - Preliminary Back Assessment and Plan (1) Discitis Current Visit: Yes Status: Acute Code(s): M46.40 - DISCITIS, UNSPECIFIED, SITE UNSPECIFIED SNOMED Code(s): 2056114 (2) Osteomyelitis of lumbar spine Current Visit: Yes Status: Acute Code(s): M46.26 - OSTEOMYELITIS OF VERTEBRA, LUMBAR REGION SNOMED Code(s): 611136598 Plan: 1patient presented to hospital with chronic pain to the lower back area and this patient has been diagnosed with osteomyelitis discitis involving L5-S1 area patient did have a history of trauma but no history of any fever or any chills and did have normal sed rate 2 patient with multiple antibiotic ALLERGIES that would limit the number of antibiotic safe to use 3-patient is status post extensive surgery to L5-S1 area including evacuation of phlegmon culture has been obtained and results will be followed patient is covered with vancomycin Dictation was produced using [employer] dictation software. please excuse any grammatical, word or spelling errors. Time with Patient: Less than 30
--- NOTE | 2023-06-25 07:48 | P.PN ---
Subjective Progress Note Date: 06/23/23 Principal diagnosis: Reason for follow-up is abnormal MRI with a question of discitis/osteomyelitis Patient is a 68-year-old male with no significant past medical history however the patient did have a fall around Thanksgiving since then the patient has been dealing with the lower back pain with recent outpatient MRI suspicious for discitis/osteomyelitis for which the patient has been admitted to the hospital. Patient is status post L5-S1 and short disc osteotomy discectomy phlegmon evaluation along with L4-5 and L5-S1 bilateral laminectomy facetectomy and foraminotomy antibiotic cement placement as well as screw placement procedure completed on 06/22/2023. On today's evaluation that is 06/23/2023, the patient continues to be afebrile, the patient is on room air and breathing comfortably, the Pt denies having any chest pain or cough, the patient denies having any abdominal pain no vomiting or any diarrhea denies any worsening lower back pain Patient white count is 8.53, creatinine 0.77 Objective - Vital Signs Vital signs: Vital Signs Temp 98.4 F 06/23/23 08:24 Pulse 97 06/23/23 08:24 Resp 18 06/23/23 08:24 BP 123/63 06/23/23 08:24 Pulse Ox 94 L 06/23/23 08:50 FiO2 Intake & Output 06/22/23 06/23/23 06/23/23 18:59 06:59 18:59 Intake Total 1602 Output Total 980 720 580 Balance 622 -720 -580 Weight 73.48 kg Intake: IV 1602 Output: Drainage 80 20 80 Right Lower Posterior 80 20 80 Back Urine 550 700 500 Estimated Blood Loss 350 Other: Voiding Method Toilet Indwelling Catheter - Exam GENERAL DESCRIPTION: An elderly male lying in bed in no distress RESPIRATORY SYSTEM: Unlabored breathing , decreased breath sounds at bases HEART: S1 S2 regular rate and rhythm , ABDOMEN: Soft , no tenderness EXTREMITIES: No edema feet - Labs CBC & Chem 7: 06/24/23 05:40 06/24/23 05:40 Labs: Abnormal Lab Results - Last 24 Hours (Table) 06/22/23 06/23/23 06/23/23 Range/Units 08:33 03:49 03:49 RBC 2.28 L (4.40-5.60) X 10*6/uL Hgb 7.2 L (13.0-17.0) g/dL Hct 22.5 L (39.6-50.0) % MCV 98.7 H (80.0-97.0) FL RDW 15.5 H (11.5-14.5) % MPV 9.1 L (9.5-12.2) FL Monocytes # 1.18 H (0.20-1.00) X 10*3/uL BUN 8.3 L (9.0-27.0) mg/dL BUN/Creatinine Ratio 9.22 L (12.00-20.00) Ratio Calcium 8.2 L (8.7-10.3) mg/dL Crossmatch See Detail Microbiology - Last 24 Hours (Table) 06/18/23 16:20 Anaerobic Culture - Final Back 06/18/23 16:20 Anaerobic Culture - Final Back 06/22/23 13:28 Gram Stain - Preliminary Other - Other 06/22/23 13:28 Gram Stain - Preliminary Other - Other 06/22/23 13:28 Gram Stain - Preliminary Back Assessment and Plan (1) Discitis Current Visit: Yes Status: Acute Code(s): M46.40 - DISCITIS, UNSPECIFIED, SITE UNSPECIFIED SNOMED Code(s): 9150454 (2) Osteomyelitis of lumbar spine Current Visit: Yes Status: Acute Code(s): M46.26 - OSTEOMYELITIS OF VERTEBRA, LUMBAR REGION SNOMED Code(s): 677010348 Plan: 1patient presented to hospital with chronic pain to the lower back area and this patient has been diagnosed with osteomyelitis discitis involving L5-S1 area patient did have a history of trauma but no history of any fever or any chills and did have normal sed rate 2 patient with multiple antibiotic ALLERGIES that would limit the number of antibiotic safe to use 3-patient is status post extensive surgery to L5-S1 area including evacuation of phlegmon culture has been obtained which are currently pending patient is covered with the vancomycin while watching his trough closely add Rocephin Dictation was produced using [employer] dictation software. please excuse any grammatical, word or spelling errors. Time with Patient: Less than 30
--- NOTE | 2023-06-25 07:54 | P.PN ---
Subjective Progress Note Date: 06/24/23 Principal diagnosis: Reason for follow-up is abnormal MRI with a question of discitis/osteomyelitis Patient is a 68-year-old male with no significant past medical history however the patient did have a fall around Thanksgiving since then the patient has been dealing with the lower back pain with recent outpatient MRI suspicious for discitis/osteomyelitis for which the patient has been admitted to the hospital. Patient is status post L5-S1 and short disc osteotomy discectomy phlegmon evaluation along with L4-5 and L5-S1 bilateral laminectomy facetectomy and foraminotomy antibiotic cement placement as well as screw placement procedure completed on 06/22/2023. On today's evaluation that is 06/24/2023, Patient is afebrile patient is currently on room air and denies having any shortness of breath, the patient denies any chest pain or cough, the patient denies any nausea vomiting did not have any abdominal pain and no diarrhea, pain to the lower back is slightly decreased in intensity mention feeling slightly better. Patient white count is 13,000, creatinine 0.77 Objective - Vital Signs Vital signs: Vital Signs Temp 98.5 F 06/24/23 07:10 Pulse 89 06/24/23 09:42 Resp 18 06/24/23 09:42 BP 147/67 06/24/23 07:10 Pulse Ox 94 L 06/24/23 08:17 FiO2 Intake & Output 06/23/23 06/24/23 06/24/23 18:59 06:59 18:59 Intake Total 310 Output Total 920 60 Balance -610 -60 Intake: Blood Product 310 Rc As-1 Unit 310 [id number] Output: Drainage 320 60 Right Lower Posterior 320 60 Back Urine 600 Other: Voiding Method Toilet Toilet Urinal Urinal # Voids 1 - Exam GENERAL DESCRIPTION: An elderly male lying in bed in no distress RESPIRATORY SYSTEM: Unlabored breathing , decreased breath sounds at bases HEART: S1 S2 regular rate and rhythm , ABDOMEN: Soft , no tenderness EXTREMITIES: No edema feet - Labs CBC & Chem 7: 06/24/23 05:40 06/24/23 05:40 Labs: Abnormal Lab Results - Last 24 Hours (Table) 06/22/23 06/24/23 06/24/23 Range/Units 08:33 05:40 05:40 WBC 13.0 H (3.8-10.6) k/uL RBC 2.98 L (4.30-5.90) m/uL Hgb 9.1 L (13.0-17.5) gm/dL Hct 29.3 L (39.0-53.0) % RDW 15.7 H (11.5-15.5) % Glucose 108 H (74-99) mg/dL Crossmatch See Detail Microbiology - Last 24 Hours (Table) 06/22/23 13:28 Gram Stain - Preliminary Back Wound Culture - Preliminary 06/22/23 13:28 Gram Stain - Preliminary Other - Other Wound Culture - Preliminary 06/22/23 13:28 Gram Stain - Preliminary Other - Other Wound Culture - Preliminary 06/18/23 16:20 Anaerobic Culture - Final Back 06/18/23 16:20 Anaerobic Culture - Final Back Assessment and Plan (1) Discitis Current Visit: Yes Status: Acute Code(s): M46.40 - DISCITIS, UNSPECIFIED, SITE UNSPECIFIED SNOMED Code(s): 4757295 (2) Osteomyelitis of lumbar spine Current Visit: Yes Status: Acute Code(s): M46.26 - OSTEOMYELITIS OF VERTEBRA, LUMBAR REGION SNOMED Code(s): 194736184 Plan: 1patient presented to hospital with chronic pain to the lower back area and this patient has been diagnosed with osteomyelitis discitis involving L5-S1 area patient did have a history of trauma but no history of any fever or any chills and did have normal sed rate 2 patient with multiple antibiotic ALLERGIES that would limit the number of antibiotic safe to use 3-patient is status post extensive surgery to L5-S1 area including evacuation of phlegmon culture has been obtained which are currently pending patient is covered with the vancomycin and Rocephin plan will be for 6-week course of IV antibiotic therapy Dictation was produced using [employer] dictation software. please excuse any grammatical, word or spelling errors. Time with Patient: Less than 30
[2023-06-25] MEDS ORDERED: CYCLOBENZAPRINE 5 MG TAB PO PRN (08:03)
[2023-06-25 08:08] LABS: African American GFR (CKD) >90 (>60 ml/min/1.73 sqM); Anion Gap 6 mmol/L; Blood Urea Nitrogen 11 mg/dL (9-20); Calcium 8.2 mg/dL (8.4-10.2); Carbon Dioxide 24 mmol/L (22-30); Chloride 104 mmol/L (98-107); Glucose 85 mg/dL (74-99); Non-African American GFR(CKD) 89 (>60 ml/min/1.73 sqM); Potassium 3.9 mmol/L (3.5-5.1); Sodium 134 mmol/L (137-145)
--- NOTE | 2023-06-25 08:24 | P.PN ---
Subjective Progress Note Date: 06/25/23 Principal diagnosis: 1. L5-S1 osteomyelitis discitis 2. 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 Left lower extremity weakness 4. Mechanical low back pain Patient seen and examined this morning. Patient is sitting up in chair. He is moderately confused this morning, he is able to answer direct questions although he starts to have flight of idea conversation. CT of the brain has been ordered and medications have been adjusted. Surgical dressing to the lumbar spine is clean dry and intact, mild shadowing noted. Patient has been ambulatory with rolling walker, tolerating activity well. Medical physician has been notified of altered mental status. We will continue to monitor. Objective - Vital Signs Vital signs: Vital Signs Temp 98.6 F 06/25/23 03:17 Pulse 80 06/25/23 03:17 Resp 14 06/25/23 03:17 BP 121/63 06/25/23 03:17 Pulse Ox 92 L 06/25/23 03:17 FiO2 Intake & Output 06/24/23 06/25/23 06/25/23 18:59 06:59 18:59 Intake Total 300 250 Output Total 200 Balance 100 250 Intake: Intake, IV Titration 250 Amount Vancomycin 1,250 mg In 250 Sodium Chloride 0.9% 250 ml @ 125 mls/hr IVPB Q12H COUNT INCLUDES THE [facility] Rx#:[id number] Oral 300 Output: Urine 200 Other: Voiding Method Toilet Toilet Urinal Urinal # Voids 2 2 - Exam General: The patient is awake and alert, in no acute distress. Skin: Skin is warm and dry with no obvious rashes or lesions. Surgical incision to the lumbar spine, surgical dressing is clean dry and intact, mild shadowing noted. Eye: Pupils are equal, round and reactive to light, extra-ocular movements are intact; there is normal conjunctiva bilaterally. Neck: The neck is supple, there is no tenderness and ROM intact. Respiratory: Respirations are non-labored, breath sounds are equal. Gastrointestinal: Soft, non-distended, non-tender abdomen. Back: There is moderate tenderness to palpation in the midline lumbar region. There is no obvious deformity. Musculoskeletal: ROM limited secondary to pain. Bilateral upper extremities 5/5, Right lower extremity 4+/5, Left lower extremity knee flexor 4/5, ankle dorsiflexor 4/5, ankle plantarflexion 4-/5 and extensor hallucis 4-/5. Neurological: CN 2-12 intact. There are no obvious motor or sensory deficits. Movement and coordination equal and intact. Sensory exam to light touch intact C5-T1 and intact from L2-S1. Reflexes 2/4 in bilateral upper and lower extremities. Negative Hoffmans, babinski, and clonus signs. Psychiatric: Cooperative, appropriate mood & affect, normal judgment. - Labs CBC & Chem 7: 06/24/23 05:40 06/25/23 06:53 Labs: Microbiology - Last 24 Hours (Table) 06/22/23 13:28 Anaerobic Culture - Preliminary Other - Other 06/22/23 13:28 Anaerobic Culture - Preliminary Other - Other 06/22/23 13:28 Anaerobic Culture - Preliminary Other - Other 06/22/23 13:28 Gram Stain - Final Back Wound Culture - Final 06/22/23 13:28 Gram Stain - Final Other - Other Wound Culture - Final 06/22/23 13:28 Gram Stain - Final Other - Other Wound Culture - Final Assessment and Plan Assessment: -Postop day 3: L4-S1 decompression and fusion; Postop day 6: L5 and S1 vertebral body biopsy 1. L5-S1 osteomyelitis discitis 2. 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 Left lower extremity weakness 4. Mechanical low back pain Plan: -Appreciate beauty sales consultant and team management. -CT of the brain has been ordered due to altered mental status, awaiting results. -Gabapentin has been discontinued and Flexeril has been ordered as needed and dosing reduced to 5 mg -Activity: Ambulate QID, OOB all meals, up and about, limit lifting bending twisting to less than 5 lbs. Use walker or cane if needed for stability. -Daily PT/OT, increase ambulation strength and balance. -Brace when up and about, not needed in bed or chair -Pain control: Medications have been adjusted -Meds: reviewed -GI ppx: senna, MOM -DVT PPX: Heparin, *JACKSON hose need to be applied, on during the day and off at night. -Hygiene: Keep incision clean and dry. -Encourage IS 10x/hr -Dispo: Clinically pending *I reviewed and discussed this case with my attending Dr. Hogan, whom has reviewed this chart and films and is in agreement with assessment and plan of care as outlined above. I have personally seen and examined the patient, performed the documentation and the assessment and plan as written. Number of minutes spent on the visit: 30m.
[2023-06-25] MEDS: SODIUM CHLORIDE 0.9% 1,000 ML IV SCH (09:20)
--- NOTE | 2023-06-25 10:02 | CT ---
EXAMINATION TYPE: CT brain wo con CT DLP: 1116.50 mGycm, Automated exposure control for dose reduction was used. DATE OF EXAM: 06/25/2023 9:51 AM COMPARISON: 06/17/2023 . CLINICAL INDICATION:Male, 68 years old with history of Change in mental status, Change in mental stat us TECHNIQUE: Brain: Axial CT images of the brain were obtained with coronal and sagittal reformats created and rev iewed. Contrast used: None. Oral contrast used: None. FINDINGS: Brain: Extra-axial spaces: No abnormal extra-axial fluid collections. Ventricular system: Dilatation in proportion to cerebral atrophy. Cerebral parenchyma: Cerebral atrophy. No acute intraparenchymal hemorrhage or mass effect. The sharp -white junction is well differentiated. Scattered hypoattenuating areas are seen within the white mat ter. Cerebellum: Unremarkable. Mass effect: No evidence of midline shift. Intracranial vasculature: unremarkable Soft tissues: Normal. Calvarium/osseous structures: No depressed skull fracture. Paranasal sinuses and mastoid air cells: Mild scattered paranasal sinus disease. Visualized orbits: Orbital contents are intact. IMPRESSION: 1. No acute intracranial process. 2. Nonspecific white matter changes, likely secondary to chronic small vessel ischemic disease.
[2023-06-25 10:15] LABS: HCT 25.4 % (39.0-53.0); HGB 8.1 gm/dL (13.0-17.5); MCH 31.8 pg (25.0-35.0); MCHC 31.9 g/dL (31.0-37.0); MCV 99.5 fL (80.0-100.0); Macrocytosis Slight; Mean Platelet Volume 7.2; Platelet Count 268 k/uL (150-450); RBC 2.56 m/uL (4.30-5.90); RDW 15.6 % (11.5-15.5)
--- NOTE | 2023-06-25 10:45 | XR ---
EXAMINATION TYPE: XR chest 1V portable DATE OF EXAM: 06/25/2023 9:46 AM CLINICAL INDICATION:Male, 68 years old with history of sepsis; [facility] COMPARISON: None TECHNIQUE: XR chest 1V portable Frontal view of the chest. FINDINGS: Lungs/Pleura: There is no evidence of pleural effusion, focal consolidation, or pneumothorax. Pulmonary vascularity: Unremarkable. Heart/mediastinum: Cardiomediastinal silhouette is unremarkable. Musculoskeletal: No acute osseous pathology. Left PICC with tip in appropriate position. IMPRESSION: No acute cardiopulmonary disease/process.
[2023-06-25] MEDS ORDERED: MORPHINE SULFATE 2 MG/ML SYRINGE IV PRN (11:58)
--- NOTE | 2023-06-25 12:03 | P.PN ---
Subjective Progress Note Date: 06/25/23 68-year-old male with history of hypertension, anxiety presenting from outpatient surgery office with concern for persistent low back pain of left leg pain for few months. Had outpatient MRI concerning for extensive osteomyelitis with discitis involving L5-S1. MRI shows L5-S1 discitis with L5-S1 osteo myelitis, no obvious epidural collection, epidural thickening redemonstrated. Paraspinal inflammatory changes noted. 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 Cervical and thoracic spine MRI shows acute discitis/osteomyelitis involving the inferior T7 vertebra through the superior T9 vertebra. Status post lumbar biopsy. Cultures no growth to date. Biopsy and wound culture pending. 06/23 Patient seen and examined at bedside. No acute events overnight. Pain well management. Feels OK doing IV antibiotics at home. Cultures negative so far. CBC WBC 13, Hg 9.1, Hct 29.3. BMP glu 108. Maintained on Vancomycin dosed per pharm acy. 06/24 Patient was seen and examined. Discussed with RN, patient was very confused last night and this morning, noted to be eating tissue, fell this morning after trying to reach for it on the ground. Also noted to have Tmax of 101.2F. CT head ordered which showed no acute process. CXR ordered which was negative. Blood culture and UA with reflex to UCx ordered. He is maintained on Vancomycin and Rocephin. CBC WBC 13, Hg 8.1, Hct 25.4. General: Nontoxic, no distress, appears at stated age Derm: Warm, dry, dressing, clean, dry, intact Head: Atraumatic, normocephalic, symmetric Eyes: EOMI, no lid lag, anicteric sclera Mouth: No lip lesion, mucus membranes moist Cardiovascular: S1S2 reg, no murmur Lungs: CTA bilateral, no rhonchi, no rales, no accessory muscle use Ext: 3/5 strength in left lower extremity, 4/5 strength in right lower extremity, 5/5 strength in bilateral upper extremities Neuro: no focal neuro deficits Psych: Alert, oriented x 2 Acute metabolic encephalopathy: Likely hospital delirium worsened with pain medications. Dilaudid discontinued. Flexeril, Xanax and Gabapentin discontinued. CT head negative. Frequent re-direction. Fall precautions. Sepsis due to osteomyelitis of thoracic and lumbosacral spine status post surgery: Follow cultures. Initial blood cultures negative so far. Repeat BCx ordered for fever on 06/24. Has PICC line in place. Vancomycin dosed per pharmacy. Rocephin 2g IV QD. Pain control with IV Morphine 2 mg IV Q4H PRN severe pain, Percocet 7.5 mg PO Q4H PRN for pain, Tylenol scheduled 650 mg PO Q6H, Flexeril 5 mg PO TID PRN. Monitor renal function and trough. ID on board. Acute blood loss anemia: Repeat Hg 8.1. Transfuse if Hg < 7. Hypertension: Lisinopril-HCTZ 10-12.5 mg on hold. Metoprolol 25 mg PO QD. CODE STATUS: FULL CODE DVT Prophylaxis:SCD GI Prophylaxis: Designated medical POA if patient is not able to make medical decisions for themselves: I have reviewed the following acquisition consultant notes: Orthopedic Sx. I have reviewed the results of the following tests: CBC. CT head I have ordered the following tests: Repeat BCx 06/24. I have discussed the care of this patient with the following independent historian: Case management. RN I have independently interpreted the following test below: CXR I have discussed the management of this patient with the following physician: Objective - Vital Signs Vital signs: Vital Signs Temp 99.0 F 06/25/23 09:07 Pulse 86 06/25/23 09:07 Resp 20 06/25/23 11:40 BP 103/51 06/25/23 09:07 Pulse Ox 93 L 06/25/23 09:07 FiO2 Intake & Output 06/24/23 06/25/23 06/25/23 18:59 06:59 18:59 Intake Total 300 250 Output Total 200 Balance 100 250 Intake: Intake, IV Titration 250 Amount Vancomycin 1,250 mg In 250 Sodium Chloride 0.9% 250 ml @ 125 mls/hr IVPB Q12H [facility] Rx#:[id number] Oral 300 Output: Urine 200 Other: Voiding Method Toilet Toilet Toilet Urinal Urinal Urinal # Voids 2 2 1 - Labs CBC & Chem 7: 06/25/23 09:51 06/25/23 06:53 Labs: Abnormal Lab Results - Last 24 Hours (Table) 06/25/23 06/25/23 Range/Units 06:53 09:51 WBC 13.0 H (3.8-10.6) k/uL RBC 2.56 L (4.30-5.90) m/uL Hgb 8.1 L (13.0-17.5) gm/dL Hct 25.4 L (39.0-53.0) % RDW 15.6 H (11.5-15.5) % Sodium 134 L (137-145) mmol/L Calcium 8.2 L (8.4-10.2) mg/dL Microbiology - Last 24 Hours (Table) 06/22/23 13:28 Anaerobic Culture - Preliminary Other - Other 06/22/23 13:28 Anaerobic Culture - Preliminary Other - Other 06/22/23 13:28 Anaerobic Culture - Preliminary Other - Other 06/22/23 13:28 Gram Stain - Final Back Wound Culture - Final 06/22/23 13:28 Gram Stain - Final Other - Other Wound Culture - Final 06/22/23 13:28 Gram Stain - Final Other - Other Wound Culture - Final
[2023-06-25 16:04] LABS: Appearance,Urine Cloudy (Clear); Bacteria,Urine Occasional /hpf; Bilirubin,Urine Negative (Negative); Blood,Urine Trace (Negative); Color,Urine Light Yellow; Glucose,Urine (UA) Negative (Negative); Ketones,Urine Negative (Negative); Leukocyte Esterase,Urine Negative (Negative); Mucus,Urine Rare /hpf; Nitrite,Urine Negative (Negative); Protein,Urine Trace (Negative); RBC,Urine 1 /hpf (0-5); Squamous Epithelial Cell,Urine <1 /hpf (0-4); Urobilinogen,Urine <2.0 mg/dL (<2.0); WBC,Urine <1 /hpf (0-5)
[2023-06-26] MEDS: QUEtiapine 50 MG TAB PO STA (01:27)
[2023-06-26] MEDS: VANCOMYCIN TROUGH DUE 1 EACH MISC MISCELLANE ONE (03:30)
--- NOTE | 2023-06-26 07:56 | P.PN ---
Subjective Progress Note Date: 06/25/23 Principal diagnosis: Reason for follow-up is abnormal MRI with a question of discitis/osteomyelitis Patient is a 68-year-old male with no significant past medical history however the patient did have a fall around Thanksgiving since then the patient has been dealing with the lower back pain with recent outpatient MRI suspicious for discitis/osteomyelitis for which the patient has been admitted to the hospital. Patient is status post L5-S1 and short disc osteotomy discectomy phlegmon evaluation along with L4-5 and L5-S1 bilateral laminectomy facetectomy and foraminotomy antibiotic cement placement as well as screw placement procedure completed on 06/22/2023. On today's evaluation that is 06/25/2023, patient did spike a fever of 101.2 F this morning, the patient is breathing comfortably on room air denies any chest pain shortness of breath or cough or any worsening back pain no nausea vomiting abdominal pain or diarrhea. Patient white count of 13,000 creatinine 0.88 OR cultures are currently pending Objective - Vital Signs Vital signs: Vital Signs Temp 99.0 F 06/25/23 09:07 Pulse 86 06/25/23 09:07 Resp 20 06/25/23 11:40 BP 103/51 06/25/23 09:07 Pulse Ox 93 L 06/25/23 09:07 FiO2 Intake & Output 06/24/23 06/25/23 06/25/23 18:59 06:59 18:59 Intake Total 300 250 Output Total 200 Balance 100 250 Intake: Intake, IV Titration 250 Amount Vancomycin 1,250 mg In 250 Sodium Chloride 0.9% 250 ml @ 125 mls/hr IVPB Q12H [facility] Rx#:[id number] Oral 300 Output: Urine 200 Other: Voiding Method Toilet Toilet Toilet Urinal Urinal Urinal # Voids 2 2 1 - Exam GENERAL DESCRIPTION: An elderly male lying in bed in no distress RESPIRATORY SYSTEM: Unlabored breathing , decreased breath sounds at bases HEART: S1 S2 regular rate and rhythm , ABDOMEN: Soft , no tenderness EXTREMITIES: No edema feet - Labs CBC & Chem 7: 06/25/23 09:51 06/25/23 06:53 Labs: Abnormal Lab Results - Last 24 Hours (Table) 06/25/23 06/25/23 Range/Units 06:53 09:51 WBC 13.0 H (3.8-10.6) k/uL RBC 2.56 L (4.30-5.90) m/uL Hgb 8.1 L (13.0-17.5) gm/dL Hct 25.4 L (39.0-53.0) % RDW 15.6 H (11.5-15.5) % Sodium 134 L (137-145) mmol/L Calcium 8.2 L (8.4-10.2) mg/dL Microbiology - Last 24 Hours (Table) 06/22/23 13:28 Anaerobic Culture - Preliminary Other - Other 06/22/23 13:28 Anaerobic Culture - Preliminary Other - Other 06/22/23 13:28 Anaerobic Culture - Preliminary Other - Other 06/22/23 13:28 Gram Stain - Final Back Wound Culture - Final 06/22/23 13:28 Gram Stain - Final Other - Other Wound Culture - Final 06/22/23 13:28 Gram Stain - Final Other - Other Wound Culture - Final Assessment and Plan (1) Discitis Current Visit: Yes Status: Acute Code(s): M46.40 - DISCITIS, UNSPECIFIED, SITE UNSPECIFIED SNOMED Code(s): 7241922 (2) Osteomyelitis of lumbar spine Current Visit: Yes Status: Acute Code(s): M46.26 - OSTEOMYELITIS OF VERTEBRA, LUMBAR REGION SNOMED Code(s): 509968305 Plan: 1patient presented to hospital with chronic pain to the lower back area and this patient has been diagnosed with osteomyelitis discitis involving L5-S1 area patient did have a history of trauma but no history of any fever or any chills and did have normal sed rate 2 patient with multiple antibiotic ALLERGIES that would limit the number of antibiotic safe to use 3-patient is status post extensive surgery to L5-S1 area including evacuation of phlegmon culture has been obtained which are currently pending 4-patient culture has been negative so far and resistant pathogen however the patient has been spiking fever which is slightly concerning culture has been repeated inflammatory markers repeated will continue with the vancomycin check vancomycin trough and switch Rocephin to cefepime Dictation was produced using [employer] dictation software. please excuse any grammatical, word or spelling errors. Time with Patient: Less than 30
[2023-06-26] MEDS: CEFEPIME 2 GM in SODIUM CHLORIDE 0.9% 100 ML IVPB SCH (08:18)
[2023-06-26 10:08] LABS: Basophils % (A) 0 %; Eosinophils # (A) 0.1 k/uL (0-0.7); Eosinophils % (A) 1 %; HCT 25.6 % (39.0-53.0); HGB 8.2 gm/dL (13.0-17.5); Lymphocytes # (A) 0.9 k/uL (1.0-4.8); Lymphocytes % (A) 10 %; MCH 31.8 pg (25.0-35.0); MCV 99.5 fL (80.0-100.0); Macrocytosis Slight; Mean Platelet Volume 8.8; Monocytes # (A) 0.6 k/uL (0-1.0); Monocytes % (A) 6 %; Neutrophils # (A) 7.8 k/uL (1.3-7.7); Neutrophils % (A) 81 %; Platelet Count 312 k/uL (150-450); RBC 2.58 m/uL (4.30-5.90); RDW 15.4 % (11.5-15.5); WBC 9.6 k/uL (3.8-10.6)
[2023-06-26 10:15] LABS: African American GFR (CKD) >90 (>60 ml/min/1.73 sqM); Anion Gap 6 mmol/L; Blood Urea Nitrogen 13 mg/dL (9-20); Calcium 8.3 mg/dL (8.4-10.2); Carbon Dioxide 27 mmol/L (22-30); Chloride 106 mmol/L (98-107); Glucose 176 mg/dL (74-99); Non-African American GFR(CKD) >90 (>60 ml/min/1.73 sqM); Potassium 3.4 mmol/L (3.5-5.1); Sodium 139 mmol/L (137-145)
[2023-06-26 10:26] LABS: C Reactive Protein 23.8 mg/dL (<1.0)
[2023-06-26 13:31] LABS: Erythrocyte Sedimentation Rate 46 mm/Hr (0-20)
--- NOTE | 2023-06-26 13:33 | P.PN ---
Subjective Progress Note Date: 06/26/23 Principal diagnosis: Status post L4-S1 posterior lateral decompression and fusion, L5-S1 osteomyelitis/discitis Patient was evaluated today at bedside, he is resting in his hospital chair, there is a sitter at bedside. Patient still remains very confused, is very difficult to obtain HPI, ROS and physical exam. I discussed most of the patient's current state with the nursing. Dressing change was done today, there was some mild serosanguineous drainage appreciated, ashli are all in good position. Patient has not been complaining any significant pain. White blood cell count today is in normal range. Biopsy results are still pending Objective - Vital Signs Vital signs: Vital Signs Temp 98.4 F 06/26/23 13:26 Pulse 85 06/26/23 13:26 Resp 17 06/26/23 13:26 BP 139/64 06/26/23 13:26 Pulse Ox 98 06/26/23 13:26 FiO2 Intake & Output 06/25/23 06/26/23 06/26/23 18:59 06:59 18:59 Output Total 450 200 Balance -450 -200 Output: Urine 450 200 Other: Voiding Method Toilet Toilet Toilet Urinal Urinal # Voids 1 1 1 # Bowel Movements 1 - Exam Gen: AOx3, NAD VSS stable at this time Integument: Bandages in good position condition, no active drainage Palpation: Mild tenderness with palpation of the lower lumbar paraspinal region ROM: Patient demonstrates full range of motion in all major muscle groups of the bilateral upper and lower extremities, no focal deficits Sensory Exam: Senory exam to light touch is intact C5-T1 Senosry exam to light touch is intact L2-S1 Motor: Difficult to assess motor exam due to patient's current mental state Reflexes: Difficult to assess due to patient's confusion and inability to follow commands - Labs CBC & Chem 7: 06/26/23 08:46 06/26/23 08:46 Labs: Abnormal Lab Results - Last 24 Hours (Table) 06/25/23 06/26/23 06/26/23 Range/Units 12:00 08:46 08:46 RBC 2.58 L (4.30-5.90) m/uL Hgb 8.2 L (13.0-17.5) gm/dL Hct 25.6 L (39.0-53.0) % Neutrophils # 7.8 H (1.3-7.7) k/uL Lymphocytes # 0.9 L (1.0-4.8) k/uL Potassium 3.4 L (3.5-5.1) mmol/L Creatinine 0.65 L (0.66-1.25) mg/dL Glucose 176 H (74-99) mg/dL Calcium 8.3 L (8.4-10.2) mg/dL C-Reactive Protein 23.8 H (<1.0) mg/dL Urine Protein Trace H (Negative) Urine Blood Trace H (Negative) Urine Bacteria Occasional H (None) /hpf Urine Mucus Rare H (None) /hpf Assessment and Plan Assessment: Postoperative day #4 status post L4-S1 decompression and fusion, postop day #7 status post L5-S1 biopsy Confusion Other medical comorbidities Plan: Pain control, recommend use of Tylenol. We did discontinue the gabapentin, Flexeril was also decreased. Avoid narcotics if possible DVT prophylaxis per primary medical service Wound care, continue to monitor surgical dressing Encourage incentive spirometer Weight-bear as tolerated, recommend use of a walker Continue with PT/OT Culture and sensitivity results that were taken at surgery to have demonstrated no growth, awaiting biopsy results. Infectious disease recommendations appreciated Other medical specialty recommendations appreciated Will continue to follow during hospital stay
--- NOTE | 2023-06-26 14:17 | P.PN ---
Subjective Progress Note Date: 06/26/23 Hospital Course: 68-year-old male with history of hypertension, anxiety presenting from outpati ent neurology office with concern for persistent low back pain of left leg pain for few months. Had outpatient MRI concerning for extensive osteomyelitis with discitis involving L5-S1. MRI shows L5-S1 discitis with L5-S1 osteomyelitis, no obvious epidural collection, epidural thickening redemonstrated. Paraspinal inflammatory changes noted. 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 Cervical and thoracic spine MRI shows acute discitis/osteomyelitis involving the inferior T7 vertebra through the superior T9 vertebra. Status post lumbar biopsy. Cultures no growth to date. Biopsy pending and wound culture negative growth to date. Maintained on IV vancomycin. ID following. Also started on IV cefepime. Patient has been delirious. Sitter at bedside. Subjective: Patient seen and examined at bedside. No acute events overnight. Sitter at bedside. Patient voiding well, having bowel movements. Pertinent positives and negatives as discussed above, a complete review of systems was performed and all other systems are negative. Vitals Signs Reviewed. General: Nontoxic, no distress, appears at stated age Derm: Warm, dry, dressing, clean, dry, intact Head: Atraumatic, normocephalic, symmetric Eyes: EOMI, no lid lag, anicteric sclera Mouth: No lip lesion, mucus membranes moist Cardiovascular: S1S2 reg, no murmur Lungs: CTA bilateral, no rhonchi, no rales, no accessory muscle use Ext: 3/5 strength in left lower extremity, 4/5 strength in right lower extremity, 5/5 strength in bilateral upper extremities Neuro: no focal neuro deficits Psych: Alert, oriented x 0 Data Reviewed Today: Pertinent Labs: Hemoglobin 8.2, potassium 3.4, creatinine 0.65, CRP 23.8, ESR 46, urinalysis negative for nitrites and leukocyte esterase. Imaging: No new imaging Assessment and Plan: Acute metabolic encephalopathy, likely hospital delirium worsened with pain medications. -Dilaudid, Xanax and Gabapentin discontinued. CT head negative. Frequent re- direction. Fall precautions. Sitter at bedside -On scheduled Tylenol 650 every 6 hours -On morphine 2 mg IV every 4 hours as needed, avoid narcotics as much as possible, also on Flexeril 5 3 times daily as needed, and Mary Esther 7.5 every 4 hours as needed -Continue senna 2 daily, milk of magnesia as needed Sepsis due to osteomyelitis of thoracic and lumbosacral spine status post surgery -Cultures have been negative so far -ID following, on IV vancomycin, monitor renal function -ID also started patient on IV cefepime 2 g every 8 hours -Orthopedic surgery note reviewed, continue current management, pain management as above Acute blood loss anemia, anticipated outcome of surgery, stable -Repeat CBC tomorrow Hypertension -Continue metoprolol 25 mg PO QD. DVT ppx: Heparin subcu Code status: Full code Anticipated discharge place: Pending clinical course Anticipated discharge time: Pending clinical course Objective - Vital Signs Vital signs: Vital Signs Temp 98.4 F 06/26/23 13:26 Pulse 85 06/26/23 13:26 Resp 17 06/26/23 13:26 BP 139/64 06/26/23 13:26 Pulse Ox 98 06/26/23 13:26 FiO2 Intake & Output 06/25/23 06/26/23 06/26/23 18:59 06:59 18:59 Output Total 450 200 Balance -450 -200 Output: Urine 450 200 Other: Voiding Method Toilet Toilet Toilet Urinal Urinal # Voids 1 1 1 # Bowel Movements 1 - Labs CBC & Chem 7: 06/26/23 08:46 06/26/23 08:46 Labs: Abnormal Lab Results - Last 24 Hours (Table) 06/25/23 06/26/23 06/26/23 Range/Units 12:00 08:46 08:46 RBC 2.58 L (4.30-5.90) m/uL Hgb 8.2 L (13.0-17.5) gm/dL Hct 25.6 L (39.0-53.0) % Neutrophils # 7.8 H (1.3-7.7) k/uL Lymphocytes # 0.9 L (1.0-4.8) k/uL ESR 46 H (0-20) mm/Hr Potassium 3.4 L (3.5-5.1) mmol/L Creatinine 0.65 L (0.66-1.25) mg/dL Glucose 176 H (74-99) mg/dL Calcium 8.3 L (8.4-10.2) mg/dL C-Reactive Protein 23.8 H (<1.0) mg/dL Urine Protein Trace H (Negative) Urine Blood Trace H (Negative) Urine Bacteria Occasional H (None) /hpf Urine Mucus Rare H (None) /hpf
[2023-06-26] MEDS: POTASSIUM CHLORIDE ER 20 MEQ TAB.ER PO STA (17:23)
[2023-06-26] MEDS: MELATONIN 3 MG TABLET PO SCH (20:32)
[2023-06-27] MEDS: cloNIDine HCL 0.1 MG TAB PO STA (02:55)
[2023-06-27] MEDS ORDERED: traZODone HCL 50 MG TAB PO SCH (08:11)
[2023-06-27] MEDS: hydrALAZINE HCL 20 MG/ML 1 ML VIAL IVP ONE (08:17)
[2023-06-27] MEDS: KETOROLAC 15 MG/ML 1 ML VIAL IVP STA (08:17)
[2023-06-27] MEDS: traZODone HCL 50 MG TAB PO SCH (08:17)
[2023-06-27 09:25] LABS: Basophils # (A) 0.07 X 10*3/uL (0.00-0.10); Basophils % (A) 0.8 %; Eosinophils # (A) 0.04 X 10*3/uL (0.04-0.35); Eosinophils % (A) 0.4 %; HCT 23.8 % (39.6-50.0); HGB 7.5 g/dL (13.0-17.0); Lymphocytes # (A) 1.25 X 10*3/uL (0.90-5.00); Lymphocytes % (A) 13.7 %; MCH 31.6 pg (27.0-32.0); MCHC 31.5 g/dL (32.0-37.0); MCV 100.4 FL (80.0-97.0); Mean Platelet Volume 9.5 FL (9.5-12.2); Monocytes # (A) 1.33 X 10*3/uL (0.20-1.00); Monocytes % (A) 14.6 %; NRBC Per 100 WBC 0 X 10*3/uL (0.00-0.01); Neutrophils # (A) 6.38 X 10*3/uL (1.80-7.70); Neutrophils % (A) 70.1 %; Platelet Count 314 X 10*3/uL (140-440); RBC 2.37 X 10*6/uL (4.40-5.60); RDW 15.8 % (11.5-14.5); WBC 9.11 X 10*3/uL (4.50-10.00)
[2023-06-27 09:40] LABS: Blood Urea Nitrogen 11.2 mg/dL (9.0-27.0); Calcium 8.4 mg/dL (8.7-10.3); Carbon Dioxide 25.7 mmol/L (21.6-31.8); Chloride 105 mmol/L (96-109); Glucose 117 mg/dL (70-110); Potassium 3.5 mmol/L (3.5-5.5); Sodium 143 mmol/L (135-145)
--- NOTE | 2023-06-27 11:32 | P.PN ---
Subjective Progress Note Date: 06/27/23 Patient is a 68-year-old male with hypertension, anxiety, and chronic back pain who presented from his neurology office due to concerns for extensive osteomyelitis of the lumbar spine. Patient underwent biopsy of L5 and S1 06/17 followed by L5-S1 complete discectomy with phlegmon evacuation and interbody fusion on 06/22/2023. Per nursing patient has been having worsening confusion over the last several days. Per nursing he has been refusing all medications. He has not slept in 3 days. Blood pressure is elevated this morning. Patient seen and examined at bedside. He is alert to self but is confused to timing. He believes he had surgery on his back years ago and none now. He denies any pain, nausea, vomiting. He does endorse feeling somewhat anxious today. updated over the phone as to possible etiologies of his confusion. Discussed plan of resuming patient's home trazodone dosing, trial of Toradol for pain, and frequent reorientation. She is in agreement with plan. Vital signs reviewed General: Nontoxic, no distress, appears at stated age Cardiovascular: S1S2 reg, no murmur Lungs: CTA bilateral, no rhonchi, no rales, no accessory muscle use Abdominal: Soft, nontender to palpation, no guarding Ext: No gross muscle atrophy, no edema b/l lower extremities, no contractures Neuro: CN II-XI grossly intact, no focal neuro deficits Psych: Alert, oriented to self, appropriate affect Assessment/Plan: Probable osteomyelitis of the lumbar spine with sepsis, resolved -Continue on Vanco mycin IV piggyback. Dosing via trough and creatinine. Monitor Vanco trough and creatinine levels for signs of toxicity -Cefepime 2 g IV every 8 hours -Await further infectious disease recommendations -Wound cultures negative to date -Await pathology -Orthopedic recommendations reviewed: Weight-bear as tolerated, continue with PT and OT, awaiting biopsy results Toxic metabolic encephalopathy -Patient was chronically on trazodone at home. This has not been taken since being in the hospital for the last 11 days. Will resume trazodone at half his normal dose 50 mg in the morning and 50 mg at night -Trial dose of Toradol for pain control as patient has only been getting Tylenol for the last 2 days and untreated pain can worsen delirium. -Continue off of benzodiazepines. Patient's reports that he was only taking his Klonopin 1-2 times weekly at home. -Head CT from 06/25/2023 shows no acute intracranial process. -Cefepime can cause altered mentation and could be considered to be changed if infectious disease is in agreement and remainder of conservative changes of medication do not improve mentation Acute blood loss anemia, anticipated outcome of surgery -Hemoglobin has had approximately 4 to 5 g drop -Not quite less than 7 and no indication for transfusion at this time -Monitor closely -Will check TSAT. No indication to check ferritin as this will likely be falsely elevated Hypertensive urgency -Hydralazine 10 mg IV push x 1 -Encourage patient to take oral metoprolol 25 mg daily -Follow-up blood pressures Imaging: None new Data Review: Labs reviewed from today include CBC and basic metabolic profile which are remarkable for hemoglobin of 7.5 down from 8.2. DVT prophylaxis: Heparin Anticipated discharge date: Pending clinical course Anticipated discharge place: Pending clinical course This dictation was prepared using [employer] voice recognition software. Though every attempt is made to correct errors during dictation some may still exist. Objective - Vital Signs Vital signs: Vital Signs Temp 98.3 F 06/27/23 07:44 Pulse 83 06/27/23 10:11 Resp 17 06/27/23 07:44 BP 178/73 06/27/23 10:11 Pulse Ox 96 06/27/23 10:11 FiO2 Intake & Output 06/26/23 06/27/23 06/27/23 18:59 06:59 18:59 Output Total 5 Balance -5 Output: Urine 5 Other: Voiding Method Toilet Toilet # Voids 1 # Bowel Movements 4 - Labs CBC & Chem 7: 06/27/23 05:17 06/27/23 05:17 Labs: Abnormal Lab Results - Last 24 Hours (Table) 06/26/23 06/27/23 06/27/23 Range/Units 08:46 05:17 05:17 RBC 2.37 L (4.40-5.60) X 10*6/uL Hgb 7.5 L (13.0-17.0) g/dL Hct 23.8 L (39.6-50.0) % MCV 100.4 H (80.0-97.0) FL MCHC 31.5 L (32.0-37.0) g/dL RDW 15.8 H (11.5-14.5) % Monocytes # 1.33 H (0.20-1.00) X 10*3/uL ESR 46 H (0-20) mm/Hr Anion Gap 12.30 H (4.00-12.00) mmol/L Glucose 117 H (70-110) mg/dL Calcium 8.4 L (8.7-10.3) mg/dL Microbiology - Last 24 Hours (Table) 06/22/23 13:28 Anaerobic Culture - Preliminary Other - Other 06/22/23 13:28 Anaerobic Culture - Final Other - Other 06/22/23 13:28 Anaerobic Culture - Final Other - Other 06/25/23 09:51 Blood Culture - Preliminary Blood
--- NOTE | 2023-06-27 11:52 | P.PN ---
Subjective Progress Note Date: 06/27/23 Principal diagnosis: Status post L4-S1 posterior lateral decompression and fusion, L5-S1 osteomyelitis/discitis Patient was evaluated today at bedside, he is resting in his hospital bed, there is a sitter at bedside. Discussed with nursing prior to examining the patient, they did do a few different dressing changes yesterday, no obvious purulent drainage or signs of erythema present. Patient does seem a little less agitated compared to yesterday, still remains confused. No obvious pain cues when turning patient and examining. Objective - Vital Signs Vital signs: Vital Signs Temp 98.3 F 06/27/23 07:44 Pulse 83 06/27/23 10:11 Resp 17 06/27/23 07:44 BP 178/73 06/27/23 10:11 Pulse Ox 96 06/27/23 10:11 FiO2 Intake & Output 06/26/23 06/27/23 06/27/23 18:59 06:59 18:59 Output Total 5 Balance -5 Output: Urine 5 Other: Voiding Method Toilet Toilet # Voids 1 # Bowel Movements 4 - Exam Gen: AOx3, NAD VSS stable at this time Integument: Bandage removed today at bedside, ashli are all in good position condition, there was some spotty bloody serosanguineous drainage noted. There is no si gnificant swelling, ecchymosis present. There is no obvious drainage present. Palpation: Mild tenderness with palpation of the lower lumbar paraspinal region ROM: Patient demonstrates full range of motion in all major muscle groups of the bilateral upper and lower extremities, no focal deficits Sensory Exam: Senory exam to light touch is intact C5-T1 Senosry exam to light touch is intact L2-S1 Motor: Difficult to assess motor exam due to patient's current mental state, patient is moving all extremities with no difficulty. Reflexes: Difficult to assess due to patient's confusion and inability to follow commands - Labs CBC & Chem 7: 06/27/23 05:17 06/27/23 05:17 Labs: Abnormal Lab Results - Last 24 Hours (Table) 06/26/23 06/27/23 06/27/23 Range/Units 08:46 05:17 05:17 RBC 2.37 L (4.40-5.60) X 10*6/uL Hgb 7.5 L (13.0-17.0) g/dL Hct 23.8 L (39.6-50.0) % MCV 100.4 H (80.0-97.0) FL MCHC 31.5 L (32.0-37.0) g/dL RDW 15.8 H (11.5-14.5) % Monocytes # 1.33 H (0.20-1.00) X 10*3/uL ESR 46 H (0-20) mm/Hr Anion Gap 12.30 H (4.00-12.00) mmol/L Glucose 117 H (70-110) mg/dL Calcium 8.4 L (8.7-10.3) mg/dL Microbiology - Last 24 Hours (Table) 06/22/23 13:28 Anaerobic Culture - Preliminary Other - Other 06/22/23 13:28 Anaerobic Culture - Final Other - Other 06/22/23 13:28 Anaerobic Culture - Final Other - Other 06/25/23 09:51 Blood Culture - Preliminary Blood Assessment and Plan Assessment: Postoperative day #5 status post L4-S1 decompression and fusion, postop day #8 status post L5-S1 biopsy Confusion Other medical comorbidities Plan: Pain control, recommend use of Tylenol. Toradol has been added for pain. DVT prophylaxis per primary medical service Wound care, continue to monitor surgical dressing Encourage incentive spirometer Weight-bear as tolerated, recommend use of a walker Continue with PT/OT Culture and sensitivity results that were taken at surgery to have demonstrated no growth, awaiting biopsy results. Infectious disease recommendations appreciated Other medical specialty recommendations appreciated Will continue to follow during hospital stay Time with Patient: Less than 30
[2023-06-27] MEDS ORDERED: HALOPERIDOL LACTATE 5 MG/ML 1 ML VIAL IM PRN (14:14)
[2023-06-27] MEDS: traZODone HCL 50 MG TAB PO STA (14:20)
--- NOTE | 2023-06-27 17:53 | P.PN ---
Subjective Progress Note Date: 06/26/23 Principal diagnosis: Reason for follow-up is abnormal MRI with a question of discitis/osteomyelitis Patient is a 68-year-old male with no significant past medical history however the patient did have a fall around Thanksgiving since then the patient has been dealing with the lower back pain with recent outpatient MRI suspicious for discitis/osteomyelitis for which the patient has been admitted to the hospital. Patient is status post L5-S1 and short disc osteotomy discectomy phlegmon evaluation along with L4-5 and L5-S1 bilateral laminectomy facetectomy and foraminotomy antibiotic cement placement as well as screw placement procedure completed on 06/22/2023. On today's evaluation that is 06/26/2023,the patient did have improvement in his fever pattern with a temperature 100.1 at 1 AM the patient is afebrile since then patient remains to be pleasantly confused the sitter at the bedside no agitation has been reported no vomiting diarrhea or any worsening pain to the back Patient white count is down to 9.6 creatinine 0.65 Objective - Vital Signs Vital signs: Vital Signs Temp 98.0 F 06/26/23 07:30 Pulse 95 06/26/23 07:30 Resp 16 06/26/23 07:30 BP 124/82 06/26/23 07:30 Pulse Ox 91 L 06/26/23 07:30 FiO2 Intake & Output 06/25/23 06/26/23 06/26/23 18:59 06:59 18:59 Output Total 450 200 Balance -450 -200 Output: Urine 450 200 Other: Voiding Method Toilet Toilet Toilet Urinal Urinal # Voids 1 1 1 # Bowel Movements 1 - Exam GENERAL DESCRIPTION: An elderly male lying in bed in no distress RESPIRATORY SYSTEM: Unlabored breathing , decreased breath sounds at bases HEART: S1 S2 regular rate and rhythm , ABDOMEN: Soft , no tenderness EXTREMITIES: No edema feet - Labs CBC & Chem 7: 06/27/23 05:17 06/27/23 05:17 Labs: Abnormal Lab Results - Last 24 Hours (Table) 06/25/23 06/26/23 06/26/23 Range/Units 12:00 08:46 08:46 RBC 2.58 L (4.30-5.90) m/uL Hgb 8.2 L (13.0-17.5) gm/dL Hct 25.6 L (39.0-53.0) % Neutrophils # 7.8 H (1.3-7.7) k/uL Lymphocytes # 0.9 L (1.0-4.8) k/uL Potassium 3.4 L (3.5-5.1) mmol/L Creatinine 0.65 L (0.66-1.25) mg/dL Glucose 176 H (74-99) mg/dL Calcium 8.3 L (8.4-10.2) mg/dL C-Reactive Protein 23.8 H (<1.0) mg/dL Urine Protein Trace H (Negative) Urine Blood Trace H (Negative) Urine Bacteria Occasional H (None) /hpf Urine Mucus Rare H (None) /hpf Assessment and Plan (1) Discitis Current Visit: Yes Status: Acute Code(s): M46.40 - DISCITIS, UNSPECIFIED, SITE UNSPECIFIED SNOMED Code(s): 5783678 (2) Osteomyelitis of lumbar spine Current Visit: Yes Status: Acute Code(s): M46.26 - OSTEOMYELITIS OF VERTEBRA, LUMBAR REGION SNOMED Code(s): 054235346 Plan: 1patient presented to hospital with chronic pain to the lower back area and this patient has been diagnosed with osteomyelitis discitis involving L5-S1 area patient did have a history of trauma but no history of any fever or any chills and did have normal sed rate 2 patient with multiple antibiotic ALLERGIES that would limit the number of antibiotic safe to use 3-patient is status post extensive surgery to L5-S1 area including evacuation of phlegmon culture has been obtained which are currently pending 4-patient culture has been negative so far and resistant pathogen however the patient has been spiking fever and the patient antibiotics were switched to cefepime to continue along with the vancomycin fever pattern has improved however noted to have slight worsening of his mentation Dictation was produced using [employer] dictation software. please excuse any grammatical, word or spelling errors. Time with Patient: Less than 30
--- NOTE | 2023-06-27 17:56 | P.PN ---
Subjective Progress Note Date: 06/27/23 Principal diagnosis: Reason for follow-up is abnormal MRI with a question of discitis/osteomyelitis Patient is a 68-year-old male with no significant past medical history however the patient did have a fall around Thanksgiving since then the patient has been dealing with the lower back pain with recent outpatient MRI suspicious for discitis/osteomyelitis for which the patient has been admitted to the hospital. Patient is status post L5-S1 and short disc osteotomy discectomy phlegmon evaluation along with L4-5 and L5-S1 bilateral laminectomy facetectomy and foraminotomy antibiotic cement placement as well as screw placement procedure completed on 06/22/2023. On today's evaluation that is 06/27/2023,the patient did have resolution of his fever and is afebrile today the patient remains to be pleasantly confused no agitation or aggression reported by the sitter at the bedside no vomiting or diarrhea has been reported denies any worsening lower back pain patient is currently on room air Patient white count is down to 9.11, creatinine 0.7, culture remains to be negative Objective - Vital Signs Vital signs: Vital Signs Temp 97.6 F 06/27/23 15:25 Pulse 87 06/27/23 15:25 Resp 16 06/27/23 15:25 BP 151/97 06/27/23 15:25 Pulse Ox 94 L 06/27/23 15:25 FiO2 Intake & Output 06/26/23 06/27/23 06/27/23 18:59 06:59 18:59 Output Total 5 2 Balance -5 -2 Output: Urine 5 2 Other: Voiding Method Toilet Toilet # Voids 1 4 # Bowel Movements 4 3 - Exam GENERAL DESCRIPTION: An elderly male lying in bed in no distress RESPIRATORY SYSTEM: Unlabored breathing , decreased breath sounds at bases HEART: S1 S2 regular rate and rhythm , ABDOMEN: Soft , no tenderness EXTREMITIES: No edema feet - Labs CBC & Chem 7: 06/27/23 05:17 06/27/23 05:17 Labs: Abnormal Lab Results - Last 24 Hours (Table) 06/27/23 06/27/23 Range/Units 05:17 05:17 RBC 2.37 L (4.40-5.60) X 10*6/uL Hgb 7.5 L (13.0-17.0) g/dL Hct 23.8 L (39.6-50.0) % MCV 100.4 H (80.0-97.0) FL MCHC 31.5 L (32.0-37.0) g/dL RDW 15.8 H (11.5-14.5) % Monocytes # 1.33 H (0.20-1.00) X 10*3/uL Anion Gap 12.30 H (4.00-12.00) mmol/L Glucose 117 H (70-110) mg/dL Calcium 8.4 L (8.7-10.3) mg/dL Microbiology - Last 24 Hours (Table) 06/26/23 08:46 Blood Culture - Preliminary Blood 06/25/23 09:51 Blood Culture - Preliminary Blood 06/22/23 13:28 Anaerobic Culture - Preliminary Other - Other 06/22/23 13:28 Anaerobic Culture - Final Other - Other 06/22/23 13:28 Anaerobic Culture - Final Other - Other Assessment and Plan (1) Discitis Current Visit: Yes Status: Acute Code(s): M46.40 - DISCITIS, UNSPECIFIED, SITE UNSPECIFIED SNOMED Code(s): 1459725 (2) Osteomyelitis of lumbar spine Current Visit: Yes Status: Acute Code(s): M46.26 - OSTEOMYELITIS OF VERTEBRA, LUMBAR REGION SNOMED Code(s): 278026796 Plan: 1patient presented to hospital with chronic pain to the lower back area and this patient has been diagnosed with osteomyelitis discitis involving L5-S1 area patient did have a history of trauma but no history of any fever or any chills and did have normal sed rate 2 patient with multiple antibiotic ALLERGIES that would limit the number of antibiotic safe to use 3-patient is status post extensive surgery to L5-S1 area including evacuation of phlegmon culture has been obtained which are currently pending 4-patient did have a postop fever which has resolved culture has been negative so far patient is currently on cefepime and vancomycin, patient already has a PICC line for outpatient IV antibiotic therapy Dictation was produced using [employer] dictation software. please excuse any grammatical, word or spelling errors. Time with Patient: Less than 30
[2023-06-27] MEDS: hydrALAZINE HCL 25 MG TAB PO STA (20:37)
[2023-06-28 07:21] LABS: ALT 77 U/L (4-49); AST 65 U/L (17-59); African American GFR (CKD) >90 (>60 ml/min/1.73 sqM); Albumin 2.8 g/dL (3.5-5.0); Alkaline Phosphatase 105 U/L (38-126); Anion Gap 6 mmol/L; Blood Urea Nitrogen 15 mg/dL (9-20); Calcium 8.3 mg/dL (8.4-10.2); Carbon Dioxide 26 mmol/L (22-30); Chloride 111 mmol/L (98-107); Globulin 2.8 g/dL; Glucose 116 mg/dL (74-99); Non-African American GFR(CKD) >90 (>60 ml/min/1.73 sqM); Potassium 3.6 mmol/L (3.5-5.1); Sodium 143 mmol/L (137-145); Total Bilirubin 0.3 mg/dL (0.2-1.3); Total Protein 5.6 g/dL (6.3-8.2)
--- NOTE | 2023-06-28 07:59 | P.PN ---
Subjective Progress Note Date: 06/28/23 Principal diagnosis: 1. L5-S1 osteomyelitis discitis 2. 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 Left lower extremity weakness 4. Mechanical low back pain Patient seen and examined this morning. Patient is resting comfortably in bed. Sitter is at bedside. Patient remains pleasantly confused. Informed staff that window blinds need to be opened, patient needs to be sitting upright in bed, lights on in room to assist with reorientation. Surgical dressing to the lumbar spine is dry and intact. Patient was able to demonstrate his ability to move upper and lower extremities without difficulty. Medications have been adjusted over the past few days, we will continue to monitor. Patient is cleared from an Orthopedic standpoint for discharge once he is medically stable. Objective - Vital Signs Vital signs: Vital Signs Temp 97.5 F L 06/28/23 06:58 Pulse 88 06/28/23 06:58 Resp 22 06/28/23 06:58 BP 175/82 06/28/23 06:58 Pulse Ox 93 L 06/28/23 06:58 FiO2 Intake & Output 06/27/23 06/28/23 06/28/23 18:59 06:59 18:59 Output Total 2 Balance -2 Output: Urine 2 Other: Voiding Method Toilet # Voids 4 2 # Bowel Movements 3 - Exam General: The patient is awake and alert, in no acute distress. Skin: Skin is warm and dry with no obvious rashes or lesions. Surgical incision to the lumbar spine, surgical dressing is clean dry and intact. Eye: Pupils are equal, round and reactive to light, extra-ocular movements are intact; there is normal conjunctiva bilaterally. Neck: The neck is supple, there is no tenderness and ROM intact. Respiratory: Respirations are non-labored, breath sounds are equal. Gastrointestinal: Soft, non-distended, non-tender abdomen. Back: There is no tenderness to palpation in the midline lumbar region. There is no obvious deformity. Musculoskeletal: ROM limited secondary to pain. Bilateral upper extremities 5/5, Right lower extremity 4+/5, Left lower extremity knee flexor 4/5, ankle dorsiflexor 4/5, ankle plantarflexion 4-/5 and extensor hallucis 4-/5. Neurological: CN 2-12 intact. There are no obvious motor or sensory deficits. Movement and coordination equal and intact. Sensory exam to light touch intact C5-T1 and intact from L2-S1. Reflexes 2/4 in bilateral upper and lower extremities. Negative Hoffmans, babinski, and clonus signs. Psychiatric: Cooperative, remains confused - Labs CBC & Chem 7: 06/27/23 05:17 06/28/23 06:10 Labs: Abnormal Lab Results - Last 24 Hours (Table) 06/27/23 06/27/23 06/28/23 Range/Units 05: 05: 06:10 RBC 2.37 L (4.40-5.60) X 10*6/uL Hgb 7.5 L (13.0-17.0) g/dL Hct 23.8 L (39.6-50.0) % MCV 100.4 H (80.0-97.0) FL MCHC 31.5 L (32.0-37.0) g/dL RDW 15.8 H (11.5-14.5) % Monocytes # 1.33 H (0.20-1.00) X 10*3/uL Chloride 111 H (98-107) mmol/L Anion Gap 12.30 H (4.00-12.00) mmol/L Creatinine 0.60 L (0.66-1.25) mg/dL Glucose 117 H 116 H (70-110) mg/dL Calcium 8.4 L 8.3 L (8.7-10.3) mg/dL AST 65 H (17-59) U/L ALT 77 H (4-49) U/L Total Protein 5.6 L (6.3-8.2) g/dL Albumin 2.8 L (3.5-5.0) g/dL Microbiology - Last 24 Hours (Table) 06/22/23 13:28 Anaerobic Culture - Final Other - Other 06/26/23 08:46 Blood Culture - Preliminary Blood 06/25/23 09:51 Blood Culture - Preliminary Blood Assessment and Plan Assessment: -Postop day 6: L4-S1 decompression and fusion -Altered mental status 1. L5-S1 osteomyelitis discitis 2. 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 Left lower extremity weakness 4. Mechanical low back pain Plan: -Appreciate technical support consultant and team management. -Activity: Ambulate QID, OOB all meals, up and about, limit lifting bending twisting to less than 5 lbs. Use walker or cane if needed for stability. -Daily PT/OT, increase ambulation strength and balance. -Brace when up and about, not needed in bed or chair -Pain control: Adequate at this time -Meds: reviewed -GI ppx: senna, MOM -DVT PPX: Heparin, *JACKSON hose need to be applied, on during the day [facility] -Hygiene: Keep incision clean and dry. -Encourage IS 10x/hr -Dispo: Clinically pending, patient is cleared from an Orthopedic standpoint for discharge, when medically stable. *I reviewed and discussed this case with my attending Dr. Hogan, whom has reviewed this chart and films and is in agreement with assessment and plan of care as outlined above. I have personally seen and examined the patient, performed the documentation and the assessment and plan as written. Number of minutes spent on the visit: 30m.
[2023-06-28 08:24] LABS: HCT 22.5 % (39.6-50.0); HGB 7.1 g/dL (13.0-17.0); MCH 30.5 pg (27.0-32.0); MCHC 31.6 g/dL (32.0-37.0); MCV 96.6 FL (80.0-97.0); Mean Platelet Volume 9.2 FL (9.5-12.2); NRBC Per 100 WBC 0 X 10*3/uL (0.00-0.01); Platelet Count 335 X 10*3/uL (140-440); RBC 2.33 X 10*6/uL (4.40-5.60); RDW 15.7 % (11.5-14.5); WBC 6.52 X 10*3/uL (4.50-10.00)
--- NOTE | 2023-06-28 13:07 | P.PN ---
Subjective Progress Note Date: 06/28/23 Hospital Course: 68-year-old male with history of hypertension, anxiety presenting from outpati ent neurology office with concern for persistent low back pain of left leg pain for few months. Had outpatient MRI concerning for extensive osteomyelitis with discitis involving L5-S1. MRI shows L5-S1 discitis with L5-S1 osteomyelitis, no obvious epidural collection, epidural thickening redemonstrated. Paraspinal inflammatory changes noted. 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 Cervical and thoracic spine MRI shows acute discitis/osteomyelitis involving the inferior T7 vertebra through the superior T9 vertebra. Status post lumbar biopsy. Cultures no growth to date. Biopsy pending and wound culture negative growth to date. Maintained on IV vancomycin. ID following. Also started on IV cefepime. Patient has been delirious. Sitter at bedside. Subjective: Patient seen and examined at bedside. No acute events overnight. Patient still having difficulty sleeping at night. Mental status slightly improved. Voiding well. Having bowel movements. Pertinent positives and negatives as discussed above, a complete review of systems was performed and all other systems are negative. Vitals Signs Reviewed. General: Nontoxic, no distress, appears at stated age Derm: Warm, dry, dressing, clean, dry, intact Head: Atraumatic, normocephalic, symmetric Eyes: EOMI, no lid lag, anicteric sclera Mouth: No lip lesion, mucus membranes moist Cardiovascular: S1S2 reg, no murmur Lungs: CTA bilateral, no rhonchi, no rales, no accessory muscle use Ext: 3/5 strength in left lower extremity, 4/5 strength in right lower extremity, 5/5 strength in bilateral upper extremities Neuro: no focal neuro deficits Psych: Alert, oriented x 1 Data Reviewed Today: Pertinent Labs: Hemoglobin 7.1, potassium 3.6, creatinine 0.6, iron studies pending, magnesium 2.0, TSH 0.816. Imaging: No new imaging Assessment and Plan: Probable osteomyelitis of the lumbar spine with sepsis, resolved -Continue on vancomycin IV piggyback. Dosing via trough and creatinine. Monitor Vanco trough and creatinine levels for signs of toxicity -Cefepime 2 g IV every 8 hours -Await further infectious disease recommendations -Wound cultures negative to date -Pathology consistent with osteomyelitis -Orthopedic recommendations reviewed: Weight-bear as tolerated, continue with PT and OT, awaiting biopsy results Toxic metabolic encephalopathy -Restarted on home trazodone 50 twice daily -Encephalopathy slightly improved, will add Toradol 15 IV every 6 hours scheduled along with scheduled Tylenol 650 every 6 hours, continue to monitor renal function -Continue off of benzodiazepines. Patient's reports that he was only taking his Klonopin 1-2 times weekly at home. -Head CT from 06/25/2023 shows no acute intracranial process. -Cefepime can cause altered mentation and could be considered to be changed if infectious disease is in agreement and remainder of conservative changes of medication do not improve mentation Acute blood loss anemia, anticipated outcome of surgery -Hemoglobin has had approximately 4 to 5 g drop -Not quite less than 7 and no indication for transfusion at this time -Monitor closely -Iron studies pending Hypertensive urgency -Encourage patient to take oral metoprolol 25 mg daily -Follow-up blood pressures -Could be related to untreated pain -Added hydralazine as needed DVT ppx: Heparin subcu Code status: Full code Anticipated discharge place: Pending clinical course Anticipated discharge time: Pending clinical course Objective - Vital Signs Vital signs: Vital Signs Temp 97.5 F L 06/28/23 06:58 Pulse 88 06/28/23 06:58 Resp 22 06/28/23 06:58 BP 175/82 06/28/23 06:58 Pulse Ox 93 L 06/28/23 06:58 FiO2 Intake & Output 06/27/23 06/28/23 06/28/23 18:59 06:59 18:59 Output Total 2 Balance -2 Output: Urine 2 Other: Voiding Method Toilet # Voids 4 2 # Bowel Movements 3 - Labs CBC & Chem 7: 06/28/23 06:10 06/28/23 06:10 Labs: Abnormal Lab Results - Last 24 Hours (Table) 06/28/23 06/28/23 Range/Units 06:10 06:10 RBC 2.33 L (4.40-5.60) X 10*6/uL Hgb 7.1 L (13.0-17.0) g/dL Hct 22.5 L (39.6-50.0) % MCHC 31.6 L (32.0-37.0) g/dL RDW 15.7 H (11.5-14.5) % MPV 9.2 L (9.5-12.2) FL Chloride 111 H (98-107) mmol/L Creatinine 0.60 L (0.66-1.25) mg/dL Glucose 116 H (74-99) mg/dL Calcium 8.3 L (8.4-10.2) mg/dL AST 65 H (17-59) U/L ALT 77 H (4-49) U/L Total Protein 5.6 L (6.3-8.2) g/dL Albumin 2.8 L (3.5-5.0) g/dL Microbiology - Last 24 Hours (Table) 06/22/23 13:28 Anaerobic Culture - Final Other - Other 06/26/23 08:46 Blood Culture - Preliminary Blood 06/25/23 09:51 Blood Culture - Preliminary Blood
[2023-06-28] MEDS: hydrALAZINE HCL 20 MG/ML 1 ML VIAL IVP PRN (13:16)
[2023-06-28] MEDS: KETOROLAC 15 MG/ML 1 ML VIAL IVP SCH (13:16)
[2023-06-28 17:32] LABS: % Iron Saturation 7.49 (15.00-50.00); Iron 17 UG/DL (65-175); Total Iron Binding Capacity 227 UG/DL (228-460)
--- NOTE | 2023-06-28 19:58 | P.PN ---
Subjective Progress Note Date: 06/28/23 Principal diagnosis: Reason for follow-up is abnormal MRI with a question of discitis/osteomyelitis Patient is a 68-year-old male with no significant past medical history however the patient did have a fall around Thanksgiving since then the patient has been dealing with the lower back pain with recent outpatient MRI suspicious for discitis/osteomyelitis for which the patient has been admitted to the hospital. Patient is status post L5-S1 and short disc osteotomy discectomy phlegmon evaluation along with L4-5 and L5-S1 bilateral laminectomy facetectomy and foraminotomy antibiotic cement placement as well as screw placement procedure completed on 06/22/2023. On today's evaluation that is 06/28/2023, the patient continues to be afebrile, the patient is on room air and breathing comfortably, the Pt remains to be pleasantly confused with a sitter at the bedside no vomiting diarrhea and the changes reported by the nursing staff. Patient did have a white count of 6.52 creatinine 0.60 culture has been negative so far Objective - Vital Signs Vital signs: Vital Signs Temp 97.5 F L 06/28/23 06:58 Pulse 88 06/28/23 06:58 Resp 22 06/28/23 06:58 BP 175/82 06/28/23 06:58 Pulse Ox 93 L 06/28/23 06:58 FiO2 Intake & Output 06/27/23 06/28/23 06/28/23 18:59 06:59 18:59 Output Total 2 Balance -2 Output: Urine 2 Other: Voiding Method Toilet # Voids 4 2 # Bowel Movements 3 - Exam GENERAL DESCRIPTION: An elderly male lying in bed in no distress RESPIRATORY SYSTEM: Unlabored breathing , decreased breath sounds at bases HEART: S1 S2 regular rate and rhythm , ABDOMEN: Soft , no tenderness EXTREMITIES: No edema feet - Labs CBC & Chem 7: 06/28/23 06:10 06/28/23 06:10 Labs: Abnormal Lab Results - Last 24 Hours (Table) 06/28/23 06/28/23 Range/Units 06:10 06:10 RBC 2.33 L (4.40-5.60) X 10*6/uL Hgb 7.1 L (13.0-17.0) g/dL Hct 22.5 L (39.6-50.0) % MCHC 31.6 L (32.0-37.0) g/dL RDW 15.7 H (11.5-14.5) % MPV 9.2 L (9.5-12.2) FL Chloride 111 H (98-107) mmol/L Creatinine 0.60 L (0.66-1.25) mg/dL Glucose 116 H (74-99) mg/dL Calcium 8.3 L (8.4-10.2) mg/dL AST 65 H (17-59) U/L ALT 77 H (4-49) U/L Total Protein 5.6 L (6.3-8.2) g/dL Albumin 2.8 L (3.5-5.0) g/dL Microbiology - Last 24 Hours (Table) 06/22/23 13:28 Anaerobic Culture - Final Other - Other 06/26/23 08:46 Blood Culture - Preliminary Blood 06/25/23 09:51 Blood Culture - Preliminary Blood Assessment and Plan (1) Discitis Current Visit: Yes Status: Acute Code(s): M46.40 - DISCITIS, UNSPECIFIED, SITE UNSPECIFIED SNOMED Code(s): 6392679 (2) Osteomyelitis of lumbar spine Current Visit: Yes Status: Acute Code(s): M46.26 - OSTEOMYELITIS OF VERTEBRA, LUMBAR REGION SNOMED Code(s): 302193782 Plan: 1patient presented to hospital with chronic pain to the lower back area and this patient has been diagnosed with osteomyelitis discitis involving L5-S1 area patient did have a history of trauma but no history of any fever or any chills and did have normal sed rate 2 patient with multiple antibiotic ALLERGIES that would limit the number of antibiotic safe to use 3-patient is status post extensive surgery to L5-S1 area including evacuation of phlegmon culture has been obtained which are currently pending 4-patient did have a postop fever which has resolved culture has been negative so far 5-patient to continue with cefepime and vancomycin, waiting for improvement in his mentation Dictation was produced using [employer] dictation software. please excuse any grammatical, word or spelling errors. Time with Patient: Less than 30
[2023-06-29 04:23] LABS: African American GFR (CKD) >90 (>60 ml/min/1.73 sqM); Non-African American GFR(CKD) >90 (>60 ml/min/1.73 sqM)
[2023-06-29] MEDS: VANCOMYCIN TROUGH DUE 1 EACH MISC MISCELLANE ONE (05:01)
--- NOTE | 2023-06-29 06:40 | P.PN ---
Subjective Progress Note Date: 06/29/23 Principal diagnosis: 1. L5-S1 osteomyelitis discitis 2. 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 Left lower extremity weakness 4. Mechanical low back pain Patient seen and examined this morning. Patient is resting comfortably in bed. Sitter is at bedside. Patient remains pleasantly confused. He is unable to tell me where he is, situation, or date. Surgical dressing to the lumbar spine is dry and intact. Patient was able to sit himself to the side of bed. No acute concerns at this time. Objective - Vital Signs Vital signs: Vital Signs Temp 98.5 F 06/29/23 01:17 Pulse 78 06/29/23 01:17 Resp 18 06/29/23 01:17 BP 164/67 06/29/23 01:17 Pulse Ox 93 L 06/29/23 01:17 FiO2 Intake & Output 06/28/23 06/28/23 06/29/23 06:59 18:59 06:59 Other: Voiding Method Toilet # Voids 2 4 # Bowel Movements 3 - Exam General: The patient is awake and alert, in no acute distress. Skin: Skin is warm and dry with no obvious rashes or lesions. Surgical incision to the lumbar spine, surgical dressing is clean dry and intact. Eye: Pupils are equal, round and reactive to light, extra-ocular movements are intact; there is normal conjunctiva bilaterally. Neck: The neck is supple, there is no tenderness and ROM intact. Respiratory: Respirations are non-labored, breath sounds are equal. Gastrointestinal: Soft, non-distended, non-tender abdomen. Back: There is no tenderness to palpation in the midline lumbar region. There is no obvious deformity. Musculoskeletal: ROM limited secondary to pain. Bilateral upper extremities 5/5, Right lower extremity 4+/5, Left lower extremity knee flexor 4/5, ankle dorsiflexor 4/5, ankle plantarflexion 4/5 and extensor hallucis 4/5. Neurological: CN 2-12 intact. There are no obvious motor or sensory deficits. Movement and coordination equal and intact. Sensory exam to light touch intact C5-T1 and intact from L2-S1. Reflexes 2/4 in bilateral upper and lower extremities. Negative Hoffmans, babinski, and clonus signs. Psychiatric: Cooperative, remains confused - Labs CBC & Chem 7: 06/28/23 06:10 05/07/24 03:57 Labs: Abnormal Lab Results - Last 24 Hours (Table) 06/28/23 06/28/23 Range/Units 06:10 06:10 RBC 2.33 L (4.40-5.60) X 10*6/uL Hgb 7.1 L (13.0-17.0) g/dL Hct 22.5 L (39.6-50.0) % MCHC 31.6 L (32.0-37.0) g/dL RDW 15.7 H (11.5-14.5) % MPV 9.2 L (9.5-12.2) FL Chloride 111 H (98-107) mmol/L Creatinine 0.60 L (0.66-1.25) mg/dL Glucose 116 H (74-99) mg/dL Calcium 8.3 L (8.4-10.2) mg/dL Iron 17 L (65-175) UG/DL TIBC 227 L (228-460) UG/DL % Saturation 7.49 L (15.00-50.00) Transferrin 162.0 L (204.0-354.0) mg/dL AST 65 H (17-59) U/L ALT 77 H (4-49) U/L Total Protein 5.6 L (6.3-8.2) g/dL Albumin 2.8 L (3.5-5.0) g/dL Microbiology - Last 24 Hours (Table) 06/26/23 08:46 Blood Culture - Preliminary Blood 06/25/23 09:51 Blood Culture - Preliminary Blood Assessment and Plan Assessment: -Postop day 7: L4-S1 decompression and fusion -Altered mental status 1. L5-S1 osteomyelitis discitis 2. 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 Left lower extremity weakness 4. Mechanical low back pain Plan: -Appreciate enterprise resource planning consultant and team management. -Activity: Ambulate QID, OOB all meals, up and about, limit lifting bending twisting to less than 5 lbs. Use walker or cane if needed for stability. -Daily PT/OT, increase ambulation strength and balance. -Brace when up and about, not needed in bed or chair -Pain control: Adequate at this time -Meds: reviewed -GI ppx: senna, MOM -DVT PPX: Heparin, *JACKSON hose need to be applied, on during the day and off at night. -Hygiene: Keep incision clean and dry. -Encourage IS 10x/hr -Dispo: Clinically pending, patient is cleared from an Orthopedic standpoint for discharge, when medically stable. We will be available to see patient if needed. *I reviewed and discussed this case with my attending Dr. Hogan, whom has reviewed this chart and films and is in agreement with assessment and plan of c are as outlined above. I have personally seen and examined the patient, performed the documentation and the assessment and plan as written. Number of minutes spent on the visit: 30m.
[2023-06-29 08:46] LABS: Basophils # (A) 0.07 X 10*3/uL (0.00-0.10); Eosinophils # (A) 0.27 X 10*3/uL (0.04-0.35); HGB 7.3 g/dL (13.0-17.0); Lymphocytes # (A) 0.98 X 10*3/uL (0.90-5.00); Lymphocytes % (A) 14.4 %; MCH 30.7 pg (27.0-32.0); MCHC 31.7 g/dL (32.0-37.0); MCV 96.6 FL (80.0-97.0); Mean Platelet Volume 9.1 FL (9.5-12.2); Monocytes # (A) 0.95 X 10*3/uL (0.20-1.00); NRBC Per 100 WBC 0 X 10*3/uL (0.00-0.01); Neutrophils # (A) 4.46 X 10*3/uL (1.80-7.70); Neutrophils % (A) 65.7 %; Platelet Count 361 X 10*3/uL (140-440); RBC 2.38 X 10*6/uL (4.40-5.60); RDW 15.6 % (11.5-14.5); WBC 6.79 X 10*3/uL (4.50-10.00)
[2023-06-29 09:26] LABS: ALT 77 U/L (10-49); AST 53 U/L (14-35); Albumin 3.2 g/dL (3.8-4.9); Albumin/Globulin Ratio 1.33 Ratio (1.60-3.17); Alkaline Phosphatase 105 U/L (41-126); Blood Urea Nitrogen 18.4 mg/dL (9.0-27.0); Calcium 8.4 mg/dL (8.7-10.3); Chloride 108 mmol/L (96-109); Globulin 2.4 g/dL (1.6-3.3); Glucose 118 mg/dL (70-110); Potassium 3.3 mmol/L (3.5-5.5); Sodium 143 mmol/L (135-145); Total Bilirubin <0.2 mg/dL (0.3-1.2); Total Protein 5.6 g/dL (6.2-8.2)
--- NOTE | 2023-06-29 11:33 | P.PN ---
Subjective Progress Note Date: 06/29/23 Hospital Course: 68-year-old male with history of hypertension, anxiety presenting from outpati ent neurology office with concern for persistent low back pain of left leg pain for few months. Had outpatient MRI concerning for extensive osteomyelitis with discitis involving L5-S1. MRI shows L5-S1 discitis with L5-S1 osteomyelitis, no obvious epidural collection, epidural thickening redemonstrated. Paraspinal inflammatory changes noted. 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 Cervical and thoracic spine MRI shows acute discitis/osteomyelitis involving the inferior T7 vertebra through the superior T9 vertebra. Status post lumbar biopsy. Cultures no growth to date. Biopsy pending and wound culture negative growth to date. Maintained on IV vancomycin. ID following. Also started on IV cefepime. Patient has been delirious. Sitter at bedside. Mental status has improved tremendously. Subjective: Patient seen and examined at bedside. No acute events overnight. Mental status much more improved. at bedside. Able to ambulate, urinating and having bowel movements. Pertinent positives and negatives as discussed above, a complete review of systems was performed and all other systems are negative. Vitals Signs Reviewed. General: Nontoxic, no distress, appears at stated age Derm: Warm, dry, dressing, clean, dry, intact Head: Atraumatic, normocephalic, symmetric Eyes: EOMI, no lid lag, anicteric sclera Mouth: No lip lesion, mucus membranes moist Cardiovascular: S1S2 reg, no murmur Lungs: CTA bilateral, no rhonchi, no rales, no accessory muscle use Ext: 4/5 strength in left lower extremity, 4/5 strength in right lower extremity, 5/5 strength in bilateral upper extremities Neuro: no focal neuro deficits Psych: Alert, oriented x 2 Data Reviewed Today: Pertinent Labs: Hemoglobin 7.3, potassium 3.3, iron 17, TIBC 227, percent saturation 7.49, transferrin 162 Imaging: No new imaging Assessment and Plan: osteomyelitis of the lumbar spine sepsis secondary to above, resolved -Continue on vancomycin IV piggyback. Dosing via trough and creatinine. Monitor Vanco trough and creatinine levels for signs of toxicity -Cefepime 2 g IV every 8 hours -Await further infectious disease recommendations -Wound cultures negative to date -Pathology consistent with osteomyelitis -Orthopedic recommendations reviewed: Weight-bear as tolerated, continue with PT and OT Toxic metabolic encephalopathy, resolving -Continue on home trazodone 50 twice daily -Encephalopathy slightly improved, continue Toradol 15 IV every 6 hours scheduled along with scheduled Tylenol 650 every 6 hours, continue to monitor renal function -Continue off of benzodiazepines. Patient's reports that he was only joe ing his Klonopin 1-2 times weekly at home. -Head CT from 06/25/2023 shows no acute intracranial process. -Cefepime can cause altered mentation and could be considered to be changed if infectious disease is in agreement and remainder of conservative changes of medication do not improve mentation Acute blood loss anemia, anticipated outcome of surgery Iron deficiency anemia -Hemoglobin has had approximately 4 to 5 g drop -Not quite less than 7 and no indication for transfusion at this time -Monitor closely -Avoid IV iron given osteomyelitis, was started on oral iron and ascorbic acid Hypokalemia -40 mEq oral potassium given today -Repeat BMP tomorrow and magnesium tomorrow Hypertensive urgency -Encourage patient to take oral metoprolol 25 mg daily -Follow-up blood pressures -Could be related to untreated pain -Continue hydralazine as needed DVT ppx: Heparin subcu Code status: Full code Anticipated discharge place: Pending clinical course Anticipated discharge time: Pending clinical course Objective - Vital Signs Vital signs: Vital Signs Temp 98.3 F 06/29/23 06:52 Pulse 71 06/29/23 06:52 Resp 17 06/29/23 06:52 BP 184/86 06/29/23 06:52 Pulse Ox 95 06/29/23 06:52 FiO2 Intake & Output 06/28/23 06/29/23 06/29/23 18:59 06:59 18:59 Other: Voiding Method Toilet # Voids 4 2 # Bowel Movements 3 - Labs CBC & Chem 7: 06/29/23 03:57 06/29/23 03:57 Labs: Abnormal Lab Results - Last 24 Hours (Table) 06/28/23 06/29/23 06/29/23 Range/Units 06:10 03:57 03:57 RBC 2.38 L (4.40-5.60) X 10*6/uL Hgb 7.3 L (13.0-17.0) g/dL Hct 23.0 L (39.6-50.0) % MCHC 31.7 L (32.0-37.0) g/dL RDW 15.6 H (11.5-14.5) % MPV 9.1 L (9.5-12.2) FL Immature Gran # 0.06 H (0.00-0.04) X 10*3/uL Potassium 3.3 L (3.5-5.5) mmol/L BUN/Creatinine Ratio 23.00 H (12.00-20.00) Ratio Glucose 118 H (70-110) mg/dL Calcium 8.4 L (8.7-10.3) mg/dL Iron 17 L (65-175) UG/DL TIBC 227 L (228-460) UG/DL % Saturation 7.49 L (15.00-50.00) Transferrin 162.0 L (204.0-354.0) mg/dL Total Bilirubin <0.2 L (0.3-1.2) mg/dL AST 53 H (14-35) U/L ALT 77 H (10-49) U/L Total Protein 5.6 L (6.2-8.2) g/dL Albumin 3.2 L (3.8-4.9) g/dL Albumin/Globulin Ratio 1.33 L (1.60-3.17) Ratio Microbiology - Last 24 Hours (Table) 06/26/23 08:46 Blood Culture - Preliminary Blood 06/25/23 09:51 Blood Culture - Preliminary Blood
[2023-06-29] MEDS: POTASSIUM CHLORIDE ER 20 MEQ TAB.ER PO STA (13:33)
[2023-06-29] MEDS: ASCORBIC ACID 500 MG TAB PO SCH (13:33)
[2023-06-29] MEDS: FERROUS SULFATE 325 MG TAB PO SCH (13:33)
[2023-06-29 22:00] VITALS: RESP 18
[2023-06-30] MEDS: hydrALAZINE HCL 20 MG/ML 1 ML VIAL IVP STA (05:57)
[2023-06-30 07:24] LABS: African American GFR (CKD) >90 (>60 ml/min/1.73 sqM); Anion Gap 7 mmol/L; Blood Urea Nitrogen 18 mg/dL (9-20); Calcium 8.5 mg/dL (8.4-10.2); Carbon Dioxide 25 mmol/L (22-30); Chloride 108 mmol/L (98-107); Glucose 101 mg/dL (74-99); Non-African American GFR(CKD) >90 (>60 ml/min/1.73 sqM); Potassium 3.5 mmol/L (3.5-5.1); Sodium 140 mmol/L (137-145)
[2023-06-30 07:32] LABS: Basophils # (A) 0.1 k/uL (0-0.2); Basophils % (A) 1 %; Eosinophils # (A) 0.2 k/uL (0-0.7); Eosinophils % (A) 3 %; HCT 26.6 % (39.0-53.0); HGB 8.1 gm/dL (13.0-17.5); Lymphocytes # (A) 0.8 k/uL (1.0-4.8); Lymphocytes % (A) 9 %; MCH 30.3 pg (25.0-35.0); MCHC 30.6 g/dL (31.0-37.0); Macrocytosis Slight; Mean Platelet Volume 7.4; Monocytes # (A) 0.7 k/uL (0-1.0); Monocytes % (A) 8 %; Neutrophils # (A) 6.9 k/uL (1.3-7.7); Neutrophils % (A) 78 %; Platelet Count 470 k/uL (150-450); RBC 2.69 m/uL (4.30-5.90); RDW 15.4 % (11.5-15.5); WBC 8.8 k/uL (3.8-10.6)
--- NOTE | 2023-06-30 08:32 | P.PN ---
Subjective Progress Note Date: 06/30/23 Principal diagnosis: 1. L5-S1 osteomyelitis discitis 2. 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 Left lower extremity weakness 4. Mechanical low back pain Patient seen and examined this morning. Patient is resting comfortably in bed. Sitter is at bedside. Patient remains pleasantly confused, his mentation has mildly confused. He states his pain is currently managed. Surgical dressing to the lumbar spine is dry and intact. No acute concerns at this time. Patient is cleared from an Orthopedic standpoint for discharge when medically stable. Objective - Vital Signs Vital signs: Vital Signs Temp 98.6 F 06/30/23 06:57 Pulse 85 06/30/23 06:57 Resp 18 06/30/23 06:57 BP 157/74 06/30/23 06:57 Pulse Ox 94 L 06/30/23 06:57 FiO2 Intake & Output 06/29/23 06/30/23 06/30/23 18:59 06:59 18:59 Other: Voiding Method Toilet # Voids 2 - Exam General: The patient is awake and alert, in no acute distress. Skin: Skin is warm and dry with no obvious rashes or lesions. Surgical incision to the lumbar spine, surgical dressing is clean dry and intact. Eye: Pupils are equal, round and reactive to light, extra-ocular movements are intact; there is normal conjunctiva bilaterally. Neck: The neck is supple, there is no tenderness and ROM intact. Respiratory: Respirations are non-labored, breath sounds are equal. Gastrointestinal: Soft, non-distended, non-tender abdomen. Back: There is no tenderness to palpation in the midline lumbar region. There is no obvious deformity. Musculoskeletal: ROM limited secondary to pain. Bilateral upper extremities 5/5, Bilateral lower extremities 5/5 Neurological: CN 2-12 intact. There are no obvious motor or sensory deficits. Movement and coordination equal and intact. Sensory exam to light touch intact C5-T1 and intact from L2-S1. Reflexes 2/4 in bilateral upper and lower extremities. Negative Hoffmans, babinski, and clonus signs. Psychiatric: Cooperative, remains confused - Labs CBC & Chem 7: 06/30/23 05:53 06/30/23 05:53 Labs: Abnormal Lab Results - Last 24 Hours (Table) 06/29/23 06/29/23 06/30/23 Range/Units 03:57 03:57 05:53 RBC 2.38 L (4.40-5.60) X 10*6/uL Hgb 7.3 L (13.0-17.0) g/dL Hct 23.0 L (39.6-50.0) % MCHC 31.7 L (32.0-37.0) g/dL RDW 15.6 H (11.5-14.5) % Plt Count (150-450) k/uL MPV 9.1 L (9.5-12.2) FL Immature Gran # 0.06 H (0.00-0.04) X 10*3/uL Lymphocytes # (1.0-4.8) k/uL Potassium 3.3 L (3.5-5.5) mmol/L Chloride 108 H (98-107) mmol/L BUN/Creatinine Ratio 23.00 H (12.00-20.00) Ratio Glucose 118 H 101 H (70-110) mg/dL Calcium 8.4 L (8.7-10.3) mg/dL Total Bilirubin <0.2 L (0.3-1.2) mg/dL AST 53 H (14-35) U/L ALT 77 H (10-49) U/L Total Protein 5.6 L (6.2-8.2) g/dL Albumin 3.2 L (3.8-4.9) g/dL Albumin/Globulin Ratio 1.33 L (1.60-3.17) Ratio 06/30/23 Range/Units 05:53 RBC 2.69 L (4.40-5.60) X 10*6/uL Hgb 8.1 L (13.0-17.0) g/dL Hct 26.6 L (39.6-50.0) % MCHC 30.6 L (32.0-37.0) g/dL RDW (11.5-14.5) % Plt Count 470 H (150-450) k/uL MPV (9.5-12.2) FL Immature Gran # (0.00-0.04) X 10*3/uL Lymphocytes # 0.8 L (1.0-4.8) k/uL Potassium (3.5-5.5) mmol/L Chloride (98-107) mmol/L BUN/Creatinine Ratio (12.00-20.00) Ratio Glucose (70-110) mg/dL Calcium (8.7-10.3) mg/dL Total Bilirubin (0.3-1.2) mg/dL AST (14-35) U/L ALT (10-49) U/L Total Protein (6.2-8.2) g/dL Albumin (3.8-4.9) g/dL Albumin/Globulin Ratio (1.60-3.17) Ratio Microbiology - Last 24 Hours (Table) 06/26/23 08:46 Blood Culture - Preliminary Blood Assessment and Plan Assessment: -Postop day 8: L4-S1 decompression and fusion -Altered mental status 1. L5-S1 osteomyelitis discitis 2. 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 Left lower extremity weakness 4. Mechanical low back pain Plan: -Appreciate edi consultant and team management. -Activity: Ambulate QID, OOB all meals, up and about, limit lifting bending twisting to less than 5 lbs. Use walker or cane if needed for stability. -Daily PT/OT, increase ambulation strength and balance. -Brace when up and about, not needed in bed or chair -Pain control: Adequate at this time -Meds: Reviewed -GI ppx: senna, MOM -DVT PPX: Heparin, *JACKSON hose need to be applied, on during the day and off at night. -Hygiene: Keep incision clean and dry. -Encourage IS 10x/hr -Dispo: Clinically pending, patient is cleared from an Orthopedic standpoint for discharge, when medically stable. We will be available to see patient if needed. *I reviewed and discussed this case with my attending Dr. Hogan, whom has reviewed this chart and films and is in agreement with assessment and plan of care as outlined above. I have personally seen and examined the patient, performed the documentation and the assessment and plan as written. Number of minutes spent on the visit: 30m.
[2023-06-30] MEDS: VANCOMYCIN 1,250 MG in SODIUM CHLORIDE 0.9% 250 ML IVPB ONE (12:10)
--- NOTE | 2023-06-30 13:09 | P.DS ---
Providers Date of admission: 06/16/23 16:50 Expected date of discharge: 06/30/23 Attending physician: Bhakti Oneal DO Consults: 06/16/23 16:25 Consult Physician Routine Consulting Provider: Roberto Hogan Consult Reason/Comments: spinal osteo Do you want consulting provider notified?: Already Contacted 06/17/23 15:44 Consult Physician Routine Consulting Provider: Joaquin Lewis Consult Reason/Comments: osteomyelitis Do you want consulting provider notified?: Yes Primary care physician: Josias Luis [facility] Course: Discharge Diagnosis: Osteomyelitis of the lumbar spine Sepsis secondary to above Toxic metabolic encephalopathy Acute blood loss anemia, anticipated outcome of surgery Iron deficiency anemia Hypokalemia Hypertensive urgency Hospital Course: 68-year-old male with history of hypertension, anxiety presenting from outpatient neurology office with concern for persistent low back pain of left leg pain for few months. Had outpatient MRI concerning for extensive osteomyelitis with discitis involving L5-S1. MRI shows L5-S1 discitis with L5- S1 osteomyelitis, no obvious epidural collection, epidural thickening redemonstrated. Paraspinal inflammatory changes noted. 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 Cervical and thoracic spine MRI shows acute discitis/osteomyelitis involving the inferior T7 vertebra through the superior T9 vertebra. Status post lumbar biopsy. Cultures no growth to date. Biopsy showed osteomyelitis and wound culture negative growth to date. Maintained on IV vancomycin. ID following. Also started on IV cefepime. Patient did become delirious. Sitter at bedside. Change in mental status likely attributed to hospital-acquired del irium as well as medication use. Patient continues to have bowel movements, no urinary retention. Repeat CT head did not show any acute process. Mental status improved with discontinuing gabapentin, reducing narcotic use. Patient being discharged home with IV antibiotics for 6 weeks, vancomycin and ceftriaxone. Home care arranged as well as will be present to help out. Patient also found to have iron deficiency anemia, needs further follow-up with PCP. Started on oral iron. Patient also needs further follow-up with regards to hypertension. Patient seen and examined at bedside. Vital signs reviewed and stable. General: Nontoxic, no distress, appears at stated age Derm: Warm, dry, dressing clean, dry, intact Head: Atraumatic, normocephalic, symmetric Eyes: EOMI, no lid lag, anicteric sclera Mouth: No lip lesion, mucus membranes moist Cardiovascular: S1S2 reg, no murmur Lungs: CTA bilateral, no rhonchi, no rales, no accessory muscle use Abdominal: Soft, nontender to palpation, no guarding, no appreciable organomegaly Ext: No gross muscle atrophy, no edema, no contractures Neuro: CN II-XI grossly intact, no focal neuro deficits Psych: Alert, oriented, appropriate affect A total of 33 minutes of time were spent preparing this complex discharge summary. Patient was discharged on 06/30/2023 at 11. Patient Condition at Discharge: Stable Plan - Discharge Summary New Discharge Prescriptions: New cefTRIAXone [Rocephin] 2 gm IVPB Q24HR each Vancomycin 1,250 mg IVPB DIRECTED each traZODone HCL [Desyrel] 50 mg PO BID tab Ferrous Sulfate [Iron (65 MG Elemental)] 325 mg PO W/LUNCH #90 tab Melatonin 3 mg PO HS #30 tab Ascorbic Acid [Vitamin C] 500 mg PO DAILY #60 tab oxyCODONE HCL/ACETAMINOPHEN [Percocet 7.5-325 mg] 1 tab PO Q4HR PRN #40 tab PRN Reason: Pain Sennosides/Docusate Sodium [Senna Plus 8.6-50 mg Softgel] 1 each PO DAILY PRN #20 capsule PRN Reason: Constipation Ibuprofen 600 mg PO Q8H PRN #60 tab PRN Reason: Pain Control Acetaminophen Tab [Tylenol] 650 mg PO Q6HR #60 tab Continue Metoprolol Succinate [Metoprolol Succinate ER] 25 mg PO DAILY Discontinued HYDROcodone/APAP 10-325MG [[place] 10-325] 1 tab PO Q6HR PRN PRN Reason: Pain clonazePAM [KlonoPIN] 1 mg PO DAILY traZODone HCL 100 mg PO BID Discharge Medication List Metoprolol Succinate [Metoprolol Succinate ER] 25 mg PO DAILY 06/16/23 [History] Sennosides/Docusate Sodium [Senna Plus 8.6-50 mg Softgel] 1 each PO DAILY PRN #20 capsule 06/24/23 [Rx] oxyCODONE HCL/ACETAMINOPHEN [Percocet 7.5-325 mg] 1 tab PO Q4HR PRN #40 tab 06/24/23 [Rx] Acetaminophen Tab [Tylenol] 650 mg PO Q6HR #60 tab 06/30/23 [Rx] Ascorbic Acid [Vitamin C] 500 mg PO DAILY #60 tab 06/30/23 [Rx] Ferrous Sulfate [Iron (65 MG Elemental)] 325 mg PO W/LUNCH #90 tab 06/30/23 [Rx] Ibuprofen 600 mg PO Q8H PRN #60 tab 06/30/23 [Rx] Melatonin 3 mg PO HS #30 tab 06/30/23 [Rx] Vancomycin 1,250 mg IVPB DIRECTED each 06/30/23 [Rx] cefTRIAXone [Rocephin] 2 gm IVPB Q24HR each 06/30/23 [Rx] traZODone HCL [Desyrel] 50 mg PO BID tab 06/30/23 [Rx] Follow up Appointment(s)/Referral(s): Josias Velasquez MD [Primary Care Provider] - 07/02/23 12:30 pm (With Brad) [facility], [REFERRING] - As Needed ([facility] will deliver supplies to your house tonight between 6-8 pm. ) Roberto Hogan DO [Doctor of Osteopathic Medicine] - 07/07/23 8:45 am Joaquin Lewis MD [STAFF PHYSICIAN] - 1 Week (Please call office) [facility], [NON-STAFF] - 1-2 Days ([facility] will call you to schedule your visits for in home IV antibiotic teaching. Your first visit will be early tomorrow. ) Rehan [facility]Sangita [NON-STAFF] - As Needed (LSO back brace) Patient Instructions/Handouts: Narcotic Safety (DC), Encephalopathy (DC) Activity/Diet/Wound Care/Special Instructions: Spine Discharge and Recovery Instructions Date of Surgery: [] Diagnosis: [] Procedure: [] Medications: See medication list All medication refills should be obtained through your primary care doctor or your clinic spine surgeon. Please discuss prescription refills at your follow up appointment. Do not call the hospital for medication refills. Activity: Encourage ambulation with assist of walker, Up and about 6-8x daily PT/OT daily work on balance, strength and mobility Up in chair with all meals Shower daily Brace: Use brace when up and about, do not wear in bed or shower Dressing: Leave your dressing in place for a total of 3 days post operatively. Then you may remove your dressing and leave open to air. Keep the area clean and if not able to keep area clean, then cover with sterile gauze and tape. Showering: You may shower 3 days after your procedure allowing soap and water to run over incision. Do not scrub. Do not soak. Blot dry. Follow up: Please confirm a follow up appointment with your surgeon 2 weeks post operatively. Please make an appointment to follow up with your PCP in 1-2 weeks after surgery for evaluation `3 phase, 3-week plan POST OP WEEKS 1-3 1. Lifting/carrying/pushing/pulling limited to less than 5 pounds. 2. Do not sit for longer than 15 minutes at one time. Get up and walk around. Prolonged sitting is NOT advised. If you lay down, see if you can tolerate laying down on you front (belly side) 3. Walk for periods of 15 minutes = 1 mile but no longer; do it multiple times times each day. 4. Ice your low back after activity. POST OP WEEKS 3-6 1. Lifting limited to less than 20 pounds. 2. Do not sit for longer than 30 minutes at a time. Frequently change positions. Use a sit-to stand workstation or take frequent breaks from sitting if you have returned to work. 3. Walk for 30 minutes each day. If possible, do these three or more times a day POST OP WEEKS 6+ At your 6-week appointment we will give you a physical therapy referral to focus on a core stabilization and strengthening program. You should also work on leg & buttock strengthening, hamstring & quadriceps stretching, and continue a low impact aerobic activity program such as swimming, walking, or riding a stationary bicycle. During the initial 6 weeks after your surgery, you are at the highest risk of re-injuring your spine. You should generally avoid BLTs (bending, lifting and twisting combination motions) and follow the above guidelines to reduce the chance of reinjury. You can anticipate post op appointments in our office at approximately 3 weeks and 6 weeks after your surgery. INCISION CARE: If your incision is not draining you do NOT need to cover it with a dressing. Keep your incision clean, dry and intact. In most cases, we apply skin glue, ashli or sutures to the incision at the time of surgery. This will be like a crust or have the appearance of a scab and will fall off in time on its own. The stitches or ashli need to be removed at 3 weeks post op appointment. You may begin to shower 3 days after surgery (this allows the glue to katz well). However, please avoid scrubbing the incision site or peeling off any of the skin glue. This will ensure optimal h ealing of your incision. Also, during this time avoid soaking the incision area in water - this includes swimming pools, hot tubs or baths. No ointments, lotions or oils on the incision until your surgeon allows. Leave ashli, sutures or glue in place. Neurological dysfunction that comes on suddenly can also be a sign of a stroke. Below some common symptoms of a stroke are listed: B - balance difficulty such as sudden onset walking or leaning to one side - NEW E - eye problem such as sudden double vision or trouble seeing on one side - NEW F - Facial weakness or numbness on one side - NEW A - Arm or leg weakness or numbness on one side - NEW S - Slurred speech or difficulty with word finding - NEW T - Time is BRAIN! Call 911 as soon as you recognize these symptoms Diet: Consume a regular diet rich in vegetables and lean protein such as chicken or fish. You should consume in a ratio of approximately 20% fats|40% carbohydrates|40%protein. Vegetables, sweet potatoes, brown rice or quinoa are examples of good carbohydrates. Chips, white bread, cookies and sweets/sugar are examples of bad carbohydrates. Limit your bad carbs, go wild with good carbs. "Life's Simple 7" Guidelines as per [place] [employer] These will help you reclaim your life after surgery and dry plasterer helper in your recovery, keeping in mind your restrictions. (1) Get Active. Physical activity can help people lose weight, control high blood pressure and cholesterol, feel emotionally better, and sleep better. (2) Control Cholesterol. Avoid a diet high in saturated fat, trans fat, & cholesterol. Limit whole milk & cream, ice cream, butter, egg yolks, processed meats (like sausage and hot dogs), and fatty meats. Choose healthy foods that are low in saturated fat, trans fat and cholesterol which include: Fruits and vegetables, fiber rich grain products (like whole grain pasta and brown rice), lean meat such as chicken, fish, nuts, seeds, and legumes. (3) Eat Better. Eat small portions. Shop at the grocery with a list and do not stray from it. Tips for a healthy diet include: Limit sodium intake to less than 1500mg daily, avoid prepackaged, processed, and fast foods, choose a diet rich in fruits, vegetables, and whole grain, high fiber foods, and limit saturated & cholesterol in your diet. (4) Manage Blood Pressure. If you have high blood pressure, you should have a cuff at home so that you can check your blood pressure regularly. Be sure you have a good cuff. An arm one is generally better than a wrist one. Bring the cuff to a doctor's appointment to validate that the measurements that your cuff are taking are accurate. Take your blood pressure twice daily when you are sitting down and relaxing. Record the numbers in a log and bring this log with you to your doctors' appointments. (5) Lose Weight if your BMI is above 25. A healthy BMI is between 19-25. To calculate Your BMI, you may use a Standard BMI Calculator on the NIH BMI website: <www.nhlbi.nih.gov/guidelines/obesity/BMI/bmicalc.htm>. Weigh oneself daily. If you are overweight, set a goal to lose weight. A pound a week loss if needed is a good target. (6) Reduce Blood Sugar. Limit foods and liquids with "added sugars." (Added sugars include sucrose, fructose, glucose, maltose, dextrose, high fructose corn syrup, corn syrup, concentrated fruit juice and honey). (7) Stop Smoking. If you smoke, quitting smoking is one of the best things that you can do for your health. Smoking increases your risk of heart attack, stroke, and peripheral vascular disease, which is a build-up of plaque in your arteries. Please discard all the cigarettes and lighters in your house. Have a plan for what you will do when you have the urge to smoke. Direct and second- hand smoke shortens your life as well as the lives of your family, friends and others around you. For your health and the health of those around you, please consider quitting! Proper Bending Body Mechanics: Maintain a wide stance with one foot slightly in front of the other. Keep your back straight. Bend utilizing the strength in your hips and knees. Do not bend at the waist. Maintain the lifted object at your waist-level close to your body. Avoid lifting weight that causes immediately pain or pain anywhere in the body afterwards. Smoking/Nicotine If there was ever one thing that you could do to increase your overall health, decrease your risk of cardiovascular problems by about 39% the second you make the choice, it is to STOP SMOKING. Your body's most instant gratification is the second you stop smoking. We have all heard the studies, read the articles but it is true, smoking is extremely bad for your overall health, and moreover it is detrimental to your bone health. Nicotine, IN ANY FORM, kills bone cells, prevents your body from healing fractures, and significantly prolongs healing after surgery. In spine surgery specifically, it increases your risk of not healing your bones to create a fusion and increases your risk of having a revision surgery due to this up to 60%. I know it is hard. I know it feels impossible. But there are ways. Take control of your life. We are here to help you through it. And when you are ready, ask us and we can direct you to help if you desire. Use the START Plan to Quit Smoking (please visit the Helpguide.org website listed below for more information): S = Set a quit date. Choose a date within the next 2 weeks, so you have enough time to prepare without losing your motivation to quit. If you mainly smoke at work, quit on the weekend, so you have a few days to adjust to the change. T = Tell family, friends, and co-workers that you plan to quit. Let your friends and family in on your plan to quit smoking and tell them you need their support and encouragement to stop. Look for a quit alissa who wants to stop smoking as well. You can help each other get through the rough times. A = Anticipate and plan for the challenges you'll face while quitting. Most people who begin smoking again do so within the first 3 months. You can help yourself make it through by preparing ahead for common challenges, such as nicotine withdrawal and cigarette cravings. R = Remove cigarettes and other tobacco products from your home, car, and work. Throw away all your cigarettes (no emergency pack!), lighters, ashtrays, and matches. Wash your clothes and freshen up anything that smells like smoke. Shampoo your car, clean your drapes and carpet, and steam your furniture. T = Talk to your doctor about getting help to quit. Your doctor can prescribe medication to help with withdrawal and suggest other alternatives. If you can't see a doctor, you can get many products over the counter at your local pharmacy or grocery store, including the nicotine patch, nicotine lozenges, and nicotine gum. Resources for Quitting Smoking: <https://www.[place].gov/documents/[facility]/Quit_Tobacco_Resources_for_patients_313 480_7.pdf> Supplementation: Take recommended dosages of Vitamin D and Calcium to help fortify your bones and help them to heal. See your health maintenance packet for dosages and recommended levels. DVT/VTE prophylaxis: You will be given compression stockings from the hospital. Wear these daily for the first two weeks after surgery. You may take them off at night. You may be prescribed a medication to help thin your blood. Take this as directed. If you are not prescribed this medication, early and frequent ambulation has been shown to be the best prophylaxis to deep vein thrombosis and sequelae related to this event. Discharge Disposition: HOME WITH HOME HEALTH SERVICES
[2023-06-30 14:29] VITALS: BP 150/72; PULSE 76; TEMP 98.4
== END 2023-06-30 15:53 | disposition home health service (06) | DRG 453 ==
LOC: EC 14:23 → 4SSUR 16:50 → 6NMEDSUR 20:48 → 4SSUR 06-18 13:17
PROVIDERS: ADMIT Internal Medicine; ATTEND Internal Medicine
PROC: 0QB03ZX Excision of Lumbar Vertebra, Percutaneous Approach, Diagnostic (ICD-10-PCS; 2023-06-18)
PROC: 0QB13ZX Excision of Sacrum, Percutaneous Approach, Diagnostic (ICD-10-PCS; 2023-06-18)
PROC: 02HV33Z Insertion of Infusion Device into Superior Vena Cava, Percutaneous Approach (ICD-10-PCS; 2023-06-18)
PROC: 0SG0071 Fusion of Lumbar Vertebral Joint with Autologous Tissue Substitute, Posterior Approach, Posterior Column, Open Approach (ICD-10-PCS; 2023-06-22)
PROC: 0QC00ZZ Extirpation of Matter from Lumbar Vertebra, Open Approach (ICD-10-PCS; 2023-06-22)
PROC: 0SG30AJ Fusion of Lumbosacral Joint with Interbody Fusion Device, Posterior Approach, Anterior Column, Open Approach (ICD-10-PCS; 2023-06-22)
PROC: 0SG3071 Fusion of Lumbosacral Joint with Autologous Tissue Substitute, Posterior Approach, Posterior Column, Open Approach (ICD-10-PCS; 2023-06-22)
PROC: 0ST20ZZ Resection of Lumbar Vertebral Disc, Open Approach (ICD-10-PCS; 2023-06-22)
PROC: 0ST40ZZ Resection of Lumbosacral Disc, Open Approach (ICD-10-PCS; 2023-06-22)
PROC: 01NB0ZZ Release Lumbar Nerve, Open Approach (ICD-10-PCS; 2023-06-22)
PROC: 01NR0ZZ Release Sacral Nerve, Open Approach (ICD-10-PCS; 2023-06-22)
PROC: 0QC Lower Bones, Extirpation (ICD-10-PCS; 2023-06-22)
PROC: 8E0WXBZ Computer Assisted Procedure of Trunk Region (ICD-10-PCS; 2023-06-22)
PROC: 0SG00AJ Fusion of Lumbar Vertebral Joint with Interbody Fusion Device, Posterior Approach, Anterior Column, Open Approach (ICD-10-PCS; principal; 2023-06-22 11:00)
DX: M46.27 Osteomyelitis of vertebra, lumbosacral region (principal); A41.9 Sepsis, unspecified organism; M31.19 Other thrombotic microangiopathy; G92.8 Other toxic encephalopathy; G95.89 Other specified diseases of spinal cord; F05 Delirium due to known physiological condition; M48.56XA Collapsed vertebra, not elsewhere classified, lumbar region, initial encounter for fracture; M48.57XA Collapsed vertebra, not elsewhere classified, lumbosacral region, initial encounter for fracture; D62 Acute posthemorrhagic anemia; M46.26 Osteomyelitis of vertebra, lumbar region; I10 Essential (primary) hypertension; I16.0 Hypertensive urgency; M46.47 Discitis, unspecified, lumbosacral region; M21.372 Foot drop, left foot; F17.210 Nicotine dependence, cigarettes, uncomplicated; M47.27 Other spondylosis with radiculopathy, lumbosacral region; G89.29 Other chronic pain; M48.061 Spinal stenosis, lumbar region without neurogenic claudication; H91.91 Unspecified hearing loss, right ear; T40.2X5A Adverse effect of other opioids, initial encounter; F41.9 Anxiety disorder, unspecified; M48.02 Spinal stenosis, cervical region; M48.07 Spinal stenosis, lumbosacral region; R27.0 Ataxia, unspecified; E87.6 Hypokalemia; M21.371 Foot drop, right foot; G47.8 Other sleep disorders; Z87.820 Personal history of traumatic brain injury; Z91.81 History of falling; Z79.899 Other long term (current) drug therapy; Z88.1 Allergy status to other antibiotic agents; Z88.0 Allergy status to penicillin; Z91.030 Bee allergy status
CPT/HCPCS: 36415; 36573; 70450; 71045; 72100; 72128; 72131; 72156; 72157; 80048; 80053; 80202; 81001; 82565; 83540; 83550; 83605; 83735; 84132; 84153; 84165; 84166; 84443; 85025; 85027; 85610; 85652; 85730; 86140; 86850; 86900; 86901; 86920; 87040; 87070; 87075; 87205; 88304; 88307; 88342; 93306; 94760; 96365; 96366; 96375; 96376; 99285

== ENCOUNTER → 2023-07-06 | Outpatient (CLI) | payer MEDICARE ==
[2023-07-06 18:35] LABS: Basophils # (A) 0.12 X 10*3/uL (0.00-0.10); Basophils % (A) 1.2 %; Eosinophils # (A) 0.18 X 10*3/uL (0.04-0.35); Eosinophils % (A) 1.8 %; HCT 30.4 % (39.6-50.0); HGB 9.5 g/dL (13.0-17.0); Lymphocytes % (A) 16.2 %; MCH 31.3 pg (27.0-32.0); MCHC 31.3 g/dL (32.0-37.0); Mean Platelet Volume 8.8 FL (9.5-12.2); Monocytes # (A) 1.02 X 10*3/uL (0.20-1.00); Monocytes % (A) 10.3 %; NRBC Per 100 WBC 0 X 10*3/uL (0.00-0.01); Neutrophils # (A) 6.89 X 10*3/uL (1.80-7.70); Platelet Count 564 X 10*3/uL (140-440); RBC 3.04 X 10*6/uL (4.40-5.60); RDW 16.9 % (11.5-14.5); WBC 9.86 X 10*3/uL (4.50-10.00)
[2023-07-06 19:17] LABS: Erythrocyte Sedimentation Rate 12 mm/Hr (0-20)
[2023-07-06 19:22] LABS: BUN/Creat Ratio 12.43 Ratio (12.00-20.00); Blood Urea Nitrogen 8.7 mg/dL (9.0-27.0); Chloride 99 mmol/L (96-109); Glucose 99 mg/dL (70-110); Potassium 3.3 mmol/L (3.5-5.5); Sodium 142 mmol/L (135-145)
[2023-07-06 19:23] LABS: ALT 58 U/L (10-49); AST 40 U/L (14-35); Albumin 4.1 g/dL (3.8-4.9); Albumin/Globulin Ratio 1.41 Ratio (1.60-3.17); Alkaline Phosphatase 133 U/L (41-126); Calcium 9.4 mg/dL (8.7-10.3); Carbon Dioxide 30.4 mmol/L (21.6-31.8); Globulin 2.9 g/dL (1.6-3.3); Total Bilirubin 0.4 mg/dL (0.3-1.2)
== END | disposition home or self-care (01) ==
LOC: LABWHC1 12:37
PROVIDERS: ATTEND Internal Medicine Infectious Disease
DX: M46.26 Osteomyelitis of vertebra, lumbar region (principal); M46.37 Infection of intervertebral disc (pyogenic), lumbosacral region
CPT/HCPCS: 36415; 80053; 80202; 85025; 85652; 86140

== ENCOUNTER 2023-07-12 10:45 | Emergency (ER) | payer MEDICARE ==
--- NOTE | 2023-07-12 11:08 | ED ---
Recheck HPI - General Source: patient, RN notes reviewed Mode of arrival: ambulatory Limitations: no limitations <Oneyda Corado - Last Filed: 07/12/23 11:07> <Fransisco Damian - Last Filed: 07/12/23 14:42> - General Chief Complaint: Recheck/Abnormal Lab/Rx Stated Complaint: Pick line came out Time Seen by Provider: 07/12/23 11:07 - History of Present Illness Initial Comments: Quick note: 68-year-old male presented to the ER with a chief complaint of PICC line issue. Patient is receiving IV antibiotics for osteomyelitis. His last dose was yesterday. Patient states nurse came today to give him his next dose and his PICC line came out. Patient denies any other complaints. (Oneyda Corado) Patient presenting with need for new PICC line placement. PICC line had come out and the patient needs several weeks of additional IV antibiotics. No complaints. He did state that his infectious disease doctor had requested laboratory testing. This will be obtained as part of the patient's visit. (Fransisco Damian) - Related Data Home Medications Medication Instructions Recorded Confirmed Metoprolol Succinate [Metoprolol 25 mg PO DAILY 06/16/23 07/12/23 Succinate ER] Acetaminophen Tab [Tylenol] 650 mg PO Q6HR PRN 07/12/23 07/12/23 Cyclobenzaprine [Flexeril] 10 mg PO TID 07/12/23 07/12/23 Gabapentin 300 mg PO HS 07/12/23 07/12/23 HYDROcodone/APAP 7.5-325MG [Canjilon 1 tab PO Q6H PRN 07/12/23 07/12/23 7.5-325] Ibuprofen 600 mg PO Q8H 07/12/23 07/12/23 Mv-Min/Folic/K1/Lycopen/Lutein 1 tab PO DAILY 07/12/23 07/12/23 [Centrum Silver Men Tablet] Sennosides/Docusate Sodium [Senna 1 tab PO DAILY PRN 07/12/23 07/12/23 Plus 8.6-50 mg Softgel] Vancomycin 1,500 mg IVPB Q12H 07/12/23 07/12/23 traZODone HCL [Desyrel] 50 mg PO BID 07/12/23 07/12/23 Previous Rx's Medication Instructions Recorded Melatonin 3 mg PO HS #30 tab 06/30/23 cefTRIAXone [Rocephin] 2 gm IVPB Q24HR each 06/30/23 Allergies Allergy/AdvReac Type Severity Reaction Status Date / Time bee venom protein (honey bee) Allergy Unknown Unknown Verified 07/12/23 12:03 doxycycline Allergy Unknown Unknown Verified 07/12/23 12:03 Penicillins Allergy Unknown Unknown Verified 07/12/23 12:03 Childhood Review of Systems ROS Other: All systems not noted in ROS Statement are negative. <Oneyda Corado - Last Filed: 07/12/23 11:07> ROS Other: All systems not noted in ROS Statement are negative. <Fransisco Damian - Last Filed: 07/12/23 14:42> ROS Statement: Those systems with pertinent positive or pertinent negative responses have been documented in the HPI. Past Medical History Past Medical History: No Reported History History of Any Multi-Drug Resistant Organisms: None Reported Past Surgical History: No Surgical Hx Reported Past Psychological History: No Psychological Hx Reported Smoking Status: Current every day smoker Past Alcohol Use History: Occasional Past Drug Use History: Marijuana <Oneyda Corado - Last Filed: 07/12/23 11:07> General Exam Limitations: no limitations <Oneyda Corado - Last Filed: 07/12/23 11:07> General appearance: alert, in no apparent distress Head exam: Present: atraumatic, normocephalic Eye exam: Present: normal appearance, PERRL Neck exam: Present: normal inspection. Absent: tenderness, meningismus Respiratory exam: Present: normal lung sounds bilaterally. Absent: respiratory distress, wheezes Cardiovascular Exam: Present: regular rate, normal rhythm GI/Abdominal exam: Present: soft. Absent: distended, tenderness, guarding <Fransisco Damian - Last Filed: 07/12/23 14:42> - General Exam Comments Initial Comments: Visual Physical Exam Vital signs reviewed General: Well-appearing, nontoxic, no acute distress. Head: Normocephalic, atraumatic Eyes: PERRLA, EOMI ENT: Airway patent Chest: Nonlabored breathing Skin: No visual rash, normal skin tone Neuro: Alert and oriented 3 Musculoskeletal: No gross abnormalities (Oneyda Corado) Course Vital Signs 07/12/23 10:56 Temperature 98.5 F Pulse Rate 83 Respiratory 20 Rate Blood Pressure 194/90 O2 Sat by Pulse 93 L Oximetry Medical Decision Making <Oneyda Corado - Last Filed: 07/12/23 11:07> <Fransisco Damian Joana - Last Filed: 07/12/23 14:42> - Medical Decision Making I performed the quick note portion of this chart. Electronically signed by Oneyda Corado PA-C (Oneyda Corado) Was pt. sent in by a medical professional or institution ([facility], [facility], urgent care, hospital, or fpc...) When possible be specific @ -No Did you speak to anyone other than the patient for history (EMS, parent, family, police, friend...)? What history was obtained from this source @ -No Did you review nursing and triage notes (agree or disagree)? Why? @ -I reviewed and agree with nursing and triage notes Were old charts reviewed (outside hosp., previous admission, EMS record, old EKG, old radiological studies, urgent care reports/EKG's, fpc records)? Report findings @ -No old charts were reviewed Differential Diagnosis; need for PICC line placement EKG interpreted by me (3pts min.). @ -As above X-rays interpreted by me (1pt min.). @ -Right lower lobe infiltrate and right-sided pleural effusion, no pneu mothorax CT interpreted by me (1pt min.). @ -None done U/S interpreted by me (1pt. min.). @ -None done What testing was considered but not performed or refused? (CT, X-rays, U/S, labs)? Why? @ -None What meds were considered but not given or refused? Why? @ -None Did you discuss the management of the patient with other professionals (professionals i.e. [facility], [facility], lab, RT, psych nurse, 7th grade social studies teacher, retail management keyholder, teacher, chief juvenile probation officer, shelter case manager)? Give summary @ -No Was smoking cessation discussed for >3mins.? @ -No Was critical care preformed (if so, how long)? @ -No Were there social determinants of health that impacted care today? How? (Homelessness, low income, unemployed, alcoholism, drug addiction, transportation, low edu. Level, literacy, decrease access to med. care, skilled nursing, rehab)? @ -No Was there de-escalation of care discussed even if they declined (Discuss DNR or withdrawal of care, Hospice)? DNR status @ -No What co-morbidities impacted this encounter? (DM, HTN, Smoking, COPD, CAD, Cancer, CVA, ARF, Chemo, Hep., AIDS, mental health diagnosis, sleep apnea, morbid obesity)? @ -Osteomyelitis, need for antibiotics] Was patient admitted / discharged? Hospital course, mention meds given and route, prescriptions, significant lab abnormalities, going to OR and other pertinent info. @ -68-year-old male with need for new PICC line placement. The PICC line team is able to place a catheter in the emergency department. Laboratory studies have been ordered for the convenience of the patient these results are pending. Patient is eager for discharge. Undiagnosed new problem with uncertain prognosis? @ -No Drug Therapy requiring intensive monitoring for toxicity (Heparin, Nitro, Insulin, Cardizem)? @ -No Were any procedures done? @ -No Diagnosis/symptom? @ -[Dislodged PICC line Acute, or Chronic, or Acute on Chronic? @ -Acute Uncomplicated (without systemic symptoms) or Complicated (systemic symptoms)? @ -[default Side effects of treatment? @ -No Exacerbation, Progression, or Severe Exacerbation? @ -No Poses a threat to life or bodily function? How? (Chest pain, [place], [place], pneumonia, PE, COPD, DKA, ARF, appy, cholecystitis, CVA, Diverticulitis, Homicidal, Suicidal, threat to staff... and all critical care pts) @ -No (Fransisco Damian) Disposition <Oneyda Corado - Last Filed: 07/12/23 11:07> Is patient prescribed a controlled substance at d/c from ED?: No Time of Disposition: 14:27 <Fransisco Damian - Last Filed: 07/12/23 14:42> Clinical Impression: S/P PICC central line placement Disposition: HOME SELF-CARE Condition: Good Instructions (If sedation given, give patient instructions): PICC (Peripherally Inserted Central Catheter) (DC) Referrals: None,Stated [REFERRING] - 1-2 days
[2023-07-12] MEDS: HYDROcodone/APAP 7.5-325MG 1 EACH TAB PO ONE (13:10)
--- NOTE | 2023-07-12 14:39 | XR ---
EXAMINATION TYPE: XR chest 1V portable DATE OF EXAM: 07/12/2023 COMPARISON: 06/25/2023 INDICATION: PICC line placement TECHNIQUE: Single frontal view of the chest is obtained. FINDINGS: The heart size is normal. The pulmonary vasculature is normal. There is infiltrate in the right lower lobe. Small right pleural effusion has developed. PICC line has been placed with the tip in the distal superior vena cava region. No pneumothorax is ev ident. IMPRESSION: 1. Right lower lobe infiltrate and small effusion. 2. PICC line tip in the distal superior vena cava region.
[2023-07-12 15:06] LABS: Prothrombin Time 10.8 sec (10.0-12.5)
[2023-07-12 15:09] LABS: African American GFR (CKD) >90 (>60 ml/min/1.73 sqM); Anion Gap 1 mmol/L; Anisocytosis Slight; Basophils # (A) 0.1 k/uL (0-0.2); Basophils % (A) 1 %; Blood Urea Nitrogen 11 mg/dL (9-20); Carbon Dioxide 36 mmol/L (22-30); Chloride 102 mmol/L (98-107); Eosinophils # (A) 0.3 k/uL (0-0.7); Eosinophils % (A) 4 %; HCT 31.2 % (39.0-53.0); Hypochromasia Slight; Lymphocytes # (A) 1.5 k/uL (1.0-4.8); Lymphocytes % (A) 16 %; MCH 32.2 pg (25.0-35.0); MCHC 32.2 g/dL (31.0-37.0); Macrocytosis Slight; Mean Platelet Volume 6.9; Monocytes # (A) 0.9 k/uL (0-1.0); Monocytes % (A) 10 %; Neutrophils % (A) 66 %; Non-African American GFR(CKD) >90 (>60 ml/min/1.73 sqM); Platelet Count 320 k/uL (150-450); Potassium 4.2 mmol/L (3.5-5.1); RBC 3.12 m/uL (4.30-5.90); RDW 16.9 % (11.5-15.5); Sodium 139 mmol/L (137-145); WBC 9.1 k/uL (3.8-10.6)
[2023-07-12 15:20] VITALS: BP 179/79; PULSE 80; RESP 18; TEMP 97.9
== END 2023-07-12 15:04 | disposition home or self-care (01) ==
LOC: CATHCVL 10:45
DX: Z45.2 Encounter for adjustment and management of vascular access device (principal); M86.9 Osteomyelitis, unspecified; J90 Pleural effusion, not elsewhere classified; F17.200 Nicotine dependence, unspecified, uncomplicated; F10.90 Alcohol use, unspecified, uncomplicated; F12.90 Cannabis use, unspecified, uncomplicated; Z91.030 Bee allergy status; Z88.1 Allergy status to other antibiotic agents; Z88.0 Allergy status to penicillin; Z79.899 Other long term (current) drug therapy
CPT/HCPCS: 36573; 71045; 80051; 80202; 82565; 84520; 85025; 85610